=== PATIENT | female | born 1965 | race American Indian/Alaskan Native ===

== ENCOUNTER 2016-10-25 04:05 | Emergency (ER) | payer MEDICARE, OTHER ==
[2016-10-25 04:10] VITALS: BMI 34.0
--- NOTE | 2016-10-25 04:21 | ED PDOC ---
Arrival/HPI - General Chief Complaint: Alcohol Ingestion Time Seen by Provider: 10/25/16 04:09 Historian: Patient - History of Present Illness Narrative History of Present Illness (Text): 10/25/16 04:27 Paulette Abdullahi, a 51 year old female, whose past medical history includes hypertension and bronchitis, presents to the emergency department complaining of chest pain for the past two months. pt poor historian. cannot characterize her pain. Patient reports that she was drinking alcohol tonight. Patient denies any fever, shortness of breath, cough, vomiting or any other complaints at this time. after initial assessment, pt noted to be sleeping in nad. 10/25/16 05:47 Time/Duration: > month Symptom Onset: Gradual Symptom Course: Unchanged Activities at Onset: Rest Modifying Factors (Text): none Context: Home Associated Symptoms (Text): none Past Medical History - Provider Review Nursing Documentation Reviewed: Yes - Cardiac Hx Hypertension: Yes - Psychiatric Hx Substance Use: No Family/Social History - Physician Review Nursing Documentation Reviewed: Yes Family/Social History: No Known Family HX Smoking Status: Heavy Smoker > 10 Cigarettes Daily Hx Alcohol Use: Yes Hx Substance Use: No Allergies/Home Meds Allergies/Adverse Reactions: Allergies No Known Allergies Allergy (Verified 10/25/16 04:10) Home Medications: Home Meds Medication Instructions Recorded Confirmed Unobtainable 10/25/16 10/25/16 Review of Systems - Physician Review All systems were reviewed & negative as marked: Yes - Review of Systems Constitutional: absent: Fevers Respiratory: absent: SOB, Cough Cardiovascular: Chest Pain Gastrointestinal: absent: Vomiting Physical Exam Vital Signs Reviewed: Yes Vital Signs Temp Pulse Resp BP Pulse Ox 10/25/16 05:46 97.4 F L 80 19 108/62 100 10/25/16 04:20 98.5 F 76 20 103/59 L 98 Temperature: Afebrile Blood Pressure: Hypotensive Pulse: Regular Respiratory Rate: Normal Appearance: Positive for: Well-Appearing, Non-Toxic, Comfortable Pain Distress: None Mental Status: Positive for: Alert and Oriented X 3 - Systems Exam Head: Present: Atraumatic, Normocephalic Pupils: Present: PERRL Extroacular Muscles: Present: EOMI Conjunctiva: Present: Normal Mouth: Present: Moist Mucous Membranes Neck: Present: Normal Range of Motion Respiratory/Chest: Present: Clear to Auscultation, Good Air Exchange. No: Respiratory Distress, Accessory Muscle Use Cardiovascular: Present: Regular Rate and Rhythm, Normal S1, S2. No: Murmurs Abdomen: Present: Normal Bowel Sounds. No: Tenderness, Distention, Peritoneal Signs Upper Extremity: Present: Normal Inspection. No: Cyanosis, Edema Lower Extremity: Present: Normal Inspection. No: Edema Neurological: Present: GCS=15, CN II-XII Intact, Speech Normal Skin: Present: Warm, Dry, Normal Color. No: Rashes Psychiatric: Present: Alert, Oriented x 3, Normal Insight, Normal Concentration Medical Decision Making ED Course and Treatment: 10/25/16 04:33 Impression: 51 year old female with chest pain. Differential Diagnosis include but are not limited to: Plan: -- EKG -- Chest Xray -- Urinalysis -- Labs -- Reassess and disposition Prior Visits: Notes and results from previous visits were reviewed. Patient reported to emergency department on 10/06/16 for evaluation of chest pain on dry cough. Progress Notes: EKG: Ordered, reviewed, and independently interpreted the EKG. Rate : 68 BPM Rhythm : NSR Interpretation : No ST/T changes Chest X-ray: Chest Xray shows no acute disease. 10/25/16 05:33 pt sleeping in er, in nad. pt with 2 months of chest pain. stable for outpt management. 10/25/16 05:45 10/25/16 06:15 pt noted to be ambulatory in nad, with steady gait. - Lab Interpretations Lab Results: 10/25/16 04:40 10/25/16 04:40 Lab Results 10/25/16 04:40: WBC 5.1, RBC 3.80, Hgb 13.1, Hct 36.3, MCV 95.5, MCH 34.5, MCHC 36.1, RDW 12.7, Plt Count 222, MPV 9.3, Neutrophils % (Manual) Pending, Lymphocytes % (Manual) Pending, Monocytes % (Manual) Pending, PT 10.5, INR 1.00 , APTT 24.2, Sodium 143, Potassium 3.8, Chloride 107, Carbon Dioxide 26, Anion Gap 14, BUN 13, Creatinine 0.8, Est GFR ( Amer) > 60, Est GFR (Non-Af Amer) > 60, Random Glucose 80, Calcium 8.8, Magnesium 1.9, Total Bilirubin 0.5, AST 88 H, ALT 53, Alkaline Phosphatase 126, Lactate Dehydrogenase 984 H, Total Creatine Kinase 484 H, CK-MB (CK-2) 6.0 H, CK-MB (CK-2) % 1.2 L, Troponin I 0.07 , Total Protein 8.1, Albumin 4.1, Globulin 3.9, Albumin/Globulin Ratio 1.1 I have reviewed the lab results: Yes - RAD Interpretation Radiology Orders: 10/25/16 04:25 CHEST PORTABLE [RAD] Stat - EKG Interpretation Interpreted by ED Physician: Yes Type: 12 lead EKG - Scribe Statement The provider has reviewed the documentation as recorded by the Scribe Miles Chicas All medical record entries made by the Scribe were at my direction and personally dictated by me. I have reviewed the chart and agree that the record accurately reflects my personal performance of the history, physical exam, medical decision making, and the department course for this patient. I have also personally directed, reviewed, and agree with the discharge instructions and disposition. Disposition/Present on Arrival - Present on Arrival Any Indicators Present on Arrival: No History of DVT/PE: No History of Uncontrolled Diabetes: No Urinary Catheter: No History of Decub. Ulcer: No History Surgical Site Infection Following: None - Disposition Have Diagnosis and Disposition been Completed?: Yes Diagnosis: Chest pain, Alcohol abuse Disposition: HOME/ ROUTINE Disposition Time: 05:46 Patient Problems: Current Active Problems Problem Status Diagnosed Alcohol abuse Acute Chest pain Acute Condition: STABLE Discharge Instructions (ExitCare): Chest Pain (ED), Abuse of Alcohol (ED) Additional Instructions: please follow up with your doctor/clinic and specialist. return to er with worsening symptoms or concerns. Referrals: Michael Galeano [Primary Care Provider] - Follow up with primary [facility] [Outside] - Follow up with primary [facility] [Outside] - Follow up with primary [facility] [Outside] - Follow up with primary Raghu Rojas MD [Staff Provider] - Follow up with primary
[2016-10-25 05:18] LABS: HEMATOCRIT 36.3 % (36.0-48.0); MEAN CELL VOLUME 95.5 fL (80.0-105.0); MEAN CORPUSCULAR HEMOGLOBIN 34.5 pg (25.0-35.0); MEAN CORPUSCULAR HGB CONC 36.1 g/dl (31.0-37.0); MEAN PLATELET VOLUME 9.3 fl (7.0-11.0); PLATELET COUNT 222 10^3/uL (120.0-450.0); RED CELL DISTRIBUTION WIDTH 12.7 % (11.5-14.5); WHITE BLOOD COUNT 5.1 10^3/ul (4.5-11.0)
[2016-10-25 05:23] LABS: ADD MANUAL DIFF? YES
[2016-10-25 05:28] LABS: ALB/GLOB RATIO 1.1 (1.1-1.8); ALKALINE PHOSPHATASE 126 U/L (38-133); ALT/SGPT 53 U/L (7-56); AST/SGOT 88 U/L (15-39); BILIRUBIN,TOTAL 0.5 mg/dL (0.2-1.3); BLOOD UREA NITROGEN 13 mg/dL (7-21); CALCIUM 8.8 mg/dL (8.4-10.5); CARBON DIOXIDE 26 mmol/L (21-33); CHLORIDE 107 mmol/L (98-107); GFR AFRICAN-AMERICAN > 60; GLUCOSE,RANDOM 80 mg/dL (70-110); MAGNESIUM 1.9 mg/dL (1.7-2.2); POTASSIUM 3.8 mmol/L (3.6-5.0); SODIUM 143 mmol/L (132-148); TOTAL PROTEIN 8.1 g/dL (5.8-8.3)
[2016-10-25 05:39] LABS: TROPONIN I 0.07 ng/mL
[2016-10-25 05:46] LABS: PARTIAL THROMBOPLASTIN TIME 24.2 Seconds (23.7-30.8)
[2016-10-25 05:47] VITALS: BP 108/62; PULSE 80; RESP 19; TEMP 97.4; O2SAT 100
[2016-10-25 06:21] LABS: ATYPICAL LYMPHOCYTE 1 % (0.0-0.0); BAND 1 % (0-2); BASOPHIL 1 % (0.0-1.0); EOSINOPHIL 2 % (0.0-3.0); NEUTROPHIL 30 % (50.0-70.0); PLATELET ESTIMATE NORMAL (NORMAL)
--- NOTE | 2016-10-25 10:39 | RAD ---
HISTORY: cp COMPARISON: No prior. FINDINGS: LUNGS: No active pulmonary disease. PLEURA: No significant pleural effusion identified, no pneumothorax apparent. CARDIOVASCULAR: Normal. OSSEOUS STRUCTURES: No significant abnormalities. VISUALIZED UPPER ABDOMEN: Normal. OTHER FINDINGS: None. IMPRESSION: No active disease.
--- NOTE | 2016-10-26 09:29 | CARD ---
APPROVED REPORT EKG Measurement Heart [id number] <Conclusion> Normal sinus rhythm LVH by voltage Prolonged QT
== END 2016-10-25 06:18 | disposition home or self-care (01) ==
LOC: ED 04:05
DX: F10.10 Alcohol abuse, uncomplicated (principal); R07.9 Chest pain, unspecified; I10 Essential (primary) hypertension

== ENCOUNTER 2016-11-26 02:30 | Observation (INO) | payer MEDICARE, OTHER ==
[2016-11-26 04:33] LABS: ALB/GLOB RATIO 1.1 (1.1-1.8); ALKALINE PHOSPHATASE 95 U/L (38-133); ALT/SGPT 35 U/L (7-56); AST/SGOT 64 U/L (15-39); BILIRUBIN,TOTAL 0.5 mg/dL (0.2-1.3); BLOOD UREA NITROGEN 13 mg/dL (7-21); CALCIUM 8.7 mg/dL (8.4-10.5); CARBON DIOXIDE 27 mmol/L (21-33); CHLORIDE 105 mmol/L (98-107); GFR AFRICAN-AMERICAN > 60; GLUCOSE,RANDOM 82 mg/dL (70-110); POTASSIUM 3.6 mmol/L (3.6-5.0); SODIUM 142 mmol/L (132-148); TOTAL PROTEIN 7.8 g/dL (5.8-8.3)
--- NOTE | 2016-11-26 04:33 | ED PDOC ---
Arrival/HPI - General Chief Complaint: Alcohol Ingestion Time Seen by Provider: 11/26/16 02:52 Historian: Patient - History of Present Illness Narrative History of Present Illness (Text): 11/26/16 02:56 Paulette Abdullahi is a 51 year old female, whose past medical history includes hypertension, who presents to the Emergency department complaining of chest pain for the past few days. Patient states she regularly takes hypertension medication, but does not recall the name. Patient reports she had 1 glass of wine earlier tonight. Patient denies any fever, chills, shortness of breath, nausea, vomiting, diarrhea, urinary symptoms, back pain, neck pain, headache, dizziness, or any other complaints. Time/Duration: Other (few days) Symptom Onset: Gradual Symptom Course: Unchanged, Other (Constant) Activities at Onset: Rest, Light Context: Home Past Medical History - Provider Review Nursing Documentation Reviewed: Yes - Infectious Disease Hx of Infectious Diseases: None - Cardiac Hx Hypertension: Yes - Pulmonary Hx Bronchitis: Yes - Psychiatric Hx Anxiety: Yes Hx Depression: Yes Hx Substance Use: No - Anesthesia Hx Anesthesia: No Family/Social History - Physician Review Nursing Documentation Reviewed: Yes Family/Social History: No Known Family HX Smoking Status: Light Smoker < 10 Cigarettes Daily Hx Alcohol Use: Yes Frequency of alcohol use: Daily Hx Substance Use: No Allergies/Home Meds Allergies/Adverse Reactions: Allergies No Known Allergies Allergy (Verified 11/24/16 23:59) Home Medications: Home Meds Medication Instructions Recorded Confirmed Unobtainable 10/25/16 11/26/16 Review of Systems - Physician Review All systems were reviewed & negative as marked: Yes - Review of Systems Constitutional: Normal. absent: Fevers Eyes: Normal ENT: Normal Respiratory: Normal. absent: SOB, Cough Cardiovascular: Chest Pain Gastrointestinal: Normal. absent: Abdominal Pain, Diarrhea, Nausea, Vomiting Genitourinary Female: Normal. absent: Dysuria, Frequency, Hematuria, Urine Output Changes Musculoskeletal: Normal. absent: Back Pain, Neck Pain Skin: Normal. absent: Rash Neurological: Normal. absent: Headache, Dizziness Endocrine: Normal Hemo/Lymphatic: Normal Psychiatric: Normal Physical Exam Vital Signs Reviewed: Yes Vital Signs Temp Pulse Resp BP Pulse Ox 11/26/16 02:41 97.6 F 72 18 129/87 98 Temperature: Afebrile Blood Pressure: Normal Pulse: Regular Respiratory Rate: Normal Appearance: Positive for: Well-Appearing, Non-Toxic, Comfortable Pain Distress: None Mental Status: Positive for: Alert and Oriented X 3 - Systems Exam Head: Present: Atraumatic, Normocephalic Pupils: Present: PERRL Extroacular Muscles: Present: EOMI Conjunctiva: Present: Normal Mouth: Present: Moist Mucous Membranes Neck: Present: Normal Range of Motion Respiratory/Chest: Present: Clear to Auscultation, Good Air Exchange. No: Respiratory Distress, Accessory Muscle Use Cardiovascular: Present: Regular Rate and Rhythm, Normal S1, S2. No: Murmurs Abdomen: Present: Normal Bowel Sounds. No: Tenderness, Distention, Peritoneal Signs Back: Present: Normal Inspection Upper Extremity: Present: Normal Inspection. No: Cyanosis, Edema Lower Extremity: Present: Normal Inspection. No: Edema Neurological: Present: GCS=15, CN II-XII Intact, Speech Normal Skin: Present: Warm, Dry, Normal Color. No: Rashes Psychiatric: Present: Alert, Oriented x 3, Normal Insight, Normal Concentration Medical Decision Making ED Course and Treatment: 11/26/16 02:56 Impression: 51 year old female complaining of chest pain. Plan: -- EKG -- Chest X-ray -- Labs, cardiac enzymes -- Reassess and disposition Prior Visits: Notes and results from previous visits were reviewed. Progress Notes: Reviewed EKG, NSR at 72 bpm. Prolonged QT. Non-specific ST/T wave changes. 11/26/16 04:45 Case discussed with certified medical coding specialist education reporter, who is aware and agrees with plan. Case discussed with Dr. Malik, who is aware and agrees with plan. Accepts pt in to hospitalist service. Pt will go to Telemetry observation for chest pain. - Lab Interpretations Lab Results: 11/26/16 03:45 11/26/16 03:45 Lab Results 11/26/16 03:45: PT 11.1, INR 1.03, APTT 25.5 11/26/16 03:45: WBC 4.9, RBC 3.52, Hgb 12.1, Hct 35.0 L, MCV 99.4, MCH 34.4, MCHC 34.6, RDW 12.4, Plt Count 237, MPV 9.2 11/26/16 03:45: Sodium 142, Potassium 3.6, Chloride 105, Carbon Dioxide 27, Anion Gap 14, BUN 13, Creatinine 0.7, Est GFR ( Amer) > 60, Est GFR (Non- Af Amer) > 60, Random Glucose 82, Calcium 8.7, Total Bilirubin 0.5, AST 64 H, ALT 35, Alkaline Phosphatase 95, Lactate Dehydrogenase 889 H, Total Creatine Kinase 560 H, CK-MB (CK-2) 4.8 H, CK-MB (CK-2) % Cancelled, Troponin I 0.06, Total Protein 7.8, Albumin 4.0, Globulin 3.8, Albumin/Globulin Ratio 1.1 11/26/16 03:45: Alcohol, Quantitative 209 H I have reviewed the lab results: Yes - RAD Interpretation Radiology Orders: 11/26/16 02:56 CHEST PORTABLE [RAD] Stat [employer] Cutter: ED Physician - EKG Interpretation Interpreted by ED Physician: Yes Type: 12 lead EKG - Scribe Statement The provider has reviewed the documentation as recorded by the Scribe Leonor Knight All medical record entries made by the Scribe were at my direction and personally dictated by me. I have reviewed the chart and agree that the record accurately reflects my personal performance of the history, physical exam, medical decision making, and the department course for this patient. I have also personally directed, reviewed, and agree with the discharge instructions and disposition. Disposition/Present on Arrival - Present on Arrival Any Indicators Present on Arrival: No History of DVT/PE: No History of Uncontrolled Diabetes: No Urinary Catheter: No History of Decub. Ulcer: No History Surgical Site Infection Following: None - Disposition Have Diagnosis and Disposition been Completed?: Yes Diagnosis: Chest pain, Alcohol intoxication Disposition: HOSPITALIZED Disposition Time: 04:57 Patient Plan: Observation Patient Problems: Current Active Problems Problem Status Onset Alcohol intoxication Acute Chest pain Acute Condition: STABLE
[2016-11-26 04:37] VITALS: BMI 33.3
[2016-11-26 04:37] LABS: INR 1.03 (0.93-1.08); PARTIAL THROMBOPLASTIN TIME 25.5 Seconds (23.7-30.8)
[2016-11-26 04:43] LABS: MEAN CELL VOLUME 99.4 fL (80.0-105.0); MEAN CORPUSCULAR HEMOGLOBIN 34.4 pg (25.0-35.0); MEAN CORPUSCULAR HGB CONC 34.6 g/dl (31.0-37.0); WHITE BLOOD COUNT 4.9 10^3/ul (4.5-11.0)
[2016-11-26 04:44] LABS: MEAN PLATELET VOLUME 9.2 fl (7.0-11.0); RED CELL DISTRIBUTION WIDTH 12.4 % (11.5-14.5); TROPONIN I 0.06 ng/mL
--- NOTE | 2016-11-26 05:58 | CP.PCM.PN ---
Subjective - Date & Time of Evaluation Date of Evaluation: 11/26/16 Time of Evaluation: 05:49 - Subjective Subjective: This 51 year old woman was seen in the ER in bed # 1, she was sleeping, woke her up to get H & P, during questioning patient went back to several times, had to wake her up to continue my questioning, states that she came from home, had little wine yesterday, she experienced mid sternal chest pain about lunch time yesterday, no radiation of pain, pain was severe, has no chest pain now, has nausea, vomited x 2, denies sob, palpitation, has little sweating, cough, head ache, dizziness. She fell one week ago, sustained a laceration on right eyebrow.Denies any other injuries at that time.Has no LOC. Medical record was reviewed. ALLERGIES:No known drug allergies. PMH: HTN. Bronchitis. PAST SURGICAL HISTORY:Denies. FH:Denies. SOCIAL HISTORY:Smokes 3 Cig/day. ETOH-Moderate.Does not answer in detail. Drug-Denies. OB-CLERICAL ASSISTANT-NA. PMD:. Objective - Vital Signs/Intake and Output Vital Signs (last 24 hours): Temp Pulse Resp BP Pulse Ox 97.6 F 72 18 129/87 98 11/26/16 02:41 11/26/16 02:41 11/26/16 02:41 11/26/16 02:41 11/26/16 02:41 - Medications Medications: Current Medications Aspirin (Aspirin Chewable) 81 mg PO DAILY [facility] Chlordiazepoxide (Librium) 25 mg PO Q4H PRN PRN Reason: Withdrawl Folic Acid (Folic Acid) 1 mg PO DAILY [facility] Multivitamins/Vitamin C 10 ml/Thiamine HCl 100 mg/ Folic Acid 1 mg/ Sodium Chloride 1,011.2 mls @ 100 mls/hr IV .Q10H7M [facility]YANIRA Lorazepam (Ativan) 1 mg IVP Q4H PRN PRN Reason: Symptoms of alcohol withdrawl Multivitamins/Minerals (Therapeutic-M Tab) 1 tab PO DAILY [facility] Nitroglycerin (Nitrostat Sl Tab) mg SL Q5M PRN PRN Reason: chest pain Thiamine HCl (Vitamin B1 Tab) 100 mg PO DAILY [facility] - Labs Labs: PT 11.1 Seconds (9.9-11.8) 11/26/16 03:45 INR 1.03 (0.93-1.08) 11/26/16 03:45 APTT 25.5 Seconds (23.7-30.8) 11/26/16 03:45 - Constitutional Appears: No Acute Distress, Other (Falls asleep frequently during examination.) - Head Exam Additional comments: Right forehead has healing transverse wound. - Eye Exam Eye Exam: Conjunctival injection (Positive .) - ENT Exam ENT Exam: Mucous Membranes Dry - Neck Exam Neck Exam: Normal Inspection - Cardiovascular Exam Cardiovascular Exam: REGULAR RHYTHM, +S1 (Normal.), +S2 (Normal.). absent: Diastolic murmur, JVD, Murmur - GI/Abdominal Exam GI & Abdominal Exam: Soft (Yes.), Normal Bowel Sounds. absent: Distended, Firm , Guarding, Rigid, Tenderness, Hernia, Mass, Organomegaly, Pulsatile Mass, Rebound - Rectal Exam Rectal Exam: Deferred - Extremities Exam Extremities Exam: absent: Calf Tenderness, Pedal Edema, Tenderness - Back Exam Back Exam: NORMAL INSPECTION - Neurological Exam Neurological Exam: Altered Additional comments: Frequently falls asleep during examination. - Psychiatric Exam Psychiatric exam: Depressed - Skin Skin Exam: Dry, Normal Color Assessment and Plan - Assessment and Plan (Free Text) Assessment: A/P: Chest Pain.Indeterminate troponin. Serial EKG,Enzymes. ASA. Cardiology consultation. Alcohol Intoxication. Seizure precautions. Banana bag. Folic acid,MIV,Thiamine. Librium. Ativan. HTN. Low sodium diet. Monitor BP, treat prn. Elevated CK. Hydration. Elevated AST. Monitor. GI/DVT prophylaxis.
[2016-11-26 07:59] LABS: BASO # 0.03 K/mm3 (0.0-2.0); BASO % 0.8 % (0.0-3.0); EOS # 0.2 (0.0-0.7); EOS % 4.1 % (1.5-5.0); GRAN # 0.95 (1.4-6.5); GRAN % 24.1 % (50.0-68.0); LYMPH # 2.5 (1.2-3.4); LYMPH % 63.1 % (22.0-35.0); MEAN CELL VOLUME 97.4 fL (80.0-105.0); MEAN CORPUSCULAR HEMOGLOBIN 33.8 pg (25.0-35.0); MEAN CORPUSCULAR HGB CONC 34.7 g/dl (31.0-37.0); MEAN PLATELET VOLUME 8.9 fl (7.0-11.0); MONO # 0.3 (0.1-0.6); MONO % 7.9 % (1.0-6.0); PLATELET COUNT 216 10^3/uL (120.0-450.0); RED CELL DISTRIBUTION WIDTH 12.9 % (11.5-14.5); WHITE BLOOD COUNT 3.9 10^3/ul (4.5-11.0)
[2016-11-26 08:13] LABS: ALB/GLOB RATIO 0.9 (1.1-1.8); ALKALINE PHOSPHATASE 84 U/L (38-133); ALT/SGPT 39 U/L (7-56); AST/SGOT 60 U/L (15-39); BILIRUBIN,TOTAL 0.7 mg/dL (0.2-1.3); BLOOD UREA NITROGEN 13 mg/dL (7-21); CALCIUM 8.3 mg/dL (8.4-10.5); CARBON DIOXIDE 26 mmol/L (21-33); CHLORIDE 108 mmol/L (98-107); CHOLESTEROL 187 mg/dL (130-200); GFR AFRICAN-AMERICAN > 60; GLUCOSE,RANDOM 78 mg/dL (70-110); MAGNESIUM 1.9 mg/dL (1.7-2.2); PHOSPHOROUS 3.9 mg/dL (2.5-4.5); POTASSIUM 3.9 mmol/L (3.6-5.0); SODIUM 143 mmol/L (132-148); TOTAL PROTEIN 7.4 g/dL (5.8-8.3)
[2016-11-26 08:17] LABS: ADD MANUAL DIFF? NO
[2016-11-26 08:22] LABS: TROPONIN I 0.06 ng/mL
[2016-11-26] MEDS: Multivitamin (MVI) 10 ML, Thiamine 100 MG, Folic Acid 1 MG in Sodium Chloride 0.9% 1,00... IV SCH ×3 (08:35→18:41)
[2016-11-26] MEDS ORDERED: Enoxaparin 40 mg Syringe SC SCH (10:00)
[2016-11-26 11:48] VITALS: O2SAT 94
[2016-11-26] MEDS ORDERED: Pneumococcal 23-Valent Vaccine IM ONE (13:06)
--- NOTE | 2016-11-26 16:17 | CARD ---
APPROVED REPORT EKG Measurement Heart [id number] <Conclusion> Normal sinus rhythm Nonspecific T wave abnormality Prolonged QT Abnormal ECG
--- NOTE | 2016-11-26 16:24 | CARD ---
APPROVED REPORT EKG Measurement Heart [id number] <Conclusion> Normal sinus rhythm Prolonged QT Abnormal ECG
--- NOTE | 2016-11-26 16:27 | CARD ---
APPROVED REPORT EKG Measurement Heart [id number] <Conclusion> Normal sinus rhythm Prolonged QT Abnormal ECG
[2016-11-26 18:34] LABS: URINE APPEARANCE CLEAR (CLEAR); URINE BILIRUBIN NEGATIVE (NEGATIVE); URINE BLOOD NEGATIVE (NEGATIVE); URINE COLOR YELLOW (YELLOW); URINE GLUCOSE (UA) NEGATIVE (NEGATIVE); URINE KETONE NEGATIVE (NEGATIVE); URINE LEUKOCYTE ESTERASE TRACE Leu/uL (NEGATIVE); URINE PROTEIN NEGATIVE mg/dL (<30 mg/dL); URINE UROBILINOGEN 0.2 E.U./dL (<1 E.U./dL)
[2016-11-26 18:55] VITALS: BP 117/59; RESP 20; TEMP 98.8
[2016-11-26 19:43] LABS: URINE BACTERIA FEW (NEG); URINE RBC 0 - 2 /hpf (0-2)
[2016-11-26 23:57] VITALS: PULSE 73
[2016-11-27] MEDS ORDERED: Multivitamin With Minerals Tab PO SCH (10:00)
[2016-11-28 16:52] LABS: HEMATOCRIT 33.7 % (36.0-48.0); MEAN CELL VOLUME 97.4 fL (80.0-105.0); MEAN CORPUSCULAR HEMOGLOBIN 34.1 pg (25.0-35.0); MEAN PLATELET VOLUME 9.4 fl (7.0-11.0); RED CELL DISTRIBUTION WIDTH 12.4 % (11.5-14.5); WHITE BLOOD COUNT 4.1 10^3/ul (4.5-11.0)
[2016-12-01 18:51] LABS: ALB/GLOB RATIO 0.9 (1.1-1.8); ALKALINE PHOSPHATASE 78 U/L (38-133); ALT/SGPT 36 U/L (7-56); AST/SGOT 64 U/L (15-39); BILIRUBIN,TOTAL 0.9 mg/dL (0.2-1.3); BLOOD UREA NITROGEN 12 mg/dL (7-21); CALCIUM 8.4 mg/dL (8.4-10.5); CARBON DIOXIDE 28 mmol/L (21-33); CHLORIDE 105 mmol/L (98-107); GFR AFRICAN-AMERICAN > 60; GLUCOSE,RANDOM 86 mg/dL (70-110); SODIUM 139 mmol/L (132-148); TOTAL PROTEIN 6.9 g/dL (5.8-8.3)
--- NOTE | 2016-12-12 08:02 | CP.PCM.DIS ---
Provider - Provider Date of Admission: 11/26/16 04:59 Attending physician: Mary Ann Mcmullen MD Time Spent in preparation of Discharge (in minutes): 20 Hospital Course - Lab Results Lab Results: Most Recent Lab Values WBC 4.1 10^3/ul (4.5-11.0) L 11/27/16 07:00 RBC 3.46 10^6/uL (3.5-6.1) L 11/27/16 07:00 Hgb 11.8 gm/dL (12.0-16.0) L 11/27/16 07:00 Hct 33.7 % (36.0-48.0) L 11/27/16 07:00 MCV 97.4 fL (80.0-105.0) 11/27/16 07:00 MCH 34.1 pg (25.0-35.0) 11/27/16 07:00 MCHC 35.0 g/dl (31.0-37.0) 11/27/16 07:00 RDW 12.4 % (11.5-14.5) 11/27/16 07:00 Plt Count 214 10^3/uL (120.0-450.0) 11/27/16 07:00 MPV 9.4 fl (7.0-11.0) 11/27/16 07:00 Gran % 24.1 % (50.0-68.0) L 11/26/16 07:30 Lymph % (Auto) 63.1 % (22.0-35.0) H 11/26/16 07:30 [place] % (Auto) 7.9 % (1.0-6.0) H 11/26/16 07:30 Eos % (Auto) 4.1 % (1.5-5.0) 11/26/16 07:30 Baso % (Auto) 0.8 % (0.0-3.0) 11/26/16 07:30 Gran # 0.95 (1.4-6.5) L 11/26/16 07:30 Lymph # 2.5 (1.2-3.4) 11/26/16 07:30 [place] # 0.3 (0.1-0.6) 11/26/16 07:30 Eos # 0.2 (0.0-0.7) 11/26/16 07:30 Baso # 0.03 K/mm3 (0.0-2.0) 11/26/16 07:30 PT 11.1 Seconds (9.9-11.8) 11/26/16 03:45 INR 1.03 (0.93-1.08) 11/26/16 03:45 APTT 25.5 Seconds (23.7-30.8) 11/26/16 03:45 Sodium 139 mmol/L (132-148) 11/27/16 07:00 Potassium 4.0 mmol/L (3.6-5.0) 11/27/16 07:00 Chloride 105 mmol/L (98-107) 11/27/16 07:00 Carbon Dioxide 28 mmol/L (21-33) 11/27/16 07:00 Anion Gap 10 (10-20) 11/27/16 07:00 BUN 12 mg/dL (7-21) 11/27/16 07:00 Creatinine 0.7 mg/dL (0.5-1.4) 11/27/16 07:00 Est GFR ( Amer) > 60 11/27/16 07:00 Est GFR (Non-Af Amer) > 60 11/27/16 07:00 Random Glucose 86 mg/dL (70-110) 11/27/16 07:00 Calcium 8.4 mg/dL (8.4-10.5) 11/27/16 07:00 Phosphorus 3.9 mg/dL (2.5-4.5) 11/26/16 07:30 Magnesium 1.9 mg/dL (1.7-2.2) 11/26/16 07:30 Total Bilirubin 0.9 mg/dL (0.2-1.3) 11/27/16 07:00 AST 64 U/L (15-39) H 11/27/16 07:00 ALT 36 U/L (7-56) 11/27/16 07:00 Alkaline Phosphatase 78 U/L (38-133) 11/27/16 07:00 Lactate Dehydrogenase 889 U/L (333-699) H 11/26/16 03:45 Total Creatine Kinase 560 U/L (35-230) H 11/26/16 03:45 CK-MB (CK-2) 4.8 ng/mL (0.0-3.6) H 11/26/16 03:45 CK-MB (CK-2) % Cancelled 11/26/16 03:45 Troponin I 0.05 ng/mL 11/26/16 11:29 Total Protein 6.9 g/dL (5.8-8.3) 11/27/16 07:00 Albumin 3.3 g/dL (3.0-4.8) 11/27/16 07:00 Globulin 3.5 gm/dL 11/27/16 07:00 Albumin/Globulin Ratio 0.9 (1.1-1.8) L 11/27/16 07:00 Triglycerides 209 mg/dL (35-160) H 11/26/16 07:30 Cholesterol 187 mg/dL (130-200) 11/26/16 07:30 LDL Cholesterol Direct 58 mg/dL (0-129) 11/26/16 07:30 HDL Cholesterol 104 mg/dL (29-60) H 11/26/16 07:30 TSH 3rd Generation 1.41 mIU/mL (0.46-4.68) 11/26/16 07:30 Urine Color Yellow (YELLOW) 11/26/16 18:00 Urine Appearance Clear (CLEAR) 11/26/16 18:00 Urine pH 6.0 (4.7-8.0) 11/26/16 18:00 Ur Specific [place] 1.015 (1.005-1.035) 11/26/16 18:00 Urine Protein Negative mg/dL (<30 mg/dL) 11/26/16 18:00 Urine Glucose (UA) Negative mg/dL (NEGATIVE) 11/26/16 18:00 Urine Ketones Negative mg/dL (NEGATIVE) 11/26/16 18:00 Urine Blood Negative (NEGATIVE) 11/26/16 18:00 Urine Nitrate Negative (NEGATIVE) 11/26/16 18:00 Urine Bilirubin Negative (NEGATIVE) 11/26/16 18:00 Urine Urobilinogen 0.2 E.U./dL (<1 E.U./dL) 11/26/16 18:00 Ur Leukocyte Esterase Trace Swapnil/uL (NEGATIVE) H 11/26/16 18:00 Urine RBC 0 - 2 /hpf (0-2) 11/26/16 18:00 Urine WBC 2 - 5 /hpf (0-6) 11/26/16 18:00 Ur Epithelial Cells 1 - 3 /hpf (0-5) 11/26/16 18:00 Urine Bacteria Few (NEG) 11/26/16 18:00 Urine Opiates Screen Negative (NEGATIVE) 11/26/16 18:00 Urine Methadone Screen Negative (NEGATIVE) 11/26/16 18:00 Ur Barbiturates Screen Negative (NEGATIVE) 11/26/16 18:00 Ur Phencyclidine Scrn Negative (NEGATIVE) 11/26/16 18:00 Ur Amphetamines Screen Negative (NEGATIVE) 11/26/16 18:00 U Benzodiazepines Scrn Negative (NEGATIVE) 11/26/16 18:00 U Oth Cocaine Metabols Positive (NEGATIVE) H 11/26/16 18:00 U Cannabinoids Screen Negative (NEGATIVE) 11/26/16 18:00 Alcohol, Quantitative 209 mg/dL (0-10) H 11/26/16 03:45 - Hospital Course Hospital Course: 51 yrs old female was admitted in the hospital for evaluation of chest pain.EKG was negative for ischemic changes, initial cardiac enzymes were normal. Patient did not want to stay in the hospital and signed out against medicla advice.She was alert ,awake and oriented and understood the risk of leaving against medical advice. Discharge Plan - Follow Up Plan Condition: STABLE Disposition: HOME/ ROUTINE Instructions: Chest Pain (DC), Chest Pain (GEN)
== END 2016-11-27 20:52 | disposition home or self-care (01) ==
LOC: ED 02:30 → ERH 04:59 → CCU 07:14 → 2RNO 11:49
PROVIDERS: ADMIT Internal Medicine; ATTEND Internal Medicine
DX: R07.9 Chest pain, unspecified (principal); F10.129 Alcohol abuse with intoxication, unspecified; I10 Essential (primary) hypertension; S01.111D Laceration without foreign body of right eyelid and periocular area, subsequent encounter; Z91.81 History of falling; J40 Bronchitis, not specified as acute or chronic; F41.9 Anxiety disorder, unspecified; F32.89 Other specified depressive episodes; F17.210 Nicotine dependence, cigarettes, uncomplicated; R40.2412 Glasgow coma scale score 13-15, at arrival to emergency department
CPT/HCPCS: 36415; 80053; 80061; 81001; 82550; 82553; 83615; 83735; 84100; 84443; 84484; 85025; 85027; 85610; 85730; 93005; 96365; 96366; 96372; 96376; 99285; G0378; G0480; J1650; J3411; J7040

== ENCOUNTER 2016-12-06 02:42 | Observation (INO) | payer MEDICARE, OTHER ==
[2016-12-06 02:43] VITALS: BMI 33.3
--- NOTE | 2016-12-06 03:35 | ED PDOC ---
Arrival/HPI - General Chief Complaint: Weakness/Neurological Deficit Time Seen by Provider: 12/06/16 03:15 Historian: Patient - History of Present Illness Narrative History of Present Illness (Text): 12/06/16 03:37 A 51 year old female presents to the emergency department complaining of chest pain that developed earlier today. Patient reports retrosternal chest pain. Patient notes nothing makes it better or worse. Patient also reports shortness of breath when has chest pains. Patient denies any other complaints at this time. Time/Duration: Other (earlier today) Symptom Onset: Sudden Symptom Course: Unchanged Activities at Onset: Rest Modifying Factors (Text): none Context: Home Past Medical History - Provider Review Nursing Documentation Reviewed: Yes - Infectious Disease Hx of Infectious Diseases: None - Cardiac Hx Cardiac Disorders: Yes Hx Hypertension: Yes - Pulmonary Hx Respiratory Disorders: Yes Hx Bronchitis: Yes - Neurological Hx Neurological Disorder: Yes - HEENT Hx HEENT Disorder: No - Renal Hx Renal Disorder: No - Endocrine/Metabolic Hx Endocrine Disorders: No - Hematological/Oncological Hx Blood Disorders: No - Integumentary Hx Dermatological Disorder: No - Musculoskeletal/Rheumatological Hx Musculoskeletal Disorders: No Hx Falls: Yes - Gastrointestinal Hx Gastrointestinal Disorders: No - Genitourinary/Gynecological Hx Genitourinary Disorders: No - Psychiatric Hx Psychophysiologic Disorder: Yes Hx Anxiety: Yes Hx Depression: Yes Hx Substance Use: No (DENIES) Other/Comment: ETOH ABUSE - Anesthesia Hx Anesthesia: No Family/Social History - Physician Review Nursing Documentation Reviewed: Yes Family/Social History: No Known Family HX Smoking Status: Current Some Days Smoker Hx Alcohol Use: Yes (LAST DRANK WINE) Hx Substance Use: No (DENIES) Allergies/Home Meds Allergies/Adverse Reactions: Allergies No Known Allergies Allergy (Verified 11/26/16 11:26) Home Medications: Home Meds Medication Instructions Recorded Confirmed Unobtainable 10/25/16 11/26/16 Review of Systems - Physician Review All systems were reviewed & negative as marked: Yes Physical Exam - Physical Exam Narrative Physical Exam (Text): 12/06/16 03:35 - Review of Systems Constitutional: Normal. absent: Fatigue, Weight Change, Fevers Eyes: Normal ENT: Normal Respiratory: Present: shortness of breath absent: Cough, Sputum Cardiovascular: Present: retrosternal chest pain absent: Palpitations, Syncope Gastrointestinal: Normal absent: Abdominal pain, Diarrhea, Nausea, Vomiting Genitourinary: Normal. absent: Dysuria, Frequency, Hematuria Musculoskeletal: Normal. absent: Arthralgias, Back Pain, Neck Pain Skin: Normal Neurological: Normal absent: Focal Weakness Endocrine: Normal Hemo/Lymphatic: Normal Psychiatric: Normal - Physical exam Patient appears age appropriate, speaking full sentences without difficulty - Systems Exam Head: Present: Atraumatic, Normocephalic Pupils: Present: PERRL Extraocular Muscles: Present: EOMI Conjunctiva: Present: Normal Mouth: Present: Moist Mucous Membranes Neck: Present: Normal Range of Motion. No: MIDLINE TENDERNESS, Paraspinal Tenderness Respiratory/Chest: Present: Clear to Auscultation, Good Air Exchange. No: Respiratory Distress, Accessory Muscle Use, Tachypneic Cardiovascular: Present: Regular Rate and Rhythm, Normal S1, S2, Peripheral Pulses Present. No: Murmurs Abdomen: Present: Normal Bowel Sounds, No: Tenderness, Peritoneal Signs, Rebound, Guarding, Distention Back: Present: Normal Inspection. No: Midline Tenderness, Paraspinal Tenderness Upper Extremity: Present: Normal Inspection. No: Cyanosis, Edema Lower Extremity: Present: Normal Inspection. No: Edema Neurological: Present: GCS=15, Speech Normal, cranial nerves II through XII fully intact with no cerebellar abnormality, neuro-sensory fully intact. No focal neurological deficits. Skin: Present: Warm, Dry, Normal Color. No: Rashes Lymphatic: Present: OX3, NI, NC Psychiatric: Present: Alert, Oriented x 3, Normal Insight, Normal Concentration Vital Signs Temp Pulse Resp BP Pulse Ox 12/06/16 02:42 97.2 F L 67 18 149/95 H 100 Temperature: Afebrile Blood Pressure: Hypertensive Pulse: Regular Respiratory Rate: Normal Appearance: Positive for: Well-Appearing, Non-Toxic, Comfortable Pain Distress: None Mental Status: Positive for: Alert and Oriented X 3 Medical Decision Making ED Course and Treatment: 12/06/16 03:32 Impression: A 51 year old female with chest pain. On physical exam, no acute findings. Plan: -- EKG -- chest xray -- labs -- Aspirin -- Reassess and disposition Prior Visits: Notes and results from previous visits were reviewed. Patient last reported to the emergency department on 11/26/16 for evaluation of chest pain. Patient was admitted to Telemetry observation. No cardiology note in the chart seen. Progress Notes: Chest xray shows no cardiomegaly, no pneumothorax, no effusion, no infiltrates. 12/06/16 05:15 pt in no distress at this time agrees with observation in the hospital case dw Dr. Malik, accepted pt to hospitalist service - Lab Interpretations Lab Results: 12/06/16 03:58 12/06/16 03:58 Lab Results 12/06/16 03:58: Sodium 144, Potassium 4.0, Chloride 106, Carbon Dioxide 31, Anion Gap 11, BUN 13, Creatinine 0.7, Est GFR ( Amer) > 60, Est GFR (Non- Af Amer) > 60, Random Glucose 99, Calcium 9.0, Total Bilirubin 0.5, AST 66 H, ALT 43, Alkaline Phosphatase 85, Lactate Dehydrogenase 858 H, Total Creatine Kinase 252 H, CK-MB (CK-2) 3.7 H, CK-MB (CK-2) % Pending, Troponin I 0.05, Total Protein 7.5, Albumin 4.0, Globulin 3.5, Albumin/Globulin Ratio 1.1 12/06/16 03:58: PT 10.7, INR 0.99, APTT 23.4 L 12/06/16 03:58: WBC 5.3 D, RBC 3.66, Hgb 12.6, Hct 36.1, MCV 98.6, MCH 34.4, MCHC 34.9, RDW 12.2, Plt Count 229, MPV 10.0, Gran % 36.4 L, Lymph % (Auto) 52.7 H, [place] % (Auto) 6.2 H, Eos % (Auto) 4.1, Baso % (Auto) 0.6, Gran # 1.93, Lymph # 2.8, [place] # 0.3, Eos # 0.2, Baso # 0.03 I have reviewed the lab results: Yes - RAD Interpretation Radiology Orders: 12/06/16 03:28 CHEST PORTABLE [RAD] Stat - EKG Interpretation Interpreted by ED Physician: Yes Type: 12 lead EKG - Medication Orders Current Medication Orders: Discontinued Medications Aspirin (Aspirin Chewable) 324 mg PO STAT STA Stop: 12/06/16 03:28 Last Admin: 12/06/16 04:10 Dose: 324 mg Nitroglycerin (Nitrostat Sl Tab) 0.3 mg SL STAT STA Stop: 12/06/16 05:11 - Scribe Statement The provider has reviewed the documentation as recorded by the Scribe Miles Chicas All medical record entries made by the Scribe were at my direction and personally dictated by me. I have reviewed the chart and agree that the record accurately reflects my personal performance of the history, physical exam, medical decision making, and the department course for this patient. I have also personally directed, reviewed, and agree with the discharge instructions and disposition. Disposition/Present on Arrival - Present on Arrival Any Indicators Present on Arrival: No History of DVT/PE: No History of Uncontrolled Diabetes: No Urinary Catheter: No History of Decub. Ulcer: No History Surgical Site Infection Following: None - Disposition Have Diagnosis and Disposition been Completed?: Yes Diagnosis: Chest pain Disposition: HOSPITALIZED Disposition Time: 05:16 Patient Plan: Observation Condition: FAIR Discharge Instructions (ExitCare): Chest Pain (ED) Referrals: Issac Galeano MD [Primary Care Provider] - Follow up with primary
[2016-12-06 04:16] LABS: ADD MANUAL DIFF? NO
[2016-12-06 04:26] LABS: ALB/GLOB RATIO 1.1 (1.1-1.8); ALKALINE PHOSPHATASE 85 U/L (38-133); ALT/SGPT 43 U/L (7-56); AST/SGOT 66 U/L (15-39); BILIRUBIN,TOTAL 0.5 mg/dL (0.2-1.3); BLOOD UREA NITROGEN 13 mg/dL (7-21); CARBON DIOXIDE 31 mmol/L (21-33); CHLORIDE 106 mmol/L (98-107); GFR AFRICAN-AMERICAN > 60; GLUCOSE,RANDOM 99 mg/dL (70-110); SODIUM 144 mmol/L (132-148); TOTAL PROTEIN 7.5 g/dL (5.8-8.3)
[2016-12-06 04:33] LABS: INR 0.99 (0.93-1.08); PARTIAL THROMBOPLASTIN TIME 23.4 Seconds (23.7-30.8)
[2016-12-06 04:37] LABS: TROPONIN I 0.05 ng/mL
[2016-12-06 04:41] LABS: BASO % 0.6 % (0.0-3.0); EOS % 4.1 % (1.5-5.0); GRAN # 1.93 (1.4-6.5); GRAN % 36.4 % (50.0-68.0); HEMATOCRIT 36.1 % (36.0-48.0); LYMPH # 2.8 (1.2-3.4); LYMPH % 52.7 % (22.0-35.0); MEAN CELL VOLUME 98.6 fL (80.0-105.0); MEAN CORPUSCULAR HEMOGLOBIN 34.4 pg (25.0-35.0); MEAN CORPUSCULAR HGB CONC 34.9 g/dl (31.0-37.0); MONO % 6.2 % (1.0-6.0); PLATELET COUNT 229 10^3/uL (120.0-450.0); RED CELL DISTRIBUTION WIDTH 12.2 % (11.5-14.5); WHITE BLOOD COUNT 5.3 10^3/ul (4.5-11.0)
[2016-12-06 04:42] LABS: BASO # 0.03 K/mm3 (0.0-2.0); EOS # 0.2 (0.0-0.7); MONO # 0.3 (0.1-0.6)
--- NOTE | 2016-12-06 06:19 | CP.PCM.HP ---
<Daniel Mullen - Last Filed: 12/06/16 06:09> History of Present Illness - History of Present Illness History of Present Illness: 51 year old female with past medical history of hypertension and bronchitis presents to [facility] with chest pain. Patient is a poor historian, she keeps on falling asleep during history and physical. Patient reports the chest pain started 30mins before she came to the ED. The pain is located at left sternal border, sharp in quality, non radiating, stating it is "10/10" in intensity. Patient states the pain is worse whenever she moves around. She states this is the first time she is experiencing chest pain, but our record shows she was last seen at [facility] on 11/26/16 for chest pain. Unable to obtain detailed ROS due to patient keeps on falling asleep. PMD: Dr. Galeano PMHx: hypertension and bronchitis PSHx: Denies FH:Denies Allergy: NKDA Social Hx:Smokes 3 Cig/day, ETOH-Moderate, does not answer in detail. Home Meds: none Present on Admission - Present on Admission Any Indicators Present on Admission: No History of DVT/PE: No History of Uncontrolled Diabetes: No Review of Systems - Review of Systems Systems not reviewed;Unavailable: Uncooperative (keeps on falling asleep) - Constitutional Constitutional: As Per HPI - EENT Eyes: As Per HPI Ears: As Per HPI Nose/Mouth/Throat: As Per HPI - Breasts Breasts: As Per HPI - Cardiovascular Cardiovascular: As Per HPI, Chest Pain, Chest Pain with Activity. absent: Syncope - Respiratory Respiratory: As Per HPI - Gastrointestinal Gastrointestinal: As Per HPI - Genitourinary Genitourinary: As Per HPI - Reproductive: Female Reproductive:Female: As Per HPI - Musculoskeletal Musculoskeletal: As Per HPI - Integumentary Integumentary: As Per HPI - Neurological Neurological: As Per HPI - Psychiatric Psychiatric: As Per HPI - Endocrine Endocrine: As Per HPI - Hematologic/Lymphatic Hematologic: As Per HPI Past Patient History - Infectious Disease Hx of Infectious Diseases: None - Past Social History Smoking Status: Current Some Days Smoker - CARDIAC Hx Cardiac Disorders: Yes Hx Hypertension: Yes - PULMONARY Hx Respiratory Disorders: Yes Hx Bronchitis: Yes - NEUROLOGICAL Hx Neurological Disorder: Yes - HEENT Hx HEENT Problems: No - RENAL Hx Chronic Kidney Disease: No - ENDOCRINE/METABOLIC Hx Endocrine Disorders: No - HEMATOLOGICAL/ONCOLOGICAL Hx Blood Disorders: No - INTEGUMENTARY Hx Dermatological Problems: No - MUSCULOSKELETAL/RHEUMATOLOGICAL Hx Musculoskeletal Disorders: No Hx Falls: Yes - GASTROINTESTINAL Hx Gastrointestinal Disorders: No - GENITOURINARY/GYNECOLOGICAL Hx Genitourinary Disorders: No - PSYCHIATRIC Hx Psychophysiologic Disorder: Yes Hx Anxiety: Yes Hx Depression: Yes Hx Substance Use: No (DENIES) Other/Comment: ETOH ABUSE - SURGICAL HISTORY Hx Surgeries: No - ANESTHESIA Hx Anesthesia: No Meds Allergies/Adverse Reactions: Allergies Allergy/AdvReac Type Severity Reaction Status Date / Time No Known Allergies Allergy Verified 11/26/16 11:26 Physical Exam - Constitutional Appears: Non-toxic, No Acute Distress - Head Exam Head Exam: ATRAUMATIC, NORMAL INSPECTION, NORMOCEPHALIC - Eye Exam Eye Exam: Normal appearance, PERRL - ENT Exam ENT Exam: Mucous Membranes Moist - Neck Exam Neck exam: Positive for: Normal Inspection - Respiratory Exam Respiratory Exam: Clear to Auscultation Bilateral, NORMAL BREATHING PATTERN. absent: Rhonchi, Wheezes, Respiratory Distress - Cardiovascular Exam Cardiovascular Exam: REGULAR RHYTHM, RRR, +S1, +S2 Additional comments: chest pain on palpation, chest pain with upper extremity motion - GI/Abdominal Exam GI & Abdominal Exam: Normal Bowel Sounds, Soft. absent: Tenderness - Extremities Exam Extremities exam: Positive for: normal capillary refill, normal inspection, pedal pulses present - Back Exam Back exam: NORMAL INSPECTION - Neurological Exam Neurological exam: Alert, Oriented x3 - Psychiatric Exam Psychiatric exam: Normal Affect, Normal Mood - Skin Skin Exam: Dry, Intact, Normal Color, Warm Results - Vital Signs Recent Vital Signs: Last Vital Signs Temp 97.2 F L 12/06/16 02:42 Pulse 67 12/06/16 02:42 Resp 18 12/06/16 02:42 BP 149/95 H 12/06/16 02:42 Pulse Ox 100 12/06/16 02:42 - Labs Result Diagrams: 12/06/16 03:58 12/06/16 03:58 Assessment & Plan - Assessment and Plan (Free Text) Assessment: 51 year old female with past medical history of chest pain and bronchitis presents with chest pain Plan: Chest pain r/o ACS -Reproducible chest pain, likely musculoskeletal in nature -No acute findings on CXR -Troponin 0.05, repeats pending -EKG showed no acute ST changes, repeat pending -ASA po -Motrin po prn -Cardiology consult, Dr. Scales help appreciated Hypertension -No home medication reported -Hydralazine 10mg iv prn Obesity -Weight loss and lifestyle modifications suggested Prophylactic measures -Protonix -SCD <Ana Malik - Last Filed: 12/06/16 06:57> Results - Vital Signs Recent Vital Signs: Last Vital Signs Temp 97.5 F L 12/06/16 06:51 Pulse 73 12/06/16 06:51 Resp 19 12/06/16 06:51 BP 102/52 L 12/06/16 06:51 Pulse Ox 95 12/06/16 06:51 - Labs Result Diagrams: 12/06/16 03:58 12/06/16 03:58 Attending/Attestation - Attestation I have personally seen and examined this patient.: Yes I have fully participated in the care of the patient.: Yes I have reviewed all pertinent clinical information: Yes Notes (Text): 12/06/16 06:57 Patient was seen when she was in room # 9 in the ER. Agree with history , physical examination, assessment and plan.
--- NOTE | 2016-12-06 08:40 | RAD ---
HISTORY: cp COMPARISON: 10/25/2016 FINDINGS: LUNGS: No active pulmonary disease. PLEURA: No significant pleural effusion identified, no pneumothorax apparent. CARDIOVASCULAR: Normal. OSSEOUS STRUCTURES: No significant abnormalities. VISUALIZED UPPER ABDOMEN: Normal. OTHER FINDINGS: None. IMPRESSION: No active disease.
[2016-12-06 11:20] LABS: TROPONIN I 0.04 ng/mL
[2016-12-06] MEDS: Multivitamin Therapeutic Tab PO SCH (13:44)
--- NOTE | 2016-12-06 14:08 | CARD ---
APPROVED REPORT EKG Measurement Heart [id number] <Conclusion> Sinus bradycardia Otherwise normal ECG
--- NOTE | 2016-12-06 16:58 | CON ---
DATE: 12/06/2016 REASON FOR CONSULTATION: Chest pain. HISTORY OF PRESENT ILLNESS: The patient is a 51-year-old -[place] female who has history of hypertension, EtOH and cocaine abuse. She just tested positive for cocaine on most recent admission last week. The patient presents because of her substernal sharp chest pain. The patient denies any of shortness of breath. SOCIAL HISTORY: The patient is a smoker, cocaine abuser. MEDICATIONS: Hydralazine 10 mg intravenous q. 6 hours p.r.n., aspirin 81 mg once a day, folic acid 1 mg once a day, Protonix 40 mg p.o. once a day, thiamine 100 mg once a day. PHYSICAL EXAMINATION: GENERAL: The patient is a middle-aged female who does not appear to be in any distress. VITAL SIGNS: Blood pressure 102/52, heart rate 65, temperature 97.5, respirations 19. HEENT: Normocephalic. NECK: No JVD. CHEST: Clear. HEART: S1, S2 regular. EXTREMITIES: No edema. EKG revealed sinus bradycardia at a rate of 58. LABORATORY DATA: Hemoglobin and hematocrit, white count and platelet count are within normal limits. Alcohol level on admission was 144. SMA-7 on admission was within normal limits. Two sets of trop onins are in the indeterminate range. ASSESSMENT: 1. Chest pain, rule out myocardial infarction. 2. Rule out cocaine abuse. 3. Alcohol intoxication on admission. RECOMMENDATIONS: Continue hydralazine, aspirin, thiamine. Obtain an echocardiogram and urine for dr ug screen. Jerry Scales MD cc: [id number] TT: 12/06/2016 16:57:51 Confirmation # [id number] Dictation # [id number] mn
[2016-12-06 17:08] LABS: TROPONIN I 0.05 ng/mL
[2016-12-06] MEDS ORDERED: Pneumococcal 23-Valent Vaccine IM ONE (22:13)
[2016-12-07] MEDS ORDERED: Pantoprazole 40 mg EC Tab PO SCH (06:30)
[2016-12-07 06:34] VITALS: O2SAT 98
[2016-12-07 07:51] LABS: ADD MANUAL DIFF? NO
[2016-12-07 08:01] LABS: BASO # 0.02 K/mm3 (0.0-2.0); BASO % 0.4 % (0.0-3.0); EOS # 0.2 (0.0-0.7); EOS % 2.8 % (1.5-5.0); GRAN # 2.69 (1.4-6.5); GRAN % 49.4 % (50.0-68.0); HEMATOCRIT 34.5 % (36.0-48.0); LYMPH # 2.1 (1.2-3.4); LYMPH % 38.7 % (22.0-35.0); MEAN CELL VOLUME 97.2 fL (80.0-105.0); MEAN CORPUSCULAR HEMOGLOBIN 33.5 pg (25.0-35.0); MEAN CORPUSCULAR HGB CONC 34.5 g/dl (31.0-37.0); MEAN PLATELET VOLUME 9.4 fl (7.0-11.0); MONO # 0.5 (0.1-0.6); MONO % 8.7 % (1.0-6.0); PLATELET COUNT 192 10^3/uL (120.0-450.0); RED CELL DISTRIBUTION WIDTH 12.6 % (11.5-14.5); WHITE BLOOD COUNT 5.4 10^3/ul (4.5-11.0)
[2016-12-07 08:21] LABS: ALB/GLOB RATIO 1.1 (1.1-1.8); ALKALINE PHOSPHATASE 84 U/L (38-133); ALT/SGPT 36 U/L (7-56); AST/SGOT 36 U/L (15-39); BILIRUBIN,TOTAL 0.6 mg/dL (0.2-1.3); BLOOD UREA NITROGEN 12 mg/dL (7-21); CALCIUM 8.9 mg/dL (8.4-10.5); CARBON DIOXIDE 26 mmol/L (21-33); CHLORIDE 106 mmol/L (98-107); GFR AFRICAN-AMERICAN > 60; GLUCOSE,RANDOM 84 mg/dL (70-110); POTASSIUM 4.2 mmol/L (3.6-5.0); SODIUM 139 mmol/L (132-148); TOTAL PROTEIN 6.8 g/dL (5.8-8.3)
[2016-12-07] MEDS: Multivitamin Therapeutic Tab PO SCH (10:43)
--- NOTE | 2016-12-07 11:39 | CP.PCM.DIS ---
<Orin Kent - Last Filed: 12/07/16 12:04> Provider - Provider Date of Admission: 12/06/16 05:16 Attending physician: Kate Maddox MD Primary care physician: Issac Galeano MD Consults: Dr. Scales Time Spent in preparation of Discharge (in minutes): 35 Hospital Course - Lab Results Lab Results: Most Recent Lab Values WBC 5.4 10^3/ul (4.5-11.0) 12/07/16 07:30 RBC 3.55 10^6/uL (3.5-6.1) 12/07/16 07:30 Hgb 11.9 gm/dL (12.0-16.0) L 12/07/16 07:30 Hct 34.5 % (36.0-48.0) L 12/07/16 07:30 MCV 97.2 fL (80.0-105.0) 12/07/16 07:30 MCH 33.5 pg (25.0-35.0) 12/07/16 07:30 MCHC 34.5 g/dl (31.0-37.0) 12/07/16 07:30 RDW 12.6 % (11.5-14.5) 12/07/16 07:30 Plt Count 192 10^3/uL (120.0-450.0) 12/07/16 07:30 MPV 9.4 fl (7.0-11.0) 12/07/16 07:30 Gran % 49.4 % (50.0-68.0) L 12/07/16 07:30 Lymph % (Auto) 38.7 % (22.0-35.0) H 12/07/16 07:30 [place] % (Auto) 8.7 % (1.0-6.0) H 12/07/16 07:30 Eos % (Auto) 2.8 % (1.5-5.0) 12/07/16 07:30 Baso % (Auto) 0.4 % (0.0-3.0) 12/07/16 07:30 Gran # 2.69 (1.4-6.5) 12/07/16 07:30 Lymph # 2.1 (1.2-3.4) 12/07/16 07:30 Fountain # 0.5 (0.1-0.6) 12/07/16 07:30 Eos # 0.2 (0.0-0.7) 12/07/16 07:30 Baso # 0.02 K/mm3 (0.0-2.0) 12/07/16 07:30 PT 10.7 Seconds (9.9-11.8) 12/06/16 03:58 INR 0.99 (0.93-1.08) 12/06/16 03:58 APTT 23.4 Seconds (23.7-30.8) L 12/06/16 03:58 Sodium 139 mmol/L (132-148) 12/07/16 07:30 Potassium 4.2 mmol/L (3.6-5.0) 12/07/16 07:30 Chloride 106 mmol/L (98-107) 12/07/16 07:30 Carbon Dioxide 26 mmol/L (21-33) 12/07/16 07:30 Anion Gap 11 (10-20) 12/07/16 07:30 BUN 12 mg/dL (7-21) 12/07/16 07:30 Creatinine 0.7 mg/dL (0.5-1.4) 12/07/16 07:30 Est GFR ( Amer) > 60 12/07/16 07:30 Est GFR (Non-Af Amer) > 60 12/07/16 07:30 Random Glucose 84 mg/dL (70-110) 12/07/16 07:30 Calcium 8.9 mg/dL (8.4-10.5) 12/07/16 07:30 Total Bilirubin 0.6 mg/dL (0.2-1.3) 12/07/16 07:30 AST 36 U/L (15-39) 12/07/16 07:30 ALT 36 U/L (7-56) 12/07/16 07:30 Alkaline Phosphatase 84 U/L (38-133) 12/07/16 07:30 Lactate Dehydrogenase 598 U/L (333-699) 12/06/16 16:40 Total Creatine Kinase 168 U/L (35-230) 12/06/16 16:40 CK-MB (CK-2) 3.7 ng/mL (0.0-3.6) H 12/06/16 03:58 Troponin I 0.05 ng/mL D 12/06/16 16:40 Total Protein 6.8 g/dL (5.8-8.3) 12/07/16 07:30 Albumin 3.5 g/dL (3.0-4.8) 12/07/16 07:30 Globulin 3.3 gm/dL 12/07/16 07:30 Albumin/Globulin Ratio 1.1 (1.1-1.8) 12/07/16 07:30 Urine Opiates Screen Negative (NEGATIVE) 12/06/16 18:30 Urine Methadone Screen Negative (NEGATIVE) 12/06/16 18:30 Ur Barbiturates Screen Negative (NEGATIVE) 12/06/16 18:30 Ur Phencyclidine Scrn Negative (NEGATIVE) 12/06/16 18:30 Ur Amphetamines Screen Negative (NEGATIVE) 12/06/16 18:30 U Benzodiazepines Scrn Negative (NEGATIVE) 12/06/16 18:30 U Oth Cocaine Metabols Negative (NEGATIVE) 12/06/16 18:30 U Cannabinoids Screen Negative (NEGATIVE) 12/06/16 18:30 Alcohol, Quantitative 144 mg/dL (0-10) H 12/06/16 03:58 - Hospital Course Hospital Course: 51 year old female with past medical history of hypertension and bronchitis presents to [facility] [place] [facility] with chest pain. Patient reports the chest pain started 30mins before she came to the ED. The pain is located at left sternal border, sharp in quality, non radiating, stating it is "10/10" in intensity. Patient states the pain is worse whenever she moves around. Pt last seen at [facility] [place] on 11/26/16 for chest pain. EKG showed no acute ST changes and no acute findings on CXR. Observation in telemetry for chest pain. On floor: Administered daily ASA 81, and troponins at 0.05, 0.04, 0.05, consistent with prior labs. Hydralazine 10mg iv prn used for blood pressure control. Pt was advised on weight loss and lifestyle modifications. Chest pain resolved throughout admission and Pt discharged in stable condition with the following instructions: You are discharged home. Please see your primary care physician Dr. Nakul Galeano within a week, for follow- up care. Please see Dr. Berman for outpatient stress test. Please resume your home medications of Norvasc 5 mg by mouth daily, and Budesonide/formoterol fumerate 10.2 gm HFA, and start new medication of aspirin 81 mg by mouth daily. Please return to emergency department for worsening of symptoms. . Discharge Exam - Head Exam Head Exam: ATRAUMATIC, NORMAL INSPECTION, NORMOCEPHALIC - Eye Exam Eye Exam: EOMI, Normal appearance - Respiratory Exam Respiratory Exam: NORMAL BREATHING PATTERN, UNREMARKABLE - Cardiovascular Exam Cardiovascular Exam: +S1, +S2. absent: Bradycardia - GI/Abdominal Exam GI & Abdominal Exam: Soft. absent: Tenderness - Exam External exam: absent: Ecchymosis, Erythema - Extremities Exam Extremities exam: normal capillary refill, pedal pulses present - Neurological Exam Neurological exam: Alert, Oriented x3 - Skin Skin Exam: Intact, Normal Color Discharge Plan - Discharge Medications Prescriptions: Aspirin [Aspirin Chewable] 81 mg PO DAILY #14 ctb - Follow Up Plan Condition: STABLE Disposition: HOME/ ROUTINE Instructions: Chest Pain (DC), Chest Pain (GEN) Additional Instructions: You are discharged home. Please see your primary care physician Dr. Nakul Galeano within a week, for follow- up care. Please see Dr. Berman for outpatient stress test. Please resume your home medications of Norvasc 5 mg by mouth daily, and Budesonide/formoterol fumerate 10.2 gm HFA, and start new medication of aspirin 81 mg by mouth daily. Please return to emergency department for worsening of symptoms. Referrals: Issac Galeano MD [Primary Care Provider] - Jerry Scales MD [Staff Provider] - <Kate Maddox - Last Filed: 12/07/16 12:17> Provider - Provider Date of Admission: 12/06/16 05:16 Attending physician: Kate Maddox MD Primary care physician: Issac Galeano MD Hospital Course - Lab Results Lab Results: Most Recent Lab Values WBC 5.4 10^3/ul (4.5-11.0) 12/07/16 07:30 RBC 3.55 10^6/uL (3.5-6.1) 12/07/16 07:30 Hgb 11.9 gm/dL (12.0-16.0) L 12/07/16 07:30 Hct 34.5 % (36.0-48.0) L 12/07/16 07:30 MCV 97.2 fL (80.0-105.0) 12/07/16 07:30 MCH 33.5 pg (25.0-35.0) 12/07/16 07:30 MCHC 34.5 g/dl (31.0-37.0) 12/07/16 07:30 RDW 12.6 % (11.5-14.5) 12/07/16 07:30 Plt Count 192 10^3/uL (120.0-450.0) 12/07/16 07:30 MPV 9.4 fl (7.0-11.0) 12/07/16 07:30 Gran % 49.4 % (50.0-68.0) L 12/07/16 07:30 Lymph % (Auto) 38.7 % (22.0-35.0) H 12/07/16 07:30 Fountain % (Auto) 8.7 % (1.0-6.0) H 12/07/16 07:30 Eos % (Auto) 2.8 % (1.5-5.0) 12/07/16 07:30 Baso % (Auto) 0.4 % (0.0-3.0) 12/07/16 07:30 Gran # 2.69 (1.4-6.5) 12/07/16 07:30 Lymph # 2.1 (1.2-3.4) 12/07/16 07:30 Fountain # 0.5 (0.1-0.6) 12/07/16 07:30 Eos # 0.2 (0.0-0.7) 12/07/16 07:30 Baso # 0.02 K/mm3 (0.0-2.0) 12/07/16 07:30 PT 10.7 Seconds (9.9-11.8) 12/06/16 03:58 INR 0.99 (0.93-1.08) 12/06/16 03:58 APTT 23.4 Seconds (23.7-30.8) L 12/06/16 03:58 Sodium 139 mmol/L (132-148) 12/07/16 07:30 Potassium 4.2 mmol/L (3.6-5.0) 12/07/16 07:30 Chloride 106 mmol/L (98-107) 12/07/16 07:30 Carbon Dioxide 26 mmol/L (21-33) 12/07/16 07:30 Anion Gap 11 (10-20) 12/07/16 07:30 BUN 12 mg/dL (7-21) 12/07/16 07:30 Creatinine 0.7 mg/dL (0.5-1.4) 12/07/16 07:30 Est GFR ( Amer) > 60 12/07/16 07:30 Est GFR (Non-Af Amer) > 60 12/07/16 07:30 Random Glucose 84 mg/dL (70-110) 12/07/16 07:30 Calcium 8.9 mg/dL (8.4-10.5) 12/07/16 07:30 Total Bilirubin 0.6 mg/dL (0.2-1.3) 12/07/16 07:30 AST 36 U/L (15-39) 12/07/16 07:30 ALT 36 U/L (7-56) 12/07/16 07:30 Alkaline Phosphatase 84 U/L (38-133) 12/07/16 07:30 Lactate Dehydrogenase 598 U/L (333-699) 12/06/16 16:40 Total Creatine Kinase 168 U/L (35-230) 12/06/16 16:40 CK-MB (CK-2) 3.7 ng/mL (0.0-3.6) H 12/06/16 03:58 Troponin I 0.05 ng/mL D 12/06/16 16:40 Total Protein 6.8 g/dL (5.8-8.3) 12/07/16 07:30 Albumin 3.5 g/dL (3.0-4.8) 12/07/16 07:30 Globulin 3.3 gm/dL 12/07/16 07:30 Albumin/Globulin Ratio 1.1 (1.1-1.8) 12/07/16 07:30 Urine Opiates Screen Negative (NEGATIVE) 12/06/16 18:30 Urine Methadone Screen Negative (NEGATIVE) 12/06/16 18:30 Ur Barbiturates Screen Negative (NEGATIVE) 12/06/16 18:30 Ur Phencyclidine Scrn Negative (NEGATIVE) 12/06/16 18:30 Ur Amphetamines Screen Negative (NEGATIVE) 12/06/16 18:30 U Benzodiazepines Scrn Negative (NEGATIVE) 12/06/16 18:30 U Oth Cocaine Metabols Negative (NEGATIVE) 12/06/16 18:30 U Cannabinoids Screen Negative (NEGATIVE) 12/06/16 18:30 Alcohol, Quantitative 144 mg/dL (0-10) H 12/06/16 03:58 Attending/Attestation - Attestation I have personally seen and examined this patient.: Yes I have fully participated in the care of the patient.: Yes I have reviewed all pertinent clinical information, including history, physical exam and plan: Yes Notes (Text): 12/07/16 12:14 51 year old female with past medical history of hypertension, alcohol and substance abuse who presented with complaint of reproducible chest pain. She was recently admitted and discharged with similar complaint one week prior. She was admitted to telemetry unit for observation. Serial cardiac enzymes were obtained which were stable. Her chest pain resolved. She was seen by cardiology who recommended outpatient stress test and echo. She was counselled on alcohol abstinence. She was counselled on risks of continued substance abuse. Patient is discharged home today to follow up with her pmd. Follow up with cardiology for outpatient stress test. Kate Maddox MD Hospitalist.
[2016-12-07 12:57] VITALS: BP 150/92; PULSE 87; RESP 18; TEMP 98.2
--- NOTE | 2016-12-08 07:11 | CON ---
DATE: 12/07/[address] Scales. REASON FOR CONSULTATION: Chest pain, cardiac evaluation. BRIEF CLINICAL HISTORY: A 51-year-old -[place] female with past medical history of hypertens ion, bronchitis, was admitted because of a complaint of chest pain with tenderness. The patient is a very poor historian. She has a sharp chest pain with tenderness and increases on movement and incre ases on touching. PAST MEDICAL HISTORY: Significant for hypertension, history of recent bronchitis. ALLERGIES: No known drug allergy. CURRENT MEDICATIONS: The patient at home was taking Symbicort, amlodipine and aspirin, being followe d by Dr. Gerald Adam. ALLERGIES: No known drug allergy. SOCIAL HISTORY: Smokes half a pack a day. Moderate ETOH abuse. FAMILY HISTORY: Nonsignificant. REVIEW OF SYSTEMS: 14 point review of systems as per HPI. PHYSICAL EXAMINATION: VITAL SIGNS: Temperature afebrile, heart rate ____, blood pressure 138/90. HEENT: PERRLA. Extraocular muscles intact. NECK: Supple. No carotid bruits or thyromegaly. CHEST: Clear to auscultation. HEART: S1, S2 regular. ABDOMEN: Soft. EXTREMITIES: Clubbing and cyanosis negative. BLOOD WORKUP: As follows: WBC 5.4, hemoglobin 11.9, hematocrit 34.5, platelet count 192. Chemistry shows sodium 139, potassium 4.2, chloride 106, carbon dioxide 26, anion gap of 11, BUN 12, creatinin e 0.7. Troponin 0.05, 0.04, 0.05, indeterminant range. The patient admitted before and the troponin was the same range on 11/26/2016. RECOMMENDATION: Atypical chest pain, no evidence of acute myocardial infarction, but given the multi ple risk factors, age, multiple Emergency Room visits and active tobacco abuse, suggest echo and a st ress test as outpatient. I explained to the patient that the patient needs a stress test and complia nce with the medication. Also discussed with the team, Dr. Maddox and the team taking care of the [facility] ient that will reschedule the stress in 1-2 weeks. Will transfer the care Thursday to Dr. Yordy davenport nd also ____ stress test. We will discuss with you. Thank you, Dr. Maddox, for providing the opportunity in taking care of the patient. Mary Ann Lion MD cc: [id number] TT: 12/08/2016 07:11:25 Confirmation # [id number] Dictation # [id number] mn
== END 2016-12-07 14:19 | disposition home or self-care (01) ==
LOC: ED 02:42 → ERH 05:16 → 2RNO 06:53
PROVIDERS: ADMIT Hospitalist; ATTEND Internal Medicine
DX: R07.89 Other chest pain (principal); I10 Essential (primary) hypertension; J40 Bronchitis, not specified as acute or chronic; F10.129 Alcohol abuse with intoxication, unspecified; F17.210 Nicotine dependence, cigarettes, uncomplicated; E66.9 Obesity, unspecified; F14.10 Cocaine abuse, uncomplicated; Y90.6 Blood alcohol level of 120-199 mg/100 ml; Z68.34 Body mass index [BMI] 34.0-34.9, adult
CPT/HCPCS: 36415; 71010; 80053; 82550; 82553; 83615; 84484; 85025; 85610; 85730; 93005; 99285; G0378; G0480

== ENCOUNTER 2016-12-12 03:15 | Observation (INO) | payer MEDICARE, OTHER ==
[2016-12-12 03:26] VITALS: BMI 36.0
--- NOTE | 2016-12-12 03:35 | ED PDOC ---
Arrival/HPI - General Chief Complaint: Chest Pain Time Seen by Provider: 12/12/16 03:16 - History of Present Illness Narrative History of Present Illness (Text): 12/12/16 03:34 Patient is a 51 y/o F with HTN, tobacco and cocaine use, with multiple ED visits for chest pain, presenting with chest pain. Patient reports that she was sitting down when she had the acute onset of midsternal chest pain, described as sharp pain. No associated symptoms. No exacerbating or remitting factors. Admits to alcohol use tonight. Patient was admitted to hospital for chest pain 5 days ago and was instructed to follow-up with Dr. Jalloh for outpatient stress test. 12/12/16 05:45 Past Medical History - Infectious Disease Hx of Infectious Diseases: None - Reproductive Menopause: Yes - Cardiac Hx Cardiac Disorders: Yes Hx Hypertension: Yes - Pulmonary Hx Respiratory Disorders: Yes Hx Bronchitis: Yes - Neurological Hx Neurological Disorder: No - HEENT Hx HEENT Disorder: No - Renal Hx Renal Disorder: No - Endocrine/Metabolic Hx Endocrine Disorders: No - Hematological/Oncological Hx Blood Disorders: No - Integumentary Hx Dermatological Disorder: No - Musculoskeletal/Rheumatological Hx Falls: Yes - Gastrointestinal Hx Gastrointestinal Disorders: No - Genitourinary/Gynecological Hx Genitourinary Disorders: No - Psychiatric Hx Psychophysiologic Disorder: Yes Hx Anxiety: Yes Hx Depression: Yes Hx Substance Use: Yes (H/O COCAINE AUBE STAES CLEAN FOR 18 YRS.) Other/Comment: EtOH abuse, marijuana use, cocaine abuse - Surgical History Other/Comment: Tubal ligation - Anesthesia Hx Anesthesia: No Family/Social History Family/Social History: No Known Family HX Smoking Status: Current Some Days Smoker Hx Alcohol Use: Yes (.) Frequency of alcohol use: Socially Hx Substance Use: Yes (H/O COCAINE AUBE STAES CLEAN FOR 18 YRS.) Allergies/Home Meds Allergies/Adverse Reactions: Allergies No Known Allergies Allergy (Verified 12/12/16 03:28) Home Medications: Home Meds Medication Instructions Recorded Confirmed Unobtainable 12/12/16 12/12/16 Review of Systems - Review of Systems Constitutional: absent: Fatigue, Weight Change, Fevers Eyes: absent: Vision Changes ENT: absent: Hearing Changes Respiratory: absent: SOB, Cough, Sputum, Wheezing Cardiovascular: Chest Pain. absent: Palpitations, Edema, Calf Pain, AU, Orthopnea Gastrointestinal: absent: Abdominal Pain, Constipation, Diarrhea, Nausea, Vomiting Genitourinary Female: absent: Dysuria Musculoskeletal: absent: Arthralgias Skin: absent: Rash Neurological: absent: Headache Physical Exam Vital Signs Temp Pulse Pulse Resp BP BP Pulse Ox 12/12/16 05:29 67 19 145/83 96 12/12/16 04:00 67 145/83 12/12/16 03:25 97.5 F L 62 18 145/91 H 100 Temperature: Afebrile Blood Pressure: Normal Respiratory Rate: Normal Appearance: Positive for: Well-Appearing, Non-Toxic, Comfortable Pain Distress: None Mental Status: Positive for: Alert and Oriented X 3 - Systems Exam Head: Present: Atraumatic, Normocephalic Pupils: Present: PERRL Neck: Present: Normal Range of Motion Respiratory/Chest: Present: Clear to Auscultation, Good Air Exchange. No: Respiratory Distress Cardiovascular: Present: Regular Rate and Rhythm, Normal S1, S2. No: Murmurs Abdomen: No: Tenderness, Distention, Rebound, Guarding Upper Extremity: Present: Normal Inspection Lower Extremity: Present: Normal Inspection Neurological: Present: GCS=15, CN II-XII Intact Medical Decision Making ED Course and Treatment: 12/12/16 03:35 EKG shows NSR at 69bpm with non specific ST changes, grossly unchangd from prior 1 week ago 12/12/16 05:42 Cxray negative. Trop x 1 negative. Patient had recent admission with negative serial troponins and was supposed to schedule outpatient stress test. Will get second troponin and speak to her retail representative Dr. Jalloh about scheduling outpatient stress. 12/12/16 07:[address] Jalloh and he recommends evaluation by dermatological surgeon retail representative. Will transfer to tele observation for further eval. Spoke to Dr. Haskins who is aware - Lab Interpretations Lab Results: 12/12/16 04:00 12/12/16 04:00 Lab Results 12/12/16 04:00: Sodium 142, Potassium 3.6, Chloride 105, Carbon Dioxide 28, Anion Gap 13, BUN 14, Creatinine 0.7, Est GFR ( Amer) > 60, Est GFR (Non- Af Amer) > 60, Random Glucose 90, Calcium 9.1, Total Bilirubin 0.5, AST 57 H, ALT 39, Alkaline Phosphatase 87, Lactate Dehydrogenase 800 H, Total Creatine Kinase 744 H, CK-MB (CK-2) Pending, CK-MB (CK-2) % Pending, Troponin I 0.05, Total Protein 7.7, Albumin 4.1, Globulin 3.6, Albumin/Globulin Ratio 1.1 12/12/16 04:00: WBC 5.2, RBC 3.77, Hgb 12.9, Hct 36.7, MCV 97.3, MCH 34.2, MCHC 35.1, RDW 12.1, Plt Count 238, MPV 9.6, Gran % 46.4 L, Lymph % (Auto) 43.1 H, [place] % (Auto) 7.0 H, Eos % (Auto) 2.9, Baso % (Auto) 0.6, Gran # 2.39, Lymph # 2.2, [place] # 0.4, Eos # 0.2, Baso # 0.03 - RAD Interpretation Radiology Orders: 12/12/16 03:32 CHEST PORTABLE [RAD] Stat - Medication Orders Current Medication Orders: Discontinued Medications Aspirin (Aspirin Chewable) 324 mg PO STAT STA Stop: 12/12/16 03:48 Last Admin: 12/12/16 04:10 Dose: 324 mg ED OBSERVATION Date of observation admission: 12/12/16 Time of observation admission: 05:43 - Observation admission statement Patient is being placed in observation because:: chest pain with multiple risk factors - Goals of Observation Goals of observation are:: cardiac monitoring, serial troponins Disposition/Present on Arrival - Present on Arrival Any Indicators Present on Arrival: No History of DVT/PE: No History of Uncontrolled Diabetes: No Urinary Catheter: No History of Decub. Ulcer: No History Surgical Site Infection Following: None - Disposition Have Diagnosis and Disposition been Completed?: Yes Diagnosis: Chest pain Disposition Time: 05:43 Patient Problems: Current Active Problems Problem Status Onset Chest pain Acute Condition: FAIR
[2016-12-12 04:02] LABS: ADD MANUAL DIFF? NO
[2016-12-12 04:45] LABS: ALB/GLOB RATIO 1.1 (1.1-1.8); ALKALINE PHOSPHATASE 87 U/L (38-133); ALT/SGPT 39 U/L (7-56); AST/SGOT 57 U/L (15-39); BILIRUBIN,TOTAL 0.5 mg/dL (0.2-1.3); BLOOD UREA NITROGEN 14 mg/dL (7-21); CALCIUM 9.1 mg/dL (8.4-10.5); CARBON DIOXIDE 28 mmol/L (21-33); CHLORIDE 105 mmol/L (98-107); GFR AFRICAN-AMERICAN > 60; GLUCOSE,RANDOM 90 mg/dL (70-110); POTASSIUM 3.6 mmol/L (3.6-5.0); SODIUM 142 mmol/L (132-148); TOTAL PROTEIN 7.7 g/dL (5.8-8.3)
[2016-12-12 04:56] LABS: TROPONIN I 0.05 ng/mL
[2016-12-12 05:05] LABS: HEMATOCRIT 36.7 % (36.0-48.0); MEAN CELL VOLUME 97.3 fL (80.0-105.0); MEAN CORPUSCULAR HEMOGLOBIN 34.2 pg (25.0-35.0); MEAN CORPUSCULAR HGB CONC 35.1 g/dl (31.0-37.0); MEAN PLATELET VOLUME 9.6 fl (7.0-11.0); PLATELET COUNT 238 10^3/uL (120.0-450.0); RED CELL DISTRIBUTION WIDTH 12.1 % (11.5-14.5); WHITE BLOOD COUNT 5.2 10^3/ul (4.5-11.0)
[2016-12-12 05:06] LABS: BASO # 0.03 K/mm3 (0.0-2.0); BASO % 0.6 % (0.0-3.0); EOS # 0.2 (0.0-0.7); EOS % 2.9 % (1.5-5.0); GRAN # 2.39 (1.4-6.5); GRAN % 46.4 % (50.0-68.0); LYMPH # 2.2 (1.2-3.4); LYMPH % 43.1 % (22.0-35.0); MONO # 0.4 (0.1-0.6)
--- NOTE | 2016-12-12 07:42 | CP.PCM.HP ---
<Erica Buckner - Last Filed: 12/12/16 11:47> History of Present Illness - History of Present Illness History of Present Illness: CC: chest pain 51 year old female with past medical history of HTN, ETOH abuse, cocaine abuse, tobacco abuse presented to hospital for chest pain. Pain began at 2 am while she was at her sister's house sitting on couch. Pain is located in center of chest/epigastric area. Pain feels like a sharp sensation and does not radiate anywhere else. She denies having any other symptoms with the chest pain. Pain was constant and began all of a sudden. Pain is reproducible with palpation. Patient states that she drank 1 beer earlier that night. Although on previous hospital visit patient had positive UDS for cocaine, she states that she has not used cocaine in over 13 years. Patient presented to hospital about 5 days ago for a similar chest pain. At that time, she was told to follow up outpatient with community marketing coordinator, Dr. Scales for stress test which she did not do. At this time, patient denies having any SOB, abd pain, N/V/D/C, fevers, chills. She states she still has slight CP in center of chest. PMHx: stated above Sx:denies Meds: Patient does not know name of medications. On previous records it is noted that she asked to take the following medications: Norvasc 5 mg po qd, symbicort and aspirin. Patient's pharmacy is [facility] in [place] Social: 5 cigs/day x 35 yrs, drinks ETOH occasionally, cocaine abuse. PMD: Dr. Galeano Present on Admission - Present on Admission Any Indicators Present on Admission: No Past Patient History - Infectious Disease Hx of Infectious Diseases: None - Past Social History Smoking Status: Current Some Days Smoker Chewing Tobacco Use: No Cigar Use: No Alcohol: Occasional Drugs: Cocaine - CARDIAC Hx Cardiac Disorders: Yes Hx Hypertension: Yes - PULMONARY Hx Respiratory Disorders: Yes Hx Bronchitis: Yes - NEUROLOGICAL Hx Neurological Disorder: No - HEENT Hx HEENT Problems: No - RENAL Hx Chronic Kidney Disease: No - ENDOCRINE/METABOLIC Hx Endocrine Disorders: No - HEMATOLOGICAL/ONCOLOGICAL Hx Blood Disorders: No - INTEGUMENTARY Hx Dermatological Problems: No - MUSCULOSKELETAL/RHEUMATOLOGICAL Hx Falls: Yes - GASTROINTESTINAL Hx Gastrointestinal Disorders: No - GENITOURINARY/GYNECOLOGICAL Hx Genitourinary Disorders: No - PSYCHIATRIC Hx Psychophysiologic Disorder: Yes Hx Anxiety: Yes Hx Depression: Yes Hx Substance Use: Yes (H/O COCAINE AUBE STAES CLEAN FOR 18 YRS.) Other/Comment: EtOH abuse, marijuana use, cocaine abuse - SURGICAL HISTORY Other/Comment: Tubal ligation - ANESTHESIA Hx Anesthesia: No Meds Allergies/Adverse Reactions: Allergies Allergy/AdvReac Type Severity Reaction Status Date / Time No Known Allergies Allergy Verified 12/12/16 03:28 Physical Exam - Constitutional Appears: Non-toxic, No Acute Distress - Head Exam Head Exam: ATRAUMATIC - Eye Exam Eye Exam: EOMI - ENT Exam ENT Exam: Mucous Membranes Moist - Respiratory Exam Respiratory Exam: Clear to Auscultation Bilateral, NORMAL BREATHING PATTERN. absent: Rales, Rhonchi, Wheezes - Cardiovascular Exam Cardiovascular Exam: REGULAR RHYTHM, +S1, +S2. absent: Diastolic murmur, Gallop , Rubs, Systolic Murmur - GI/Abdominal Exam GI & Abdominal Exam: Normal Bowel Sounds, Soft. absent: Distended, Firm, Guarding, Rigid, Tenderness - Extremities Exam Extremities exam: Negative for: pedal edema, tenderness - Neurological Exam Neurological exam: Alert, Oriented x3 - Psychiatric Exam Psychiatric exam: Normal Affect, Normal Mood - Skin Skin Exam: Dry, Intact, Normal Color, Warm Results - Vital Signs Recent Vital Signs: Last Vital Signs Temp 97.5 F L 12/12/16 03:25 Pulse 67 12/12/16 05:29 Resp 19 12/12/16 05:29 BP 145/83 12/12/16 05:29 Pulse Ox 96 12/12/16 05:29 - Labs Result Diagrams: 12/12/16 04:00 12/12/16 04:00 Assessment & Plan - Assessment and Plan (Free Text) Assessment: 51 year old female with past medical history of HTN, polysubstance abuse is admitted for CP r/o ACS. Initial troponin is .05 which is unchanged from previous admission. EKG shows NSR and unchanged form previous admission. CXR is negative. 1. CP r/o ACS - Cardiology, Dr. Tan is consulted - Aspirin 81 mg po qd - Will check serial trops and ekg - Lipid panel check 1 week ago which showed elevated TG 209 - TSH normal on last admission 2. HTN - Will continue home medications: Norvasc 3. ETOH - CIWA protocol - fall precaution 4. Polysubstance abuse - Will get UDS - Previous UDS is positive for cocaine, but patient denied using drugs Prophylaxis - protonix - lovenox, SCDs Case discussed with attending, Dr. Haskins - Date & Time Date: 12/12/16 Time: 07:44 <Esther Haskins - Last Filed: 12/12/16 17:59> Results - Vital Signs Recent Vital Signs: Last Vital Signs Temp 97.7 F 12/12/16 12:54 Pulse 95 H 12/12/16 14:00 Resp 20 12/12/16 12:54 BP 133/66 12/12/16 13:03 Pulse Ox 95 12/12/16 10:05 - Labs Result Diagrams: 12/12/16 04:00 12/12/16 04:00 Labs: Laboratory Results - last 24 hr 12/12/16 12/12/16 12/12/16 08:00 08:20 08:20 PT 10.9 INR 1.01 APTT 25.7 Troponin I Urine Opiates Screen Negative Urine Methadone Screen Negative Ur Barbiturates Screen Negative Ur Phencyclidine Scrn Negative Ur Amphetamines Screen Negative U Benzodiazepines Scrn Negative U Oth Cocaine Metabols Positive H U Cannabinoids Screen Negative Alcohol, Quantitative 145 H 12/12/16 12/12/16 14:19 16:35 PT INR APTT Troponin I 0.04 0.04 Urine Opiates Screen Urine Methadone Screen Ur Barbiturates Screen Ur Phencyclidine Scrn Ur Amphetamines Screen U Benzodiazepines Scrn U Oth Cocaine Metabols U Cannabinoids Screen Alcohol, Quantitative Attending/Attestation - Attestation I have personally seen and examined this patient.: Yes I have fully participated in the care of the patient.: Yes I have reviewed all pertinent clinical information: Yes Notes (Text): 12/12/16 17:57 attending note; Patient is a 51-year-old female with a history alcohol abuse, cocaine abuse, smoking is admitted with atypical chest pain. Cardiac enzymes 3 ordered. Patient was recently discharged from the hospital for the same complaints. The patient does not follow up with PMD regulary. cardiology evaluation requested. Advised to stop smoking. Alcohol cessation/drug abuse cessation is strongly recommended. Upon discharge the patient will follow-up with PMD Dr. Orantes.
[2016-12-12] MEDS ORDERED: Sodium Chloride 0.9% 1,000 ML IV SCH (08:00)
--- NOTE | 2016-12-12 08:27 | RAD ---
HISTORY: Chest pain COMPARISON: 12/06/2016 FINDINGS: LUNGS: The lungs are clear. PLEURA: No significant pleural effusion identified, no pneumothorax apparent. CARDIOVASCULAR: Normal. OSSEOUS STRUCTURES: No significant abnormalities. VISUALIZED UPPER ABDOMEN: Normal. OTHER FINDINGS: None. IMPRESSION: No active pulmonary disease.
[2016-12-12 08:34] VITALS: TEMP 97.7
[2016-12-12 09:00] LABS: INR 1.01 (0.93-1.08); PARTIAL THROMBOPLASTIN TIME 25.7 Seconds (23.7-30.8)
[2016-12-12] MEDS ORDERED: Pantoprazole 40 mg EC Tab PO SCH (10:00)
[2016-12-12 10:05] VITALS: BP 133/66; RESP 20; O2SAT 95
[2016-12-12] MEDS: Enoxaparin 40 mg Syringe SC SCH ×2 (10:29→13:04)
[2016-12-12] MEDS: Multivitamin With Minerals Tab PO SCH ×2 (10:30→13:03)
--- NOTE | 2016-12-12 11:28 | CON ---
DATE: 12/12/2016 HISTORY OF PRESENT ILLNESS: The patient is a 51-year-old woman with multiple admissions for focal ch est discomfort. The patient signed out multiple times. She has threatened to sign out again. PAST MEDICAL HISTORY: Includes smoking, cocaine abuse, alcoholism although she denies all three. She does admit to smoking. Her focal chest pain is persistent and unchanged. The rest of her history is unreliable. The patient is not interested in giving a history. PHYSICAL EXAMINATION: VITAL SIGNS: Blood pressure 133/66, the heart rate is in the 70s. NECK: Negative JVD. LUNGS: Without rales. HEART: With S1, S2. EXTREMITIES: Without edema. LABORATORIES: Troponin 0.04 and 0.05, which is unchanged from all her previous admissions. The creatinine is , which is persistently elevated. The hemoglobin is 12.9. IMPRESSION: 1. Atypical chest pain. 2. No evidence for acute coronary syndrome. 3. Alcohol abuse. 4. Drug abuse. 5. Chronic obstructive pulmonary disease. 6. Active smoker. Given these findings, we will put the patient on medical therapy as you have which included aspirin, nicotine patch and Norvasc for blood pressure. We will not order cardiac testing unless the patient is willing to receive medical care. I have disc ussed with the patient about the need to stop her drug abuse and alcoholism, but she denies ever usin g it despite her positive toxicology. Zachery Tan MD cc: [phone] TT: 12/12/2016 11:27:50 Confirmation # [id number] Dictation # [id number]
[2016-12-12] MEDS: Alum-Mag Hydrox-Simethicone Susp (30 mL) PO SCH ×2 (12:07→13:04)
[2016-12-12] MEDS ORDERED: Pneumococcal 23-Valent Vaccine IM ONE (13:12)
[2016-12-12 15:26] VITALS: PULSE 95
--- NOTE | 2016-12-12 18:50 | CARD ---
APPROVED REPORT EKG Measurement Heart [id number] [place] 160P47 [id number] <Conclusion> Normal sinus rhythm Nonspecific T wave abnormality Prolonged QT Abnormal ECG
--- NOTE | 2016-12-12 19:04 | CARD ---
APPROVED REPORT EKG Measurement Heart [id number] [place] 164P50 [id number] <Conclusion> Normal sinus rhythm Nonspecific T wave abnormality Prolonged QT Abnormal ECG
--- NOTE | 2016-12-13 14:39 | CP.PCM.DIS ---
Provider - Provider Date of Admission: 12/12/16 07:02 Attending physician: Esther Haskins MD Primary care physician: Issac Galeano MD Time Spent in preparation of Discharge (in minutes): 35 Hospital Course - Lab Results Lab Results: Most Recent Lab Values WBC 5.2 10^3/ul (4.5-11.0) 12/12/16 04:00 RBC 3.77 10^6/uL (3.5-6.1) 12/12/16 04:00 Hgb 12.9 gm/dL (12.0-16.0) 12/12/16 04:00 Hct 36.7 % (36.0-48.0) 12/12/16 04:00 MCV 97.3 fL (80.0-105.0) 12/12/16 04:00 MCH 34.2 pg (25.0-35.0) 12/12/16 04:00 MCHC 35.1 g/dl (31.0-37.0) 12/12/16 04:00 RDW 12.1 % (11.5-14.5) 12/12/16 04:00 Plt Count 238 10^3/uL (120.0-450.0) 12/12/16 04:00 MPV 9.6 fl (7.0-11.0) 12/12/16 04:00 Gran % 46.4 % (50.0-68.0) L 12/12/16 04:00 Lymph % (Auto) 43.1 % (22.0-35.0) H 12/12/16 04:00 [place] % (Auto) 7.0 % (1.0-6.0) H 12/12/16 04:00 Eos % (Auto) 2.9 % (1.5-5.0) 12/12/16 04:00 Baso % (Auto) 0.6 % (0.0-3.0) 12/12/16 04:00 Gran # 2.39 (1.4-6.5) 12/12/16 04:00 Lymph # 2.2 (1.2-3.4) 12/12/16 04:00 [place] # 0.4 (0.1-0.6) 12/12/16 04:00 Eos # 0.2 (0.0-0.7) 12/12/16 04:00 Baso # 0.03 K/mm3 (0.0-2.0) 12/12/16 04:00 PT 10.9 Seconds (9.9-11.8) 12/12/16 08:20 INR 1.01 (0.93-1.08) 12/12/16 08:20 APTT 25.7 Seconds (23.7-30.8) 12/12/16 08:20 Sodium 142 mmol/L (132-148) 12/12/16 04:00 Potassium 3.6 mmol/L (3.6-5.0) 12/12/16 04:00 Chloride 105 mmol/L (98-107) 12/12/16 04:00 Carbon Dioxide 28 mmol/L (21-33) 12/12/16 04:00 Anion Gap 13 (10-20) 12/12/16 04:00 BUN 14 mg/dL (7-21) 12/12/16 04:00 Creatinine 0.7 mg/dL (0.5-1.4) 12/12/16 04:00 Est GFR ( Amer) > 60 12/12/16 04:00 Est GFR (Non-Af Amer) > 60 12/12/16 04:00 Random Glucose 90 mg/dL (70-110) 12/12/16 04:00 Calcium 9.1 mg/dL (8.4-10.5) 12/12/16 04:00 Total Bilirubin 0.5 mg/dL (0.2-1.3) 12/12/16 04:00 AST 57 U/L (15-39) H 12/12/16 04:00 ALT 39 U/L (7-56) 12/12/16 04:00 Alkaline Phosphatase 87 U/L (38-133) 12/12/16 04:00 Lactate Dehydrogenase 800 U/L (333-699) H 12/12/16 04:00 Total Creatine Kinase 744 U/L (35-230) H 12/12/16 04:00 CK-MB (CK-2) 6.0 ng/mL (0.0-3.6) H 12/12/16 04:00 CK-MB (CK-2) % 0.8 % (2.5-3.0) L 12/12/16 04:00 Troponin I 0.04 ng/mL 12/12/16 16:35 Total Protein 7.7 g/dL (5.8-8.3) 12/12/16 04:00 Albumin 4.1 g/dL (3.0-4.8) 12/12/16 04:00 Globulin 3.6 gm/dL 12/12/16 04:00 Albumin/Globulin Ratio 1.1 (1.1-1.8) 12/12/16 04:00 Urine Opiates Screen Negative (NEGATIVE) 12/12/16 08:00 Urine Methadone Screen Negative (NEGATIVE) 12/12/16 08:00 Ur Barbiturates Screen Negative (NEGATIVE) 12/12/16 08:00 Ur Phencyclidine Scrn Negative (NEGATIVE) 12/12/16 08:00 Ur Amphetamines Screen Negative (NEGATIVE) 12/12/16 08:00 U Benzodiazepines Scrn Negative (NEGATIVE) 12/12/16 08:00 U Oth Cocaine Metabols Positive (NEGATIVE) H 12/12/16 08:00 U Cannabinoids Screen Negative (NEGATIVE) 12/12/16 08:00 Alcohol, Quantitative 145 mg/dL (0-10) H 12/12/16 08:20 - Hospital Course Hospital Course: discharge summary for 12/12/16. attending note; Patient was admitted to telemetry floor for atypical chest pain. Cardiac enzymes 3 negative. Cardiology evaluation with Dr. Tan appreciated. Chronic smoking; smoking cessation is strongly advised. Alcohol abuse; alcohol cessation is strongly advised. Active cocaine use; drug abuse cessation is strongly advised. Patient denied any chest pain. Tolerating diet well. Ambulating fine. Will be discharged home today. Follow-up with PMD Dr. Fregoso. Diagnosis; Atypical chest pain Active smoking Alcohol abuse Cocaine abuse Discharge Exam - Head Exam Head Exam: ATRAUMATIC - Eye Exam Eye Exam: Normal appearance - ENT Exam ENT Exam: Mucous Membranes Moist - Respiratory Exam Respiratory Exam: NORMAL BREATHING PATTERN - Cardiovascular Exam Cardiovascular Exam: REGULAR RHYTHM - GI/Abdominal Exam GI & Abdominal Exam: Normal Bowel Sounds, Soft. absent: Rebound, Rigid, Tenderness - Back Exam Back exam: absent: CVA tenderness (L), CVA tenderness (R) - Neurological Exam Neurological exam: Alert - Psychiatric Exam Psychiatric exam: Normal Affect - Skin Skin Exam: Normal Color Discharge Plan - Discharge Medications Prescriptions: Aspirin [Ecotrin] 81 mg PO DAILY #30 amLODIPine [Norvasc] 5 mg PO DAILY #30 tab Pantoprazole [Protonix EC Tab] 40 mg PO DAILY #30 ect Multimineral/Multivitamin [Therapeutic-M Tab] 1 tab PO DAILY #30 tab - Follow Up Plan Condition: FAIR Disposition: HOME/ ROUTINE Instructions: Angina (DC), Chest Pain (DC) Additional Instructions: 1. Follow up with PMD . 2. Stop smoking. 3. Stop alcohol abuse. 4. stop cocaine abuse. 5. Follow up with cardiology as per PMD. Referrals: Issac Galeano MD [Primary Care Provider] -
== END 2016-12-12 17:32 | disposition home or self-care (01) ==
LOC: ED 03:15 → EROBSV 05:43 → INTOOBSV 05:43 → UNDOADMOB 05:43 → OBSVTOIN 05:43 → 2RNO 07:02 → EROBSV 07:23 → ERH 07:23 → 2RNO 09:02
PROVIDERS: ADMIT Internal Medicine; ATTEND Internal Medicine
DX: R07.9 Chest pain, unspecified (principal); I10 Essential (primary) hypertension; F17.200 Nicotine dependence, unspecified, uncomplicated; F14.10 Cocaine abuse, uncomplicated; J44.9 Chronic obstructive pulmonary disease, unspecified
CPT/HCPCS: 71010; 80053; 82550; 82553; 83615; 84484; 85025; 85610; 85730; 93005; 99283; G0378; G0480; J7040

== ENCOUNTER 2016-12-19 03:52 | Emergency (ER) | payer MEDICARE, OTHER ==
[2016-12-19 03:53] VITALS: BMI 36.0
--- NOTE | 2016-12-19 04:19 | ED PDOC ---
Arrival/HPI - General Chief Complaint: Chest Pain Time Seen by Provider: 12/19/16 03:54 - History of Present Illness Narrative History of Present Illness (Text): 51F c/o non-exertional non-radiating anterior chest pain constant for the past week. no exac or reliev fx. no assoc sob, nausea, or diaphoresis. chronic cough. pt admits to etoh use, last use this evening. she denies any illicit drug use. Past Medical History - Infectious Disease Hx of Infectious Diseases: None - Cardiac Hx Cardiac Disorders: Yes Hx Hypertension: Yes Hx Peripheral Edema: Yes (ble +1 pitting) Other/Comment: hypotension - Pulmonary Hx Respiratory Disorders: Yes Hx Bronchitis: Yes - Neurological Hx Neurological Disorder: No - HEENT Hx HEENT Disorder: No - Renal Hx Renal Disorder: No - Endocrine/Metabolic Hx Endocrine Disorders: No - Hematological/Oncological Hx Blood Disorders: No - Integumentary Hx Dermatological Disorder: No Other/Comment: scar from scrape to r shoulder from fall last month, pt bruised r eye but it has healed - Musculoskeletal/Rheumatological Hx Falls: Yes (last month) Hx Unsteady Gait: Yes - Gastrointestinal Hx Gastrointestinal Disorders: No - Genitourinary/Gynecological Hx Genitourinary Disorders: No - Psychiatric Hx Psychophysiologic Disorder: Yes Hx Anxiety: Yes Hx Depression: Yes Hx Substance Use: Yes (clean 18 yrs as per pt cocaine) Other/Comment: EtOH abuse, marijuana use, cocaine abuse - Surgical History Other/Comment: Tubal ligation - Anesthesia Hx Anesthesia: No Family/Social History Family/Social History: Other (nc) Smoking Status: Light Smoker < 10 Cigarettes Daily Hx Alcohol Use: Yes (beer last night) Hx Substance Use: Yes (clean 18 yrs as per pt cocaine) Allergies/Home Meds Allergies/Adverse Reactions: Allergies No Known Allergies Allergy (Verified 12/12/16 03:28) Home Medications: Home Meds Medication Instructions Recorded Confirmed Budesonide/Formoterol Fumarate 2 puff IH DAILY 12/12/16 12/12/16 [Symbicort] amLODIPine [Norvasc] 5 mg PO DAILY 12/12/16 12/12/16 Review of Systems - Review of Systems Constitutional: absent: Fatigue, Fevers Respiratory: Cough. absent: SOB Cardiovascular: Chest Pain. absent: Syncope Gastrointestinal: absent: Abdominal Pain, Nausea, Vomiting Neurological: absent: Headache, Focal Weakness, Speech Changes Physical Exam Vital Signs Temp Pulse Resp BP Pulse Ox 12/19/16 06:00 98.7 F 63 16 123/81 100 12/19/16 04:40 98.7 F 96 H 16 128/78 98 Temperature: Afebrile Blood Pressure: Normal Pulse: Regular Respiratory Rate: Normal Appearance: Positive for: Well-Appearing, Non-Toxic, Comfortable Mental Status: Positive for: Alert and Oriented X 3 - Systems Exam Head: Present: Atraumatic Pupils: Present: PERRL Mouth: Present: Moist Mucous Membranes Respiratory/Chest: Present: Clear to Auscultation. No: Respiratory Distress, Accessory Muscle Use Cardiovascular: Present: Regular Rate and Rhythm Abdomen: No: Tenderness, Distention Upper Extremity: Present: NORMAL PULSES. No: Edema Neurological: Present: GCS=15, Motor Func Grossly Intact, Normal Sensory Function, Gait Normal, Other (no focal deficits) Skin: Present: Warm, Dry Psychiatric: Present: Alert, Oriented x 3 Medical Decision Making ED Course and Treatment: 12/19/16 04:18 EKG interpreted by me: NSR @ 67 bpm. Normal axis. No STEMI. No change from previous. cxr- nad pt w multiple recent admissions for same complaint ecg without sig change and trop neg after week of constant pain pt to f/u w her pcp on thursday return if worse - Lab Interpretations Lab Results: 12/19/16 05:20 12/19/16 05:20 Lab Results 12/19/16 05:20: WBC 4.5, RBC 3.71, Hgb 12.8, Hct 36.4, MCV 98.1, MCH 34.5, MCHC 35.2, RDW 12.6, Plt Count 236, MPV 9.3, Neutrophils % (Manual) 39 L, Band Neutrophils % 1, Lymphocytes % (Manual) 50 H, Monocytes % (Manual) 6, Eosinophils % (Manual) 2, Basophils % (Manual) 2 H, Platelet Evaluation Normal 12/19/16 05:20: Sodium 143, Potassium 3.7, Chloride 106, Carbon Dioxide 29, Anion Gap 12, BUN 13, Creatinine 0.6, Est GFR ( Amer) > 60, Est GFR (Non- Af Amer) > 60, Random Glucose 81, Calcium 8.8, Total Bilirubin 0.3, AST 45 H, ALT 35, Alkaline Phosphatase 88, Troponin I 0.06 D, Total Protein 7.5, Albumin 4.0, Globulin 3.5, Albumin/Globulin Ratio 1.1 - RAD Interpretation Radiology Orders: 12/19/16 03:59 CHEST PORTABLE [RAD] Stat Disposition/Present on Arrival - Present on Arrival Any Indicators Present on Arrival: No History of DVT/PE: No History of Uncontrolled Diabetes: No Urinary Catheter: No History of Decub. Ulcer: No History Surgical Site Infection Following: None - Disposition Have Diagnosis and Disposition been Completed?: Yes Diagnosis: Chest pain Disposition: HOME/ ROUTINE Disposition Time: 06:30 Patient Problems: Current Active Problems Problem Status Onset Chest pain Acute Condition: STABLE Discharge Instructions (ExitCare): Chest Pain (ED) Referrals: Issac Galeano MD [Primary Care Provider] - Follow up with primary Jerry Scales MD [Staff Provider] - Follow up with primary
[2016-12-19 04:43] VITALS: RESP 16; TEMP 98.7
[2016-12-19 05:34] LABS: HEMATOCRIT 36.4 % (36.0-48.0); MEAN CELL VOLUME 98.1 fL (80.0-105.0); MEAN CORPUSCULAR HEMOGLOBIN 34.5 pg (25.0-35.0); MEAN CORPUSCULAR HGB CONC 35.2 g/dl (31.0-37.0); MEAN PLATELET VOLUME 9.3 fl (7.0-11.0); PLATELET COUNT 236 10^3/uL (120.0-450.0); RED CELL DISTRIBUTION WIDTH 12.6 % (11.5-14.5); WHITE BLOOD COUNT 4.5 10^3/ul (4.5-11.0)
[2016-12-19 05:35] LABS: ADD MANUAL DIFF? YES
[2016-12-19 05:55] LABS: ALB/GLOB RATIO 1.1 (1.1-1.8); ALKALINE PHOSPHATASE 88 U/L (38-133); ALT/SGPT 35 U/L (7-56); AST/SGOT 45 U/L (15-39); BILIRUBIN,TOTAL 0.3 mg/dL (0.2-1.3); BLOOD UREA NITROGEN 13 mg/dL (7-21); CALCIUM 8.8 mg/dL (8.4-10.5); CARBON DIOXIDE 29 mmol/L (21-33); CHLORIDE 106 mmol/L (98-107); GFR AFRICAN-AMERICAN > 60; GLUCOSE,RANDOM 81 mg/dL (70-110); POTASSIUM 3.7 mmol/L (3.6-5.0); SODIUM 143 mmol/L (132-148); TOTAL PROTEIN 7.5 g/dL (5.8-8.3)
[2016-12-19 06:05] LABS: TROPONIN I 0.06 ng/mL
[2016-12-19 06:09] LABS: BAND 1 % (0-2); BASOPHIL 2 % (0.0-1.0); EOSINOPHIL 2 % (0.0-3.0); NEUTROPHIL 39 % (50.0-70.0); PLATELET ESTIMATE NORMAL (NORMAL)
[2016-12-19 06:12] VITALS: BP 123/81; PULSE 63; O2SAT 100
--- NOTE | 2016-12-19 09:07 | RAD ---
HISTORY: cp COMPARISON: 12/12/2016 FINDINGS: LUNGS: No active pulmonary disease. PLEURA: No significant pleural effusion identified, no pneumothorax apparent. CARDIOVASCULAR: Normal. OSSEOUS STRUCTURES: No significant abnormalities. VISUALIZED UPPER ABDOMEN: Normal. OTHER FINDINGS: None. IMPRESSION: No active disease.
--- NOTE | 2016-12-19 13:51 | CARD ---
APPROVED REPORT EKG Measurement Heart [id number] [place] 160P54 [id number] <Conclusion> Normal sinus rhythm Nonspecific T wave abnormality Prolonged QT
== END 2016-12-19 07:04 | disposition home or self-care (01) ==
LOC: ED 03:52
DX: R07.9 Chest pain, unspecified (principal)

== ENCOUNTER 2017-01-06 01:48 | Emergency (ER) | payer MEDICARE, OTHER ==
[2017-01-06 01:48] VITALS: BMI 36.0
--- NOTE | 2017-01-06 02:03 | ED PDOC ---
Arrival/HPI - General Time Seen by Provider: 01/06/17 01:53 Historian: Patient - History of Present Illness Narrative History of Present Illness (Text): 01/06/17 02:00 Paulette Abdullahi is a 51 year old female, whose past medical history includes Bronchitis, who presents to the emergency department complaining of chest pain and shortness of breath for a few hours. Patient states that she was lying down and sleeping when symptoms began. Patient endorses that she drank wine earlier but has not done any drugs. Patient denies any fever, chills, nausea, vomiting, diarrhea, urinary symptoms, back pain, neck pain, headache, dizziness, or any other complaints. PMD: Dr. Marcano Time/Duration: 1-3 hours Symptom Onset: Gradual Symptom Course: Unchanged Severity Level: Mild Activities at Onset: Rest Context: Home Past Medical History - Provider Review Nursing Documentation Reviewed: Yes - Infectious Disease Hx of Infectious Diseases: None - Cardiac Hx Cardiac Disorders: Yes Hx Hypertension: Yes Hx Peripheral Edema: Yes (ble +1 pitting) Other/Comment: hypotension - Pulmonary Hx Respiratory Disorders: Yes Hx Bronchitis: Yes - Neurological Hx Neurological Disorder: No - HEENT Hx HEENT Disorder: No - Renal Hx Renal Disorder: No - Endocrine/Metabolic Hx Endocrine Disorders: No - Hematological/Oncological Hx Blood Disorders: No - Integumentary Hx Dermatological Disorder: No Other/Comment: scar from scrape to r shoulder from fall last month, pt bruised r eye but it has healed - Musculoskeletal/Rheumatological Hx Falls: Yes (last month) Hx Unsteady Gait: Yes - Gastrointestinal Hx Gastrointestinal Disorders: No - Genitourinary/Gynecological Hx Genitourinary Disorders: No - Psychiatric Hx Psychophysiologic Disorder: Yes Hx Anxiety: Yes Hx Depression: Yes Hx Substance Use: Yes (clean 18 yrs as per pt cocaine) Other/Comment: EtOH abuse, marijuana use, cocaine abuse - Surgical History Other/Comment: Tubal ligation - Anesthesia Hx Anesthesia: No Family/Social History - Physician Review Nursing Documentation Reviewed: Yes Family/Social History: No Known Family HX Smoking Status: Light Smoker < 10 Cigarettes Daily Hx Alcohol Use: Yes (beer last night) Hx Substance Use: Yes (clean 18 yrs as per pt cocaine) Allergies/Home Meds Allergies/Adverse Reactions: Allergies No Known Allergies Allergy (Verified 12/12/16 03:28) Home Medications: Home Meds Medication Instructions Recorded Confirmed Budesonide/Formoterol Fumarate 2 puff IH DAILY 12/12/16 12/12/16 [Symbicort] amLODIPine [Norvasc] 5 mg PO DAILY 12/12/16 12/12/16 Review of Systems - Physician Review All systems were reviewed & negative as marked: Yes - Review of Systems Constitutional: absent: Fevers, Night Sweats Eyes: absent: Vision Changes ENT: absent: Hearing Changes Respiratory: SOB Cardiovascular: Chest Pain Gastrointestinal: absent: Abdominal Pain, Nausea, Vomiting Genitourinary Female: absent: Dysuria, Urine Output Changes Musculoskeletal: absent: Arthralgias Skin: absent: Rash Neurological: absent: Headache Endocrine: absent: Diaphoresis Hemo/Lymphatic: absent: Adenopathy Psychiatric: absent: Anxiety Physical Exam Vital Signs Temp Pulse Resp BP Pulse Ox 01/06/17 06:59 73 19 132/73 98 01/06/17 06:12 83 18 130/75 97 01/06/17 04:28 87 18 126/71 96 01/06/17 01:48 98.1 F 94 H 16 137/72 97 - Systems Exam Head: Present: Atraumatic, Normocephalic Pupils: Present: PERRL Extroacular Muscles: Present: EOMI Conjunctiva: Present: Normal Mouth: Present: Moist Mucous Membranes Neck: Present: Normal Range of Motion Respiratory/Chest: Present: Other (Poor air entry bilaterally) Cardiovascular: Present: Regular Rate and Rhythm, Normal S1, S2. No: Murmurs Abdomen: Present: Normal Bowel Sounds. No: Tenderness, Distention, Peritoneal Signs Back: Present: Normal Inspection Upper Extremity: Present: Normal Inspection. No: Cyanosis, Edema Lower Extremity: Present: Normal Inspection. No: Edema Neurological: Present: GCS=15, CN II-XII Intact, Speech Normal Skin: Present: Warm, Dry, Normal Color. No: Rashes Psychiatric: Present: Alert, Oriented x 3, Normal Insight, Normal Concentration Medical Decision Making ED Course and Treatment: 01/06/17 02:00 Impression: 51 year old female complaining of chest pain and shortness of breath for a few hours. Plan: -- EKG -- Chest X-ray -- VBG -- Urinalysis -- Labs -- Duoneb -- Reassess and disposition Prior Visits: Notes and results from previous visits were reviewed. Patient last seen in the ED on 12/19/16 for constant non-exertional non-radiating anterior chest pain for one week. Patient was discharged home. Progress Notes: Re-evaluation Time: 07:00 Reassessment Condition: Re-examined, Improved - Lab Interpretations Lab Results: 01/06/17 02:50 01/06/17 02:50 Lab Results 01/06/17 02:50: Sodium 144, Chloride 111 H, Potassium 3.6, Carbon Dioxide 24, Anion Gap 13, BUN 15, Creatinine 0.9, Est GFR ( Amer) > 60, Est GFR (Non- Af Amer) > 60, Random Glucose 109, Calcium 8.7, Total Bilirubin 0.4, AST 45 H, ALT 31, Alkaline Phosphatase 95, Lactate Dehydrogenase 783 H, Total Creatine Kinase 400 H, CK-MB (CK-2) 4.9 H, CK-MB (CK-2) % Cancelled, Troponin I 0.05, NT- Pro-B Natriuret Pep 70.5, Total Protein 7.1, Albumin 3.7, Globulin 3.4, Albumin/ Globulin Ratio 1.1 01/06/17 02:50: pO2 74 H, VBG pH 7.31 L, VBG pCO2 50.0, VBG HCO3 25.2, VBG Total CO2 26.7, VBG O2 Sat (Calc) 95.8 H, VBG Base Excess -1.5 L, VBG Potassium 3.6, Sodium 146.0, Chloride 115.0 H, Glucose 113 H, Lactate 1.4, FiO2 21.0, Venous Blood Potassium 3.6 01/06/17 02:50: WBC 3.6 L, RBC 3.37 L, Hgb 11.6 L, Hct 32.9 L, MCV 97.6, MCH 34.4, MCHC 35.3, RDW 12.7, Plt Count 208, MPV 9.4, Gran % 31.4 L, Lymph % (Auto ) 55.9 H, [place] % (Auto) 7.6 H, Eos % (Auto) 4.5, Baso % (Auto) 0.6, Gran # 1.12 L, Lymph # 2.0, [place] # 0.3, Eos # 0.2, Baso # 0.02 01/06/17 02:30: Urine Opiates Screen Negative, Urine Methadone Screen Negative, Ur Barbiturates Screen Negative, Ur Phencyclidine Scrn Negative, Ur Amphetamines Screen Negative, U Benzodiazepines Scrn Negative, U Oth Cocaine Metabols Negative, U Cannabinoids Screen Negative 01/06/17 02:30: Urine Color Yellow, Urine Appearance Clear, Urine pH 6.0, Ur Specific [place] 1.025, Urine Protein Trace H, Urine Glucose (UA) Negative, Urine Ketones Trace H, Urine Blood Large H, Urine Nitrate Negative, Urine Bilirubin Negative, Urine Urobilinogen 1.0 H, Ur Leukocyte Esterase Trace H, Urine RBC 15 - 20, Urine WBC 2 - 5, Ur Epithelial Cells 1 - 3, Urine Bacteria Trace - RAD Interpretation Radiology Orders: 01/06/17 02:06 CHEST PORTABLE [RAD] Stat - Medication Orders Current Medication Orders: Discontinued Medications Albuterol/Ipratropium (Duoneb 3 Mg/0.5 Mg (3 Ml) Ud) 3 ml IH Q15M DEYANIRA Stop: 01/06/17 02:46 Last Admin: 01/06/17 03:10 Dose: 3 ml Ketorolac Tromethamine (Toradol) 30 mg IVP ONCE ONE Stop: 01/06/17 06:13 Last Admin: 01/06/17 06:22 Dose: 30 mg Nitroglycerin (Nitro-Bid 2% Oint) 1 ea TOP ONCE STA Stop: 01/06/17 05:56 Last Admin: 01/06/17 06:22 Dose: 1 ea - Scribe Statement The provider has reviewed the documentation as recorded by the Candy Tovar Provider Scribe Attestation: All medical record entries made by the Liliyaibamanda were at my direction and personally dictated by me. I have reviewed the chart and agree that the record accurately reflects my personal performance of the history, physical exam, medical decision making, and the department course for this patient. I have also personally directed, reviewed, and agree with the discharge instructions and disposition. Disposition/Present on Arrival - Present on Arrival Any Indicators Present on Arrival: No History of DVT/PE: No History of Uncontrolled Diabetes: No Urinary Catheter: No History Surgical Site Infection Following: None - Disposition Have Diagnosis and Disposition been Completed?: Yes Diagnosis: Chest wall pain Disposition: HOME/ ROUTINE Disposition Time: 07:00 Condition: GOOD Discharge Instructions (ExitCare): Chest Pain (ED) Referrals: Willi Marcano [Primary Care Provider] - Follow up with primary
[2017-01-06 02:35] VITALS: TEMP 98.1
[2017-01-06] MEDS: Albuterol-Ipratrop 3 mg / 0.5 (3 ml) UD IH SCH ×3 (02:45→03:10)
[2017-01-06 02:59] LABS: ADD MANUAL DIFF? NO
[2017-01-06 03:04] LABS: VENOUS BLOOD GAS BASE EXCESS -1.5 mmol/L (0.0-2.0); VENOUS BLOOD PH 7.31 (7.32-7.43)
[2017-01-06 03:12] LABS: URINE BILIRUBIN NEGATIVE (NEGATIVE); URINE BLOOD LARGE (NEGATIVE); URINE GLUCOSE (UA) NEGATIVE (NEGATIVE); URINE KETONE TRACE mg/dL (NEGATIVE); URINE LEUKOCYTE ESTERASE TRACE Leu/uL (NEGATIVE); URINE PROTEIN TRACE mg/dL (<30 mg/dL)
[2017-01-06 03:13] LABS: ALB/GLOB RATIO 1.1 (1.1-1.8); ALKALINE PHOSPHATASE 95 U/L (38-133); ALT/SGPT 31 U/L (7-56); AST/SGOT 45 U/L (15-39); BILIRUBIN,TOTAL 0.4 mg/dL (0.2-1.3); BLOOD UREA NITROGEN 15 mg/dL (7-21); CALCIUM 8.7 mg/dL (8.4-10.5); CARBON DIOXIDE 24 mmol/L (21-33); CHLORIDE 111 mmol/L (98-107); GFR AFRICAN-AMERICAN > 60; GLUCOSE,RANDOM 109 mg/dL (70-110); POTASSIUM 3.6 mmol/L (3.6-5.0); SODIUM 144 mmol/L (132-148); TOTAL PROTEIN 7.1 g/dL (5.8-8.3)
[2017-01-06 03:18] LABS: BASO # 0.02 K/mm3 (0.0-2.0); BASO % 0.6 % (0.0-3.0); EOS # 0.2 (0.0-0.7); EOS % 4.5 % (1.5-5.0); GRAN # 1.12 (1.4-6.5); GRAN % 31.4 % (50.0-68.0); HEMATOCRIT 32.9 % (36.0-48.0); LYMPH % 55.9 % (22.0-35.0); MEAN CELL VOLUME 97.6 fL (80.0-105.0); MEAN CORPUSCULAR HEMOGLOBIN 34.4 pg (25.0-35.0); MEAN CORPUSCULAR HGB CONC 35.3 g/dl (31.0-37.0); MEAN PLATELET VOLUME 9.4 fl (7.0-11.0); MONO # 0.3 (0.1-0.6); MONO % 7.6 % (1.0-6.0); PLATELET COUNT 208 10^3/uL (120.0-450.0); RED CELL DISTRIBUTION WIDTH 12.7 % (11.5-14.5); WHITE BLOOD COUNT 3.6 10^3/ul (4.5-11.0)
[2017-01-06 03:23] LABS: URINE APPEARANCE CLEAR (CLEAR); URINE COLOR YELLOW (YELLOW); URINE RBC 15 - 20 /hpf (0-2)
[2017-01-06 03:24] LABS: URINE BACTERIA TRACE (NEG)
[2017-01-06 03:25] LABS: TROPONIN I 0.05 ng/mL
[2017-01-06] MEDS ORDERED: Nitroglycerin 2% Ointment Foilpak UD TOP STA (05:55)
[2017-01-06 07:00] VITALS: BP 132/73; PULSE 73; RESP 19; O2SAT 98
--- NOTE | 2017-01-06 07:32 | RAD ---
HISTORY: cp COMPARISON: 12/19/2016 FINDINGS: LUNGS: No active pulmonary disease. PLEURA: No significant pleural effusion identified, no pneumothorax apparent. CARDIOVASCULAR: Mild cardiomegaly OSSEOUS STRUCTURES: No significant abnormalities. VISUALIZED UPPER ABDOMEN: Normal. OTHER FINDINGS: None. IMPRESSION: No active disease.
--- NOTE | 2017-01-06 09:51 | CARD ---
APPROVED REPORT EKG Measurement Heart [id number] <Conclusion> Normal sinus rhythm Nonspecific T wave abnormality Prolonged QT Abnormal ECG
== END 2017-01-06 07:08 | disposition home or self-care (01) ==
LOC: ED 01:48
DX: R07.89 Other chest pain (principal)
CPT/HCPCS: 71010; 80053; 81001; 82550; 82553; 82803; 83615; 83880; 84484; 85025; 87086; 93005; 96374; 99284; G0480; J1885

== ENCOUNTER 2017-01-20 02:44 | Emergency (ER) | payer MEDICARE, OTHER ==
[2017-01-20 02:49] VITALS: BMI 36.5
--- NOTE | 2017-01-20 02:53 | ED PDOC ---
Arrival/HPI - General Time Seen by Provider: 01/20/17 02:47 Historian: Patient - History of Present Illness Narrative History of Present Illness (Text): 01/20/17 02:50 Paulette Abdullahi is a 51 year old female who presents to the emergency department via ambulance for alcohol intoxication. Patient admits to drinking alcohol. Denies any psychological or somatic complaints. Symptom Onset: Gradual Symptom Course: Unchanged Severity Level: Mild Activities at Onset: Light Past Medical History - Provider Review Nursing Documentation Reviewed: Yes - Infectious Disease Hx of Infectious Diseases: None - Cardiac Hx Cardiac Disorders: Yes Hx Hypertension: Yes Hx Peripheral Edema: Yes (ble +1 pitting) Other/Comment: hypotension - Pulmonary Hx Respiratory Disorders: Yes Hx Bronchitis: Yes - Neurological Hx Neurological Disorder: No - HEENT Hx HEENT Disorder: No - Renal Hx Renal Disorder: No - Endocrine/Metabolic Hx Endocrine Disorders: No - Hematological/Oncological Hx Blood Disorders: No - Integumentary Hx Dermatological Disorder: No Other/Comment: scar from scrape to r shoulder from fall last month, pt bruised r eye but it has healed - Musculoskeletal/Rheumatological Hx Falls: Yes (last month) Hx Unsteady Gait: Yes - Gastrointestinal Hx Gastrointestinal Disorders: No - Genitourinary/Gynecological Hx Genitourinary Disorders: No - Psychiatric Hx Psychophysiologic Disorder: Yes Hx Anxiety: Yes Hx Depression: Yes Hx Substance Use: Yes (clean 18 yrs as per pt cocaine) Other/Comment: EtOH abuse, marijuana use, cocaine abuse - Surgical History Other/Comment: Tubal ligation - Anesthesia Hx Anesthesia: No Family/Social History - Physician Review Nursing Documentation Reviewed: Yes Family/Social History: No Known Family HX Smoking Status: Light Smoker < 10 Cigarettes Daily Hx Alcohol Use: Yes (beer last night) Hx Substance Use: Yes (clean 18 yrs as per pt cocaine) Allergies/Home Meds Allergies/Adverse Reactions: Allergies No Known Allergies Allergy (Verified 01/20/17 02:47) Home Medications: Home Meds Medication Instructions Recorded Confirmed Budesonide/Formoterol Fumarate 2 puff IH DAILY 12/12/16 01/20/17 [Symbicort] amLODIPine [Norvasc] 5 mg PO DAILY 12/12/16 01/20/17 Review of Systems - Review of Systems Systems not reviewed;Unavailable: Intoxicated Respiratory: absent: SOB, Cough, Sputum Cardiovascular: absent: Chest Pain, Palpitations Gastrointestinal: absent: Abdominal Pain, Diarrhea, Nausea, Vomiting Psychiatric: absent: Suicidal Ideation Physical Exam Vital Signs Reviewed: Yes Vital Signs Temp Pulse Resp BP Pulse Ox 01/20/17 06:11 122/56 L 01/20/17 03:01 97.7 F 88 17 116/55 L 96 Temperature: Afebrile Blood Pressure: Normal Pulse: Regular Respiratory Rate: Normal Appearance: Positive for: Well-Appearing, Comfortable Pain Distress: None Mental Status: Positive for: Alert and Oriented X 3 - Systems Exam Head: Present: Atraumatic, Normocephalic Pupils: Present: PERRL Conjunctiva: Present: Normal Mouth: Present: Moist Mucous Membranes Respiratory/Chest: Present: Clear to Auscultation, Good Air Exchange. No: Respiratory Distress, Accessory Muscle Use Cardiovascular: Present: Regular Rate and Rhythm, Normal S1, S2. No: Murmurs Abdomen: Present: Normal Bowel Sounds. No: Tenderness, Distention, Peritoneal Signs, Rebound, Guarding Upper Extremity: Present: Normal Inspection. No: Cyanosis, Edema Lower Extremity: Present: Normal Inspection. No: Edema Neurological: Present: GCS=15, CN II-XII Intact, Speech Normal Skin: Present: Warm, Dry, Normal Color. No: Rashes Psychiatric: Present: Alert, Oriented x 3, Intoxicated. No: Suicidal Ideation, Homicidal Ideation Medical Decision Making ED Course and Treatment: 01/20/17 02:53 Impression: A 51 year old female who presents to the emergency department via ambulance for alcohol intoxication. Plan: -- Reassess and disposition Progress Notes: Re-evaluation Time: 06:19 Reassessment Condition: Re-examined, Improved - Scribe Statement The provider has reviewed the documentation as recorded by the Anjalie Diana Mcelroy Provider Attestation: Provider Scribe Attestation: All medical record entries made by the Liliyaibamanda were at my direction and personally dictated by me. I have reviewed the chart and agree that the record accurately reflects my personal performance of the history, physical exam, medical decision making, and the department course for this patient. I have also personally directed, reviewed, and agree with the discharge instructions and disposition. Disposition/Present on Arrival - Present on Arrival Any Indicators Present on Arrival: No History of DVT/PE: No History of Uncontrolled Diabetes: No Urinary Catheter: No History Surgical Site Infection Following: None - Disposition Have Diagnosis and Disposition been Completed?: Yes Diagnosis: Alcohol intoxication Disposition: HOME/ ROUTINE Disposition Time: 06:19 Condition: GOOD Discharge Instructions (ExitCare): Abuse of Alcohol (ED)
[2017-01-20 06:12] VITALS: BP 122/56
[2017-01-20 06:55] VITALS: PULSE 84; RESP 18; TEMP 97.6
[2017-01-20 06:56] VITALS: O2SAT 97
== END 2017-01-20 06:20 | disposition home or self-care (01) ==
LOC: ED 02:44
DX: F10.129 Alcohol abuse with intoxication, unspecified (principal)

== ENCOUNTER 2017-02-15 03:47 | Emergency (ER) | payer MEDICARE, OTHER ==
[2017-02-15 03:57] VITALS: BMI 33.6
[2017-02-15 04:03] VITALS: RESP 18; TEMP 98.3
[2017-02-15] MEDS ORDERED: Albuterol-Ipratrop 3 mg / 0.5 (3 ml) UD IH STA (04:03)
--- NOTE | 2017-02-15 04:03 | ED PDOC ---
Arrival/HPI - General Time Seen by Provider: 02/15/17 03:49 Historian: Patient - History of Present Illness Narrative History of Present Illness (Text): 02/15/17 04:02 Paulette Abdullahi is a 51 year old female, whose past medical history includes hypertension, alcohol abuse, cocaine abuse, and tobacco abuse, who presents to the Emergency department complaining of mid-sternal chest pain since yesterday morning. Patient states pain is worse with deep inspiration. Patient denies any fever, chills, nausea, vomiting, diarrhea, urinary symptoms, back pain, neck pain, headache, dizziness, or any other complaints. Time/Duration: Other (yesterday morning) Symptom Onset: Gradual Symptom Course: Unchanged Activities at Onset: Light Past Medical History - Provider Review Nursing Documentation Reviewed: Yes - Infectious Disease Hx of Infectious Diseases: None - Cardiac Hx Cardiac Disorders: Yes Hx Hypertension: Yes Hx Peripheral Edema: Yes (ble +1 pitting) Other/Comment: hypotension - Pulmonary Hx Respiratory Disorders: Yes Hx Bronchitis: Yes - Neurological Hx Neurological Disorder: No - HEENT Hx HEENT Disorder: No - Renal Hx Renal Disorder: No - Endocrine/Metabolic Hx Endocrine Disorders: No - Hematological/Oncological Hx Blood Disorders: No - Integumentary Hx Dermatological Disorder: No Other/Comment: scar from scrape to r shoulder from fall last month, pt bruised r eye but it has healed - Musculoskeletal/Rheumatological Hx Falls: Yes (last month) Hx Unsteady Gait: Yes - Gastrointestinal Hx Gastrointestinal Disorders: No - Genitourinary/Gynecological Hx Genitourinary Disorders: No - Psychiatric Hx Psychophysiologic Disorder: Yes Hx Anxiety: Yes Hx Depression: Yes Hx Substance Use: Yes (clean 18 yrs as per pt cocaine) Other/Comment: EtOH abuse, marijuana use, cocaine abuse - Surgical History Other/Comment: Tubal ligation - Anesthesia Hx Anesthesia: No Family/Social History - Physician Review Nursing Documentation Reviewed: Yes Family/Social History: Unknown Family HX Smoking Status: Light Smoker < 10 Cigarettes Daily Hx Alcohol Use: Yes (beer last night) Hx Substance Use: Yes (clean 18 yrs as per pt cocaine) Allergies/Home Meds Allergies/Adverse Reactions: Allergies No Known Allergies Allergy (Verified 01/20/17 02:47) Home Medications: Home Meds Medication Instructions Recorded Confirmed Budesonide/Formoterol Fumarate 2 puff IH DAILY 12/12/16 02/15/17 [Symbicort] amLODIPine [Norvasc] 5 mg PO DAILY 12/12/16 02/15/17 Review of Systems - Physician Review All systems were reviewed & negative as marked: Yes - Review of Systems Constitutional: Normal. absent: Fevers Eyes: Normal ENT: Normal Respiratory: absent: Cough Cardiovascular: Chest Pain Gastrointestinal: Normal. absent: Diarrhea, Nausea, Vomiting Genitourinary Female: Normal. absent: Dysuria, Frequency, Hematuria, Urine Output Changes Musculoskeletal: Normal. absent: Back Pain, Neck Pain Skin: Normal. absent: Rash Neurological: Normal. absent: Headache, Dizziness Endocrine: Normal Hemo/Lymphatic: Normal Psychiatric: Normal Physical Exam Vital Signs Reviewed: Yes Vital Signs Temp Pulse Resp BP Pulse Ox 02/15/17 06:56 65 18 130/85 98 02/15/17 05:47 67 18 122/71 97 02/15/17 03:47 98.3 F 68 18 145/91 H 99 Temperature: Afebrile Blood Pressure: Normal Pulse: Regular Respiratory Rate: Normal Appearance: Positive for: Well-Appearing, Non-Toxic, Comfortable Pain Distress: None Mental Status: Positive for: Alert and Oriented X 3 - Systems Exam Head: Present: Atraumatic, Normocephalic Pupils: Present: PERRL Extroacular Muscles: Present: EOMI Conjunctiva: Present: Normal Mouth: Present: Moist Mucous Membranes Neck: Present: Normal Range of Motion Respiratory/Chest: Present: Clear to Auscultation, Good Air Exchange. No: Respiratory Distress, Accessory Muscle Use Cardiovascular: Present: Regular Rate and Rhythm, Normal S1, S2. No: Murmurs Abdomen: Present: Normal Bowel Sounds. No: Tenderness, Distention, Peritoneal Signs Back: Present: Normal Inspection Upper Extremity: Present: Normal Inspection. No: Cyanosis, Edema Lower Extremity: Present: Normal Inspection. No: Edema Neurological: Present: GCS=15, CN II-XII Intact, Speech Normal Skin: Present: Warm, Dry, Normal Color. No: Rashes Psychiatric: Present: Alert, Oriented x 3, Normal Insight, Normal Concentration Medical Decision Making ED Course and Treatment: 02/15/17 04:02 Impression: 51 year old female complaining of mid-sternal chest pain, worse with Plan: -- EKG -- Chest X-ray -- Duoneb -- Reassess and disposition Prior Visits: Notes and results from previous visits were reviewed. Progress Notes: Reviewed EKG, NSR at [address] Non-specific ST/T wave changes. 02/15/17 04:31 Reviewed radiology, Chest X-ray shows no acute processes. Re-evaluation Time: 06:37 Reassessment Condition: Re-examined, Improved - RAD Interpretation Radiology Orders: 02/15/17 04:02 CHEST PORTABLE [RAD] Stat - Medication Orders Current Medication Orders: Discontinued Medications Albuterol/Ipratropium (Duoneb 3 Mg/0.5 Mg (3 Ml) Ud) 3 ml IH STAT STA Stop: 02/15/17 04:04 Last Admin: 02/15/17 04:16 Dose: 3 ml - Scribe Statement The provider has reviewed the documentation as recorded by the Candy Knight Provider Scribe Attestation: All medical record entries made by the Scribe were at my direction and personally dictated by me. I have reviewed the chart and agree that the record accurately reflects my personal performance of the history, physical exam, medical decision making, and the department course for this patient. I have also personally directed, reviewed, and agree with the discharge instructions and disposition. Disposition/Present on Arrival - Present on Arrival Any Indicators Present on Arrival: No History of DVT/PE: No History of Uncontrolled Diabetes: No Urinary Catheter: No History Surgical Site Infection Following: None - Disposition Have Diagnosis and Disposition been Completed?: Yes Diagnosis: Chronic obstructive lung disease Disposition: HOME/ ROUTINE Disposition Time: 06:38 Condition: GOOD Discharge Instructions (ExitCare): COPD (Chronic Obstructive Pulmonary Disease ) (ED) Additional Instructions: stop smoking Forms: [employer] ([place])
[2017-02-15 06:57] VITALS: BP 130/85; PULSE 65; O2SAT 98
--- NOTE | 2017-02-15 10:04 | CARD ---
APPROVED REPORT EKG Measurement Heart [id number] <Conclusion> Normal sinus rhythm Minimal voltage criteria for LVH, may be normal variant Improved repolarization c/w ECG 01/06/17 Normal ECG
--- NOTE | 2017-02-15 11:46 | RAD ---
HISTORY: cp COMPARISON: 01/06/2017 FINDINGS: LUNGS: No active pulmonary disease. PLEURA: No significant pleural effusion identified, no pneumothorax apparent. CARDIOVASCULAR: Normal. OSSEOUS STRUCTURES: No significant abnormalities. VISUALIZED UPPER ABDOMEN: Normal. OTHER FINDINGS: None. IMPRESSION: No active disease.
== END 2017-02-15 06:57 | disposition home or self-care (01) ==
LOC: ED 03:47
DX: J44.9 Chronic obstructive pulmonary disease, unspecified (principal); F17.210 Nicotine dependence, cigarettes, uncomplicated; I10 Essential (primary) hypertension

== ENCOUNTER 2017-03-10 00:19 | Emergency (ER) | payer MEDICARE, OTHER ==
[2017-03-10 00:20] VITALS: BMI 33.6
--- NOTE | 2017-03-10 01:05 | ED PDOC ---
Arrival/HPI - General Historian: Patient - History of Present Illness Time/Duration: Prior to Arrival Symptom Onset: Sudden Symptom Course: Unchanged Quality: Aching Severity Level: Mild Activities at Onset: Rest Context: Sitting <Venessa,Christopher - Last Filed: 03/10/17 02:12> <Ever Reid - Last Filed: 03/10/17 03:47> - General Chief Complaint: Chest Pain Time Seen by Provider: 03/10/17 00:23 - History of Present Illness Narrative History of Present Illness (Text): 03/10/17 01:05 52yo F with PMHx of HTN, ETOH abuse, cocaine abuse, tobacco abuse here for evaluation of chest pain. Pain is located in the center of the chest. Worse with deep inspiration. Pain is described as sharp, worse with palpation of the mid sternum. Patient states that this episode started just prior to arrival, when she was sitting down with her friend, no stress or exertion reported. Patient also c/o cough productive of green sputum and associated with some mild sob. Denies N/V/D. No Abd pain. No F/C. No dysuria. Patient states that the current symptoms are exactly the same as previous episodes she has had. PMD: Dr. Galeano PMHx: HTN PSHx: Denies Social Hx: Admits to 2 cigs/day, previous heavy (>1ppd) smoker, drinks ETOH occasionally, cocaine abuse. (Christopher Clifford) Past Medical History - Provider Review Nursing Documentation Reviewed: Yes - Infectious Disease Hx of Infectious Diseases: None - Reproductive Menopause: Yes - Cardiac Hx Cardiac Disorders: Yes Hx Hypertension: Yes Hx Peripheral Edema: Yes (ble +1 pitting) Other/Comment: hypotension - Pulmonary Hx Respiratory Disorders: Yes Hx Bronchitis: Yes - Neurological Hx Neurological Disorder: No - HEENT Hx HEENT Disorder: No - Renal Hx Renal Disorder: No - Endocrine/Metabolic Hx Endocrine Disorders: No - Hematological/Oncological Hx Blood Disorders: No - Integumentary Hx Dermatological Disorder: No Other/Comment: scar from scrape to r shoulder from fall last month, pt bruised r eye but it has healed - Musculoskeletal/Rheumatological Hx Falls: Yes (last month) Hx Unsteady Gait: Yes - Gastrointestinal Hx Gastrointestinal Disorders: No - Genitourinary/Gynecological Hx Genitourinary Disorders: No - Psychiatric Hx Psychophysiologic Disorder: Yes Hx Anxiety: Yes Hx Depression: Yes Hx Substance Use: Yes (clean 18 yrs as per pt cocaine) Other/Comment: EtOH abuse, marijuana use, cocaine abuse - Surgical History Hx Tubal Ligation: Yes Other/Comment: Tubal ligation - Anesthesia Hx Anesthesia: No <Christopher Clifford - Last Filed: 03/10/17 02:12> Family/Social History - Physician Review Nursing Documentation Reviewed: Yes Family/Social History: Unknown Family HX Smoking Status: Light Smoker < 10 Cigarettes Daily Hx Alcohol Use: Yes (beer last night) Frequency of alcohol use: Daily Hx Substance Use: Yes (clean 18 yrs as per pt cocaine) <Christopher Clifford - Last Filed: 03/10/17 02:12> Allergies/Home Meds <Christopher Clifford - Last Filed: 03/10/17 02:12> <Ever Reid - Last Filed: 03/10/17 03:47> Allergies/Adverse Reactions: Allergies No Known Allergies Allergy (Verified 03/10/17 00:24) Home Medications: Home Meds Medication Instructions Recorded Confirmed Budesonide/Formoterol Fumarate 2 puff IH DAILY 12/12/16 02/15/17 [Symbicort] amLODIPine [Norvasc] 5 mg PO DAILY 12/12/16 02/15/17 Review of Systems - Physician Review All systems were reviewed & negative as marked: Yes - Review of Systems Constitutional: Normal. absent: Fevers Eyes: Normal ENT: Normal Respiratory: SOB, Cough, Sputum Cardiovascular: Chest Pain. absent: Edema, Calf Pain, AU Gastrointestinal: absent: Abdominal Pain, Nausea, Vomiting Genitourinary Female: absent: Dysuria, Frequency Musculoskeletal: absent: Back Pain Skin: absent: Rash, Pruritis Neurological: absent: Headache, Dizziness Endocrine: absent: Diaphoresis Hemo/Lymphatic: absent: Adenopathy Psychiatric: absent: Anxiety <Christopher Clifford - Last Filed: 03/10/17 02:12> Physical Exam Vital Signs Reviewed: Yes Temperature: Afebrile Blood Pressure: Normal Pulse: Regular Respiratory Rate: Normal Appearance: Positive for: Well-Appearing Pain Distress: Mild Mental Status: Positive for: Alert and Oriented X 3 - Systems Exam Head: Present: Atraumatic, Normocephalic Pupils: Present: PERRL Extroacular Muscles: Present: EOMI Conjunctiva: Present: Injected Mouth: Present: Moist Mucous Membranes Neck: Present: Normal Range of Motion. No: JVD Respiratory/Chest: Present: Clear to Auscultation, Good Air Exchange. No: Respiratory Distress, Accessory Muscle Use, Wheezes, Rales, Rhonchi Cardiovascular: Present: Normal S1, S2. No: Murmurs Abdomen: No: Tenderness, Distention, Peritoneal Signs, Rebound, Guarding Upper Extremity: Present: Normal Inspection, Normal ROM. No: Edema Lower Extremity: Present: Normal Inspection, NORMAL PULSES. No: Edema, CALF TENDERNESS Neurological: Present: GCS=15 Skin: Present: Warm, Dry, Normal Color. No: Rashes Psychiatric: Present: Alert, Oriented x 3 <Christopher Clifford - Last Filed: 03/10/17 02:12> Medical Decision Making <Christopher Clifford - Last Filed: 03/10/17 02:12> <Ever Reid - Last Filed: 03/10/17 03:47> ED Course and Treatment: 03/10/17 01:20 52yo F with Atypical Chest Pain - CXR - CBC - CMP - Troponin - EKG 03/10/17 01:21 On Reevaluation, Patient is resting comfortably in bed. Requesting for something to eat. Patient asking me to shut the curtains and turn off the lights. 03/10/17 02:07 EKG - Normal sinus rhythm at 64. No ST changes apparent. Similar study compared to previous EKGs. 03/10/17 02:13 CXR - Rotated. Grossly normal. Troponin indeterminate, similar to all previous labs. CBC/CMP within normal limits Will prescribe course of Azithromycin. Discussed findings with patient. Patient understands and agrees with plan. She will Follow up with her PMD. All questions and concerns addressed. (Christopher Clifford) 03/10/17 02:23 Pt. seen and evaluated with medical and health services manager.Agree with HPI,treatment and plan. 03/10/17 03:42 In agreement with resident note, which includes further HPI details. Patient was seen and evaluated with resident, came up with plan and treatment together. 52 year old female, whose past medical history of hypertension, alcohol abuse, and substance abuse present complaining of chest pain. (Ever Reid) - Lab Interpretations Lab Results: 03/10/17 01:10 03/10/17 01:10 Lab Results 03/10/17 01:10: Sodium 146, Potassium 3.7, Chloride 109 H, Carbon Dioxide 26, Anion Gap 15, BUN 16, Creatinine 0.7, Est GFR ( Amer) > 60, Est GFR (Non- Af Amer) > 60, Random Glucose 77, Calcium 9.2, Total Bilirubin 0.3, AST 78 H, ALT 44, Alkaline Phosphatase 99, Lactate Dehydrogenase 931 H, Total Creatine Kinase 503 H, CK-MB (CK-2) 6.5 H, CK-MB (CK-2) % 1.3 L, Troponin I 0.05, Total Protein 7.0, Albumin 3.9, Globulin 3.2, Albumin/Globulin Ratio 1.2 03/10/17 01:10: WBC 4.6 D, RBC 3.98, Hgb 13.7, Hct 38.6, MCV 97.0, MCH 34.4, MCHC 35.5, RDW 13.0, Plt Count 191, MPV 9.4, Gran % 34.3 L, Lymph % (Auto) 56.1 H, [place] % (Auto) 6.1 H, Eos % (Auto) 3.1, Baso % (Auto) 0.4, Gran # 1.57, Lymph # 2.6, [place] # 0.3, Eos # 0.1, Baso # 0.02 - RAD Interpretation Radiology Orders: 03/10/17 01:02 CHEST PORTABLE [RAD] Stat - Medication Orders Current Medication Orders: Discontinued Medications Albuterol/Ipratropium (Duoneb 3 Mg/0.5 Mg (3 Ml) Ud) 3 ml IH STAT STA Stop: 03/10/17 01:08 Last Admin: 03/10/17 01:24 Dose: - PA / FLORAL MERCHANDISER / Resident Statement / has reviewed & agrees with the documentation as recorded. / has examined the patient and agrees with the treatment plan. <Christopher Clifford - Last Filed: 03/10/17 02:12> - Scribe Statement The provider has reviewed the documentation as recorded by the Scribe <Ever Reid - Last Filed: 03/10/17 03:47> - Scribe Statement Da Perez All medical record entries made by the Scribe were at my direction and personally dictated by me. I have reviewed the chart and agree that the record accurately reflects my personal performance of the history, physical exam, medical decision making, and the department course for this patient. I have also personally directed, reviewed, and agree with the discharge instructions and disposition. (Ever Reid) Disposition/Present on Arrival - Present on Arrival Any Indicators Present on Arrival: No History of DVT/PE: No History of Uncontrolled Diabetes: No Urinary Catheter: No History of Decub. Ulcer: No History Surgical Site Infection Following: None - Disposition Have Diagnosis and Disposition been Completed?: Yes Disposition Time: 02:16 Patient Plan: Discharge <Christopher Clifford - Last Filed: 03/10/17 02:12> <Ever Reid - Last Filed: 03/10/17 03:47> - Disposition Diagnosis: Bronchitis Disposition: HOME/ ROUTINE Patient Problems: Current Active Problems Problem Status Onset Bronchitis Acute Condition: STABLE Discharge Instructions (ExitCare): Acute Bronchitis (ED) Additional Instructions: 1. Follow up with your PMD within 3 days 2. Take antibiotics as directed to completion 3. Return to the ER with any concerning symptoms Prescriptions: Azithromycin [Z-Alfred] 250 mg PO DAILY #6 tab
[2017-03-10 01:06] VITALS: RESP 18; TEMP 97.5
[2017-03-10] MEDS ORDERED: Albuterol-Ipratrop 3 mg / 0.5 (3 ml) UD IH STA (01:07)
[2017-03-10 01:32] LABS: BASO # 0.02 K/mm3 (0.0-2.0); BASO % 0.4 % (0.0-3.0); EOS # 0.1 (0.0-0.7); EOS % 3.1 % (1.5-5.0); GRAN # 1.57 (1.4-6.5); GRAN % 34.3 % (50.0-68.0); HEMATOCRIT 38.6 % (36.0-48.0); LYMPH # 2.6 (1.2-3.4); LYMPH % 56.1 % (22.0-35.0); MEAN CORPUSCULAR HEMOGLOBIN 34.4 pg (25.0-35.0); MEAN CORPUSCULAR HGB CONC 35.5 g/dl (31.0-37.0); MEAN PLATELET VOLUME 9.4 fl (7.0-11.0); MONO # 0.3 (0.1-0.6); MONO % 6.1 % (1.0-6.0); WHITE BLOOD COUNT 4.6 10^3/ul (4.5-11.0)
[2017-03-10 01:38] LABS: ALB/GLOB RATIO 1.2 (1.1-1.8); ALKALINE PHOSPHATASE 99 U/L (38-133); ALT/SGPT 44 U/L (7-56); AST/SGOT 78 U/L (15-39); BILIRUBIN,TOTAL 0.3 mg/dL (0.2-1.3); BLOOD UREA NITROGEN 16 mg/dL (7-21); CALCIUM 9.2 mg/dL (8.4-10.5); CARBON DIOXIDE 26 mmol/L (21-33); CHLORIDE 109 mmol/L (98-107); GFR AFRICAN-AMERICAN > 60; GLUCOSE,RANDOM 77 mg/dL (70-110); POTASSIUM 3.7 mmol/L (3.6-5.0); SODIUM 146 mmol/L (132-148)
[2017-03-10 01:49] LABS: TROPONIN I 0.05 ng/mL
[2017-03-10 06:28] VITALS: BP 127/89; PULSE 79; O2SAT 99
--- NOTE | 2017-03-10 08:23 | RAD ---
HISTORY: Chest pain, cough COMPARISON: 02/15/2017. FINDINGS: LUNGS: The lungs are well inflated and clear. PLEURA: No significant pleural effusion identified, no pneumothorax apparent. CARDIOVASCULAR: Normal. OSSEOUS STRUCTURES: No significant abnormalities. VISUALIZED UPPER ABDOMEN: Normal. OTHER FINDINGS: None. IMPRESSION: No active pulmonary disease.
--- NOTE | 2017-03-10 11:35 | CARD ---
APPROVED REPORT EKG Measurement Heart [id number] <Conclusion> Normal sinus rhythm Possible Left atrial enlargement Borderline ECG
== END 2017-03-10 06:28 | disposition home or self-care (01) ==
LOC: ED 00:19
DX: J20.9 Acute bronchitis, unspecified (principal); I10 Essential (primary) hypertension; F17.210 Nicotine dependence, cigarettes, uncomplicated

== ENCOUNTER 2017-04-21 23:45 | Emergency (ER) | payer MEDICARE, OTHER ==
[2017-04-21 23:46] VITALS: BMI 33.6
[2017-04-21 23:55] VITALS: RESP 16; TEMP 98.4; O2SAT 97
--- NOTE | 2017-04-22 00:43 | ED PDOC ---
Arrival/HPI - General Chief Complaint: Trauma Time Seen by Provider: 04/22/17 00:08 Historian: Patient - History of Present Illness Narrative History of Present Illness (Text): 04/22/17 00:34 A 52 year old female, whose past medical history includes EtOH abuse, cocaine abuse, tobacco abuse, and hypertension, presents to the emergency department complaining of fall. Patient reports she fell while taking a shower and injured her left knee and right 5th digit finger. Patient denies of any loss of consciousness, head trauma, headache, dizziness, or any other complaints. PMD: Dr. Fields Time/Duration: Prior to Arrival Symptom Onset: Sudden Symptom Course: Unchanged Past Medical History - Provider Review Nursing Documentation Reviewed: Yes - Infectious Disease Hx of Infectious Diseases: None - Cardiac Hx Cardiac Disorders: Yes Hx Hypertension: Yes Hx Peripheral Edema: Yes (ble +1 pitting) Other/Comment: hypotension - Pulmonary Hx Respiratory Disorders: Yes Hx Bronchitis: Yes - Neurological Hx Neurological Disorder: No - HEENT Hx HEENT Disorder: No - Renal Hx Renal Disorder: No - Endocrine/Metabolic Hx Endocrine Disorders: No - Hematological/Oncological Hx Blood Disorders: No - Integumentary Hx Dermatological Disorder: No Other/Comment: scar from scrape to r shoulder from fall last month, pt bruised r eye but it has healed - Musculoskeletal/Rheumatological Hx Falls: Yes (last month) Hx Unsteady Gait: Yes - Gastrointestinal Hx Gastrointestinal Disorders: No - Genitourinary/Gynecological Hx Genitourinary Disorders: No - Psychiatric Hx Psychophysiologic Disorder: Yes Hx Anxiety: Yes Hx Depression: Yes Hx Substance Use: Yes (clean 18 yrs as per pt cocaine) Other/Comment: EtOH abuse, marijuana use, cocaine abuse - Surgical History Hx Tubal Ligation: Yes Other/Comment: Tubal ligation - Anesthesia Hx Anesthesia: No Family/Social History - Physician Review Nursing Documentation Reviewed: Yes Family/Social History: No Known Family HX Smoking Status: Light Smoker < 10 Cigarettes Daily Hx Alcohol Use: Yes (beer last night) Hx Substance Use: Yes (clean 18 yrs as per pt cocaine) Allergies/Home Meds Allergies/Adverse Reactions: Allergies No Known Allergies Allergy (Verified 03/10/17 00:24) Home Medications: Home Meds Medication Instructions Recorded Confirmed Budesonide/Formoterol Fumarate 2 puff IH DAILY 06/02/17 10/11/17 [Symbicort] amLODIPine [Norvasc] 5 mg PO DAILY 12/12/16 04/22/17 Review of Systems - Physician Review All systems were reviewed & negative as marked: Yes - Review of Systems Constitutional: absent: Other (no head trauma) Musculoskeletal: Other (injury to left knee and right 5th digit finger.) Neurological: absent: Headache, Dizziness, Other (no loss of consciousness) Physical Exam Vital Signs Reviewed: Yes Vital Signs Temp Pulse Resp BP Pulse Ox 04/22/17 02:51 98.4 F 70 16 151/83 H 97 04/21/17 23:54 98.4 F 87 16 161/89 H 97 Temperature: Afebrile Blood Pressure: Hypertensive Pulse: Regular Respiratory Rate: Normal Appearance: Positive for: Well-Appearing Pain Distress: None Mental Status: Positive for: Alert and Oriented X 3 - Systems Exam Head: Present: Atraumatic, Normocephalic Pupils: Present: PERRL Extroacular Muscles: Present: EOMI Conjunctiva: Present: Normal Mouth: Present: Moist Mucous Membranes Neck: Present: Normal Range of Motion Respiratory/Chest: Present: Clear to Auscultation, Good Air Exchange. No: Respiratory Distress, Accessory Muscle Use Cardiovascular: Present: Regular Rate and Rhythm, Normal S1, S2. No: Murmurs Abdomen: Present: Normal Bowel Sounds. No: Tenderness, Distention, Peritoneal Signs Back: Present: Normal Inspection Upper Extremity: Present: Normal Inspection. No: Cyanosis, Edema Lower Extremity: Present: Normal Inspection. No: Edema Neurological: Present: GCS=15, CN II-XII Intact, Speech Normal Skin: Present: Warm, Dry, Normal Color. No: Rashes Psychiatric: Present: Alert, Oriented x 3, Normal Insight, Normal Concentration Medical Decision Making ED Course and Treatment: 04/22/17 00:40 Impression: 52 year old female with injury to left knee and right 5th digit finger. Normal physical exam. Plan: -- Right Hand (5th digit) X-Ray -- Left Knee X-ray -- Reassess and disposition Prior Visits: Notes and results from previous visits were reviewed. Patient was last seen here in the emergency department on 03/10/2017 for central chest pain. Patient was discharged home. x rays neg fx Progress Notes: 04/22/17 19:23 - RAD Interpretation Radiology Orders: 04/22/17 00:21 KNEE LEFT 2 VIEWS (AP & LAT) [RAD] Stat 04/22/17 00:22 HAND RIGHT 5TH DIGIT (FINGER) [RAD] Stat - Scribe Statement The provider has reviewed the documentation as recorded by the Candy Garzon Provider Scribe Attestation: All medical record entries made by the Scribe were at my direction and personally dictated by me. I have reviewed the chart and agree that the record accurately reflects my personal performance of the history, physical exam, medical decision making, and the department course for this patient. I have also personally directed, reviewed, and agree with the discharge instructions and disposition. Disposition/Present on Arrival - Present on Arrival Any Indicators Present on Arrival: No History of DVT/PE: No History of Uncontrolled Diabetes: No Urinary Catheter: No History of Decub. Ulcer: No History Surgical Site Infection Following: None - Disposition Have Diagnosis and Disposition been Completed?: Yes Diagnosis: Contusion, knee, Finger strain Disposition: HOME/ ROUTINE Disposition Time: 03:00 Condition: GOOD Discharge Instructions (ExitCare): Knee Sprain (ED), Finger Sprain (ED) Additional Instructions: advil as needed for pain wear splint 4 to 5 days Referrals: Issac Galeano MD [Primary Care Provider] - Follow up with primary Forms: [employer] (Polish)
[2017-04-22 02:56] VITALS: BP 151/83; PULSE 70
--- NOTE | 2017-04-22 08:21 | RAD ---
PROCEDURE: Left Knee Radiographs. HISTORY: Pain. COMPARISON: None. FINDINGS: BONES: Peripatellar quadriceps and patellar tendon insertional enthesophyte. No fracture. Lateral knee joint line and tibial spine spurring JOINTS: Mild osteoarthritis. JOINT EFFUSION: Probable small present OTHER FINDINGS: Anterior subcutaneous tissue thickening -chronicity unknown IMPRESSION: No fracture or dislocation. Mild osteoarthrosis Peripatellar enthesophytes
--- NOTE | 2017-04-22 08:46 | RAD ---
PROCEDURE: Right small finger radiographs. HISTORY: fall COMPARISON: None. TECHNIQUE: AP radiograph of the right hand, as well as spot oblique and lateral images of small finger were obtained. FINDINGS: RIGHT SMALL FINGER: Normal right small finger, without fracture or focal lesion. Osteophytic spurring -1st metatarsal-phalangeal joint an osseous hypertrophic changes at the distal interphalangeal joints are noted. A well corticated ossification locally a chip fracture of a osteophyte of the 1st digit dorsal distal phalanx - interphalangeal joint level noted. This 1st digit however is not apparently patient's area of current concern. JOINTS: Osteoarthrosis- distal phalangeal joints most notable. - 1st carpal metacarpal level also affected. SOFT TISSUES: Normal. OTHER FINDINGS: None. IMPRESSION: No 5th digit fracture or dislocation. Remote from patient's current area of interest is a dorsal chip fracture fragment 1st digit distal phalanx interphalangeal joint level. Osteoarthrosis
== END 2017-04-22 03:01 | disposition home or self-care (01) ==
LOC: ED 23:45
DX: S80.02XA Contusion of left knee, initial encounter (principal); S56.417A Strain of extensor muscle, fascia and tendon of right little finger at forearm level, initial encounter; W18.2XXA Fall in (into) shower or empty bathtub, initial encounter; Y93.E1 Activity, personal bathing and showering; Y92.002 Bathroom of unspecified non-institutional (private) residence as the place of occurrence of the external cause

== ENCOUNTER 2017-04-26 02:30 | Emergency (ER) | payer MEDICARE, OTHER ==
--- NOTE | 2017-04-26 02:49 | ED PDOC ---
Arrival/HPI - General Chief Complaint: Anxiety Time Seen by Provider: 04/26/17 02:34 Historian: Patient - History of Present Illness Narrative History of Present Illness (Text): 04/26/17 02:47 Paulette Abdullahi is a 52 year old female, whose past medical history includes hypertension, alcohol abuse, cocaine abuse, and tobacco abuse, who presents to the Emergency department complaining of mid-sternal chest pain since yesterday. Patient also reports she has been feeling anxious because her aunt and nephew recently yesterday. Patient denies any fever, chills, nausea, vomiting, diarrhea, urinary symptoms, back pain, neck pain, headache, dizziness , or any other complaints. Patient appears to be malingering. Time/Duration: Other (yesterday) Symptom Onset: Gradual Symptom Course: Unchanged Activities at Onset: Light Context: Home Past Medical History - Provider Review Nursing Documentation Reviewed: Yes - Infectious Disease Hx of Infectious Diseases: None - Cardiac Hx Cardiac Disorders: Yes Hx Hypertension: Yes Hx Peripheral Edema: Yes (ble +1 pitting) - Pulmonary Hx Respiratory Disorders: Yes Hx Bronchitis: Yes - Neurological Hx Neurological Disorder: No - HEENT Hx HEENT Disorder: No - Renal Hx Renal Disorder: No - Endocrine/Metabolic Hx Endocrine Disorders: No - Hematological/Oncological Hx Blood Disorders: No - Integumentary Hx Dermatological Disorder: No Other/Comment: scar from scrape to r shoulder from fall last month, pt bruised r eye but it has healed - Musculoskeletal/Rheumatological Hx Falls: Yes (last month) Hx Unsteady Gait: Yes - Gastrointestinal Hx Gastrointestinal Disorders: No - Genitourinary/Gynecological Hx Genitourinary Disorders: No - Psychiatric Hx Psychophysiologic Disorder: Yes Hx Anxiety: Yes Hx Depression: Yes Hx Substance Use: Yes (clean 18 yrs as per pt cocaine) Other/Comment: EtOH abuse, marijuana use, cocaine abuse - Surgical History Hx Tubal Ligation: Yes Other/Comment: Tubal ligation - Anesthesia Hx Anesthesia: No Family/Social History - Physician Review Nursing Documentation Reviewed: Yes Family/Social History: Unknown Family HX Smoking Status: Light Smoker < 10 Cigarettes Daily Hx Alcohol Use: Yes (beer last night) Hx Substance Use: Yes (clean 18 yrs as per pt cocaine) Allergies/Home Meds Allergies/Adverse Reactions: Allergies No Known Allergies Allergy (Verified 04/26/17 03:27) Home Medications: Home Meds Medication Instructions Recorded Confirmed Budesonide/Formoterol Fumarate 2 puff IH DAILY 12/12/16 04/22/17 [Symbicort] amLODIPine [Norvasc] 5 mg PO DAILY 12/12/16 04/22/17 Review of Systems - Physician Review All systems were reviewed & negative as marked: Yes - Review of Systems Constitutional: Normal. absent: Fevers Eyes: Normal ENT: Normal Respiratory: Normal. absent: SOB, Cough Cardiovascular: Chest Pain Gastrointestinal: Normal. absent: Abdominal Pain, Diarrhea, Nausea, Vomiting Genitourinary Female: Normal. absent: Dysuria, Frequency, Hematuria, Urine Output Changes Musculoskeletal: Normal. absent: Back Pain, Neck Pain Skin: Normal. absent: Rash Neurological: Normal. absent: Headache, Dizziness Endocrine: Normal Hemo/Lymphatic: Normal Psychiatric: Anxiety Physical Exam Vital Signs Reviewed: Yes Vital Signs Temp Pulse Resp BP Pulse Ox 04/26/17 02:35 98.3 F 75 16 150/85 98 Temperature: Afebrile Blood Pressure: Normal Pulse: Regular Respiratory Rate: Normal Appearance: Positive for: Well-Appearing, Non-Toxic, Comfortable Pain Distress: None Mental Status: Positive for: Alert and Oriented X 3 - Systems Exam Head: Present: Atraumatic, Normocephalic Pupils: Present: PERRL Extroacular Muscles: Present: EOMI Conjunctiva: Present: Normal Mouth: Present: Moist Mucous Membranes Neck: Present: Normal Range of Motion Respiratory/Chest: Present: Clear to Auscultation, Good Air Exchange. No: Respiratory Distress, Accessory Muscle Use Cardiovascular: Present: Regular Rate and Rhythm, Normal S1, S2. No: Murmurs Abdomen: Present: Normal Bowel Sounds. No: Tenderness, Distention, Peritoneal Signs Back: Present: Normal Inspection Upper Extremity: Present: Normal Inspection. No: Cyanosis, Edema Lower Extremity: Present: Normal Inspection. No: Edema Neurological: Present: GCS=15, CN II-XII Intact, Speech Normal Skin: Present: Warm, Dry, Normal Color. No: Rashes Psychiatric: Present: Alert, Oriented x 3, Normal Insight, Normal Concentration Medical Decision Making ED Course and Treatment: 04/26/17 02:47 Impression: 52 year old female complaining of chest pain since yesterday. Plan: -- EKG -- CXR -- Labs, cardiac enzymes -- Urinalysis -- Reassess and disposition Prior Visits: Notes and results from previous visits were reviewed. On 04/22/2017, pt was seen in the Emergency department status post fall with left knee and right 5th digit finger pain. Pt was d/c home. Progress Notes: 04/26/17 03:13 Reviewed radiology, CXR shows no acute processes. 04/26/17 03:16 Reviewed EKG, NSR at [address]-segment elevations or depressions, no T-wave inversions, normal intervals. 04/26/17 06:05 On reevaluation the patient feels better and is in no acute distress. I have discussed the results and plan with the patient, who expresses understanding. Patient given the opportunity to ask question, all questions were answered and there is agreement with the plan to discharge the patient home. Patient is stable for discharge. Patient was instructed to follow up with physician/clinic in 1-2 days or return if symptoms persist/worsen or new concerning symptoms arise. - Lab Interpretations Lab Results: 04/26/17 03:10 04/26/17 03:10 Lab Results 04/26/17 03:10: Sodium 145, Potassium 4.1, Chloride 102, Carbon Dioxide 30, Anion Gap 17, BUN 14, Creatinine 0.8, Est GFR ( Amer) > 60, Est GFR (Non- Af Amer) > 60, Random Glucose 98, Calcium 9.1, Magnesium 2.0, Total Bilirubin 0.4, AST 44 H, ALT 38, Alkaline Phosphatase 99, Lactate Dehydrogenase 865 H, Total Creatine Kinase 430 H, CK-MB (CK-2) 4.6 H, CK-MB (CK-2) % Cancelled, Troponin I 0.06, Total Protein 7.2, Albumin 4.0, Globulin 3.2, Albumin/Globulin Ratio 1.3 04/26/17 03:10: WBC 5.3, RBC 3.51, Hgb 12.3, Hct 34.4 L, MCV 98.0, MCH 35.0, MCHC 35.8, RDW 13.5, Plt Count 200, MPV 9.0, Gran % 45.1 L, Lymph % (Auto) 48.4 H, [place] % (Auto) 3.8, Eos % (Auto) 2.3, Baso % (Auto) 0.4, Gran # 2.38, Lymph # 2.6, [place] # 0.2, Eos # 0.1, Baso # 0.02 I have reviewed the lab results: Yes - RAD Interpretation Radiology Orders: 04/26/17 02:52 CHEST PORTABLE [RAD] Stat Chief Compliance Officer: ED Physician - EKG Interpretation Interpreted by ED Physician: Yes Type: 12 lead EKG - Scribe Statement The provider has reviewed the documentation as recorded by the Scribe Leonor Knight All medical record entries made by the Liliyaibe were at my direction and personally dictated by me. I have reviewed the chart and agree that the record accurately reflects my personal performance of the history, physical exam, medical decision making, and the department course for this patient. I have also personally directed, reviewed, and agree with the discharge instructions and disposition. Disposition/Present on Arrival - Present on Arrival Any Indicators Present on Arrival: No History of DVT/PE: No History of Uncontrolled Diabetes: No Urinary Catheter: No History of Decub. Ulcer: No History Surgical Site Infection Following: None - Disposition Have Diagnosis and Disposition been Completed?: Yes Diagnosis: Anxiety Disposition: HOME/ ROUTINE Disposition Time: 06:05 Patient Problems: Current Active Problems Problem Status Onset Anxiety Acute Condition: GOOD Discharge Instructions (ExitCare): Anxiety (ED) Referrals: Issac Galeano MD [Primary Care Provider] - Follow up with primary Forms: [employer] (Citizen [place])
[2017-04-26 02:56] VITALS: RESP 16; TEMP 98.3
[2017-04-26 03:27] VITALS: BMI 38.0
[2017-04-26 03:29] LABS: BASO # 0.02 K/mm3 (0.0-2.0); BASO % 0.4 % (0.0-3.0); EOS # 0.1 (0.0-0.7); EOS % 2.3 % (1.5-5.0); GRAN # 2.38 (1.4-6.5); GRAN % 45.1 % (50.0-68.0); HEMATOCRIT 34.4 % (36.0-48.0); LYMPH # 2.6 (1.2-3.4); LYMPH % 48.4 % (22.0-35.0); MEAN CORPUSCULAR HGB CONC 35.8 g/dl (31.0-37.0); MONO # 0.2 (0.1-0.6); MONO % 3.8 % (1.0-6.0); RED CELL DISTRIBUTION WIDTH 13.5 % (11.5-14.5); WHITE BLOOD COUNT 5.3 10^3/ul (4.5-11.0)
[2017-04-26 03:49] LABS: ALB/GLOB RATIO 1.3 (1.1-1.8); ALKALINE PHOSPHATASE 99 U/L (38-126); ALT/SGPT 38 U/L (7-56); AST/SGOT 44 U/L (14-36); BILIRUBIN,TOTAL 0.4 mg/dL (0.2-1.3); BLOOD UREA NITROGEN 14 mg/dL (7-21); CALCIUM 9.1 mg/dL (8.4-10.5); CARBON DIOXIDE 30 mmol/L (21-33); CHLORIDE 102 mmol/L (98-107); GFR AFRICAN-AMERICAN > 60; GLUCOSE,RANDOM 98 mg/dL (70-110); SODIUM 145 mmol/L (132-148); TOTAL PROTEIN 7.2 g/dL (5.8-8.3)
[2017-04-26 04:00] LABS: TROPONIN I 0.06 ng/mL
[2017-04-26 04:05] LABS: POTASSIUM 4.1 mmol/L (3.6-5.0)
[2017-04-26 06:55] VITALS: BP 142/76; PULSE 76; O2SAT 99
--- NOTE | 2017-04-26 11:19 | RAD ---
HISTORY: cp COMPARISON: Comparison chest 03/10/2017 FINDINGS: LUNGS: Minor bibasilar atelectasis PLEURA: No significant pleural effusion identified, no pneumothorax apparent. CARDIOVASCULAR: Cardiomegaly. OSSEOUS STRUCTURES: No minor degenerative changes both acromioclavicular joints. Mild multilevel degenerative spondylosis of the thoracic spine. The the VISUALIZED UPPER ABDOMEN: Normal. OTHER FINDINGS: None. IMPRESSION: Minor bibasilar atelectasis. Cardiomegaly.
--- NOTE | 2017-04-27 12:27 | CARD ---
APPROVED REPORT EKG Measurement Heart [id number] 142P2 [id number] <Conclusion> Normal sinus rhythm Normal ECG
== END 2017-04-26 06:05 | disposition home or self-care (01) ==
LOC: ED 02:30
DX: F41.9 Anxiety disorder, unspecified (principal); I10 Essential (primary) hypertension; F17.210 Nicotine dependence, cigarettes, uncomplicated; Z98.51 Tubal ligation status

== ENCOUNTER 2017-07-03 02:17 | Observation (INO) | payer MEDICARE, OTHER ==
[2017-07-03 02:17] VITALS: BMI 38.0
--- NOTE | 2017-07-03 02:38 | ED PDOC ---
Arrival/HPI - General Chief Complaint: Chest Pain Time Seen by Provider: 07/03/17 02:22 Historian: Patient - History of Present Illness Narrative History of Present Illness (Text): 52yoF, who states hypertension, alcohol abuse, cocaine abuse, and tobacco abuse , recent [place] [facility] [place]. now here with mid-sternal chest pain, admitted alcohol use, but without nausea/vomiting/headache/dizziness/ difficulty breathing/abdomen pain/numbness/tingling/loss of limb function/pain with urination/thoughts to harm yourself or others or hallucinations. 07/03/17 02:34 07/03/17 04:14 Time/Duration: 4-6 hours Symptom Onset: Gradual Activities at Onset: Light Context: Home Past Medical History - Provider Review Nursing Documentation Reviewed: Yes - Travel History Have you recently traveled outside [place] w/in the past 3 mons?: No - Infectious Disease Hx of Infectious Diseases: None - Cardiac Hx IA: Yes Hx Hypertension: Yes Hx Peripheral Edema: Yes (ble +1 pitting) - Pulmonary Hx Bronchitis: Yes - Neurological Hx Neurological Disorder: No - HEENT Hx HEENT Disorder: No - Renal Hx Renal Disorder: No - Endocrine/Metabolic Hx Endocrine Disorders: No - Hematological/Oncological Hx Blood Disorders: No - Integumentary Hx Dermatological Disorder: No Other/Comment: scar from scrape to r shoulder from fall last month, pt bruised r eye but it has healed - Musculoskeletal/Rheumatological Hx Falls: Yes (last month) Hx Unsteady Gait: Yes - Gastrointestinal Hx Gastrointestinal Disorders: No - Genitourinary/Gynecological Hx Genitourinary Disorders: No - Psychiatric Hx Anxiety: Yes Hx Depression: Yes Hx Substance Use: Yes (clean 18 yrs as per pt cocaine) - Surgical History Hx Cardiac Catheterization: Yes (no stent) Hx Tubal Ligation: Yes Other/Comment: Tubal ligation - Anesthesia Hx Anesthesia: No Family/Social History - Physician Review Nursing Documentation Reviewed: Yes Family/Social History: No Known Family HX Smoking Status: Light Smoker < 10 Cigarettes Daily Hx Alcohol Use: Yes (beer last night) Hx Substance Use: Yes (clean 18 yrs as per pt cocaine) Allergies/Home Meds Allergies/Adverse Reactions: Allergies No Known Allergies Allergy (Verified 05/01/17 00:49) Home Medications: Home Meds Medication Instructions Recorded Confirmed Budesonide/Formoterol Fumarate 2 puff IH DAILY 12/12/16 04/22/17 [Symbicort] amLODIPine [Norvasc] 5 mg PO DAILY 12/12/16 04/22/17 Review of Systems - Physician Review All systems were reviewed & negative as marked: Yes - Review of Systems Constitutional: Normal Eyes: Normal ENT: Normal Respiratory: Normal Cardiovascular: Chest Pain Gastrointestinal: Normal Genitourinary Female: Normal Musculoskeletal: Normal Skin: Normal Neurological: Normal Endocrine: Normal Hemo/Lymphatic: Normal Psychiatric: Normal Physical Exam Vital Signs Reviewed: Yes Vital Signs Temp Pulse Resp BP Pulse Ox 07/03/17 02:43 97.8 F 84 17 135/80 97 Temperature: Afebrile Blood Pressure: Normal Pulse: Regular Respiratory Rate: Normal Appearance: Positive for: Well-Appearing, Non-Toxic, Comfortable Pain Distress: None Mental Status: Positive for: Alert and Oriented X 3 - Systems Exam Head: Present: Atraumatic, Normocephalic Pupils: Present: PERRL Extroacular Muscles: Present: EOMI Conjunctiva: Present: Normal Ears: Present: Normal Mouth: Present: Moist Mucous Membranes Pharnyx: Present: Normal Nose (External): Present: Atraumatic Nose (Internal): Present: Normal Inspection Neck: Present: Normal Range of Motion Respiratory/Chest: Present: Clear to Auscultation, Good Air Exchange Cardiovascular: Present: Regular Rate and Rhythm Abdomen: No: Tenderness, Distention, Normal Bowel Sounds, Peritoneal Signs, Rebound, Guarding, McBurney's Point Tender, Rovsing's Sign Present, Hernias, Feeding Tubes, Ostomy Tubes, Mass/Organomegaly, Scars, Other Back: Present: Normal Inspection Upper Extremity: Present: Normal Inspection Lower Extremity: Present: Normal Inspection Neurological: Present: GCS=15, CN II-XII Intact, Speech Normal, Motor Func Grossly Intact Skin: Present: Warm, Normal Color Psychiatric: Present: Alert, Oriented x 3, Normal Insight, Normal Concentration. No: Normal Affect, Normal Mood, Anxious, Agitated, Depressed Mood, Suicidal Ideation, Homicidal Ideation, Delusional, Hallucinations, Intoxicated, Lethargic, Other Medical Decision Making ED Course and Treatment: 52yoF, who states hypertension, alcohol abuse, cocaine abuse, and tobacco abuse , recent discharge [place] [facility] [place] pain. now here with mid-sternal chest pain, admitted alcohol use, but without nausea/vomiting/headache/dizziness/ difficulty breathing/abdomen pain/numbness/tingling/loss of limb function/pain with urination/thoughts to harm yourself or others or hallucinations. You were otherwise breathing easily, smiling, good strength/sensation, walking easily, clear lungs, no abdomen tenderness, no fever temp 97.8, stable heart rate 84, stable breathing rate 17, excellent oxygen level 97% room air, elevated blood pressure 135/80 which we recommend repeat in 2-3 days primary care office to determine further treatment, you have blood tests no infection count 5, stable blood level hemoglobin 13/platelets 203, heart blood test indeterminate 0.06, low risk of blood clot 203, alcohol mildly elevated 166 with observation, radiology chest xray initial no acute, ECG normal sinus rhythm, aspirin done in the ED with improvement, counselled to stop drinking. 07/03/17 02:37 07/03/17 04:17 07/03/17 04:18 07/03/17 04:19 07/03/17 04:19 07/03/17 04:20 07/03/17 05:58 d/w dr. jha and dr. licona for pt for obs. indeterminate trop 0.06, elevated ldh/ck-mb, etoh 166. - Lab Interpretations Lab Results: 07/03/17 02:35 07/03/17 02:35 Lab Results 07/03/17 02:35: Alcohol, Quantitative 166 H 07/03/17 02:35: Sodium 146, Potassium 3.5 L, Chloride 108 H, Carbon Dioxide 25, Anion Gap 16, BUN 12, Creatinine 0.8, Est GFR ( Amer) > 60, Est GFR (Non- Af Amer) > 60, Random Glucose 114 H, Calcium 9.8, Magnesium 1.8, Total Bilirubin 0.5, AST 44 H, ALT 37, Alkaline Phosphatase 79, Lactate Dehydrogenase 779 H, Total Creatine Kinase 420 H, CK-MB (CK-2) 4.8 H, CK-MB (CK-2) % Cancelled , Troponin I 0.06, NT-Pro-B Natriuret Pep 36.6, Total Protein 8.0, Albumin 4.4, Globulin 3.6, Albumin/Globulin Ratio 1.2 07/03/17 02:35: PT 11.6, INR 1.06, APTT 31.4, D-Dimer, Quantitative 203 07/03/17 02:35: WBC 5.1, RBC 3.95, Hgb 13.9, Hct 39.1, MCV 99.0, MCH 35.2 H, MCHC 35.5, RDW 12.4, Plt Count 203, MPV 9.5, Gran % 33.6 L, Lymph % (Auto) 55.2 H, [place] % (Auto) 6.5 H, Eos % (Auto) 4.3, Baso % (Auto) 0.4, Gran # 1.72, Lymph # 2.8, [place] # 0.3, Eos # 0.2, Baso # 0.02 I have reviewed the lab results: Yes - RAD Interpretation Radiology Orders: 07/03/17 03:49 CHEST TWO VIEWS (PA/LAT) [RAD] Stat - EKG Interpretation Interpreted by ED Physician: Yes (NSR, flipped t waves avr, v1, ) Type: 12 lead EKG Comparison: Similar to previous EKG (05/01/17) - Medication Orders Current Medication Orders: Discontinued Medications Aspirin (Aspirin) 325 mg PO STAT STA Stop: 07/03/17 02:33 Last Admin: 07/03/17 02:47 Dose: 325 mg Disposition/Present on Arrival - Present on Arrival Any Indicators Present on Arrival: No History of DVT/PE: No History of Uncontrolled Diabetes: No Urinary Catheter: No History of Decub. Ulcer: No History Surgical Site Infection Following: None - Disposition Have Diagnosis and Disposition been Completed?: Yes Diagnosis: Chest pain Disposition: HOSPITALIZED Disposition Time: 06:00 Patient Plan: Admission, Telemetry Patient Problems: Current Active Problems Problem Status Onset Chest pain Acute Condition: IMPROVED Discharge Instructions (ExitCare): Chest Pain (ED) Forms: [employer] ([place])
[2017-07-03 02:55] LABS: BASO # 0.02 K/mm3 (0.0-2.0); BASO % 0.4 % (0.0-3.0); EOS # 0.2 (0.0-0.7); EOS % 4.3 % (1.5-5.0); GRAN # 1.72 (1.4-6.5); GRAN % 33.6 % (50.0-68.0); HEMATOCRIT 39.1 % (36.0-48.0); LYMPH # 2.8 (1.2-3.4); LYMPH % 55.2 % (22.0-35.0); MEAN CORPUSCULAR HEMOGLOBIN 35.2 pg (25.0-35.0); MEAN CORPUSCULAR HGB CONC 35.5 g/dl (31.0-37.0); MEAN PLATELET VOLUME 9.5 fl (7.0-11.0); MONO # 0.3 (0.1-0.6); MONO % 6.5 % (1.0-6.0); RED CELL DISTRIBUTION WIDTH 12.4 % (11.5-14.5); WHITE BLOOD COUNT 5.1 10^3/ul (4.5-11.0)
[2017-07-03 03:04] LABS: ALB/GLOB RATIO 1.2 (1.1-1.8); ALKALINE PHOSPHATASE 79 U/L (38-126); ALT/SGPT 37 U/L (7-56); AST/SGOT 44 U/L (14-36); BILIRUBIN,TOTAL 0.5 mg/dL (0.2-1.3); BLOOD UREA NITROGEN 12 mg/dL (7-21); CALCIUM 9.8 mg/dL (8.4-10.5); CARBON DIOXIDE 25 mmol/L (21-33); CHLORIDE 108 mmol/L (98-107); GFR AFRICAN-AMERICAN > 60; GLUCOSE,RANDOM 114 mg/dL (70-110); MAGNESIUM 1.8 mg/dL (1.7-2.2); POTASSIUM 3.5 mmol/L (3.6-5.0); SODIUM 146 mmol/L (132-148)
[2017-07-03 03:11] LABS: TROPONIN I 0.06 ng/mL
[2017-07-03 03:14] LABS: INR 1.06 (0.93-1.08); PARTIAL THROMBOPLASTIN TIME 31.4 Seconds (25.1-36.5)
[2017-07-03] MEDS ORDERED: Potassium Chloride 40 mEq/30 ml LIQ UD PO ONE (06:01)
[2017-07-03] MEDS ORDERED: Magnesium Sulfate 2 GM in Sodium Chloride 0.9% 100 ML IVPB ONE (06:02)
[2017-07-03 06:41] LABS: URINE BILIRUBIN NEGATIVE (NEGATIVE); URINE BLOOD NEGATIVE (NEGATIVE); URINE GLUCOSE (UA) NEGATIVE (NEGATIVE); URINE KETONE NEGATIVE (NEGATIVE); URINE LEUKOCYTE ESTERASE TRACE Leu/uL (NEGATIVE); URINE PROTEIN TRACE mg/dL (<30 mg/dL); URINE UROBILINOGEN 0.2 E.U./dL (<1 E.U./dL)
[2017-07-03 06:51] LABS: URINE APPEARANCE CLEAR (CLEAR); URINE COLOR YELLOW (YELLOW)
[2017-07-03 06:56] LABS: URINE RBC 0 - 2 /hpf (0-2)
[2017-07-03 06:57] LABS: URINE BACTERIA RARE (NEG)
[2017-07-03] MEDS: Pantoprazole 40 mg EC Tab PO SCH (09:27)
[2017-07-03] MEDS: Symbicort 160-4.5 Mcg Inhaler (HOME MED) IH SCH (09:29)
--- NOTE | 2017-07-03 09:31 | RAD ---
HISTORY: chest pain COMPARISON: Chest radiograph dated 04/26/2017. TECHNIQUE: Chest PA and lateral FINDINGS: LUNGS: No active pulmonary disease. PLEURA: No significant pleural effusion identified. No pneumothorax apparent. CARDIOVASCULAR: Cardiomediastinal silhouette stably enlarged. OSSEOUS STRUCTURES: Degenerative changes. VISUALIZED UPPER ABDOMEN: Normal. OTHER FINDINGS: None. IMPRESSION: No active disease.
--- NOTE | 2017-07-03 10:29 | CARD ---
APPROVED REPORT EKG Measurement Heart [id number] [place] 150P56 [id number] <Conclusion> Normal sinus rhythm Nonspecific T wave abnormality and Prolonged QT are new
--- NOTE | 2017-07-03 12:49 | CARD ---
APPROVED REPORT EKG Measurement Heart [id number] [place] 156P56 [id number] <Conclusion> Normal sinus rhythm Nonspecific T wave abnormality Prolonged QT No change
[2017-07-03 12:54] LABS: CHOLESTEROL 196 mg/dL (130-200)
[2017-07-03] MEDS: Enoxaparin 30 mg Syringe SC SCH (13:52)
[2017-07-03] MEDS ORDERED: Multivitamin (MVI) 10 ML, Thiamine 100 MG, Folic Acid 1 MG in Sodium Chloride 0.9% 1,00... IV ONE (15:43)
--- NOTE | 2017-07-03 15:50 | CP.PCM.HP ---
<Tanvi Ervin - Last Filed: 07/03/17 15:51> History of Present Illness - History of Present Illness History of Present Illness: PGY-2 h&p for hospitalist service 52 yo female with PMH of HTN, alchol abuse, cocaine abuse and tobacco abuse presents with chest pain. Patient states that she has been having this pain intermittently for the past year. She states that pain is located at the center of her chest, describes it as sharp, not radiating to neck, arms or back. Patient was in [facility] about 3 weeks ago for similar pain. Patient states that they did a cardiac cath which was negative. She states when she was discharged she still had the pain but it was mild. Patient decided to come to ED because pain became worse, 03/22. Patient was discharged with new medication but was not able to fill the prescription. She states the pain is worse when she lays down, denies any other aggravating factors. She also reports cough with green sputum for past 1 week. Denies any fever, chills, sob, abd pain, n/v, diarrhea or constipation. PMD: [place] PMH: HTN, alchol abuse, cocaine abuse and tobacco abuse PSH: tubal ligation allergies: NKDA family history: mother heart failure, sister adn pedrito diabetes social history: smoker 2-3 cigarettes/day, occasional alcohol use, last drink last night 1 beer, denies current illicit including cocaine Present on Admission - Present on Admission Any Indicators Present on Admission: No Review of Systems - Constitutional Constitutional: absent: Chills, Fever, Headache, Lethargy, Weakness - EENT Eyes: absent: Change in Vision Nose/Mouth/Throat: absent: Nasal Congestion, Sore Throat - Cardiovascular Cardiovascular: Chest Pain. absent: Dyspnea, Pain Radiating to Arm/Neck/Jaw, Leg Edema, Palpitations - Respiratory Respiratory: Cough. absent: Dyspnea, Hemoptysis - Gastrointestinal Gastrointestinal: absent: Abdominal Pain, Constipation, Diarrhea, Nausea, Vomiting - Genitourinary Genitourinary: absent: Difficulty Urinating, Dysuria, Hematuria - Musculoskeletal Musculoskeletal: absent: Arthralgias, Back Pain, Numbness, Stiffness, Tingling - Integumentary Integumentary: absent: Pruritus, Rash, Skin Ulcer, Swelling, Wounds - Neurological Neurological: absent: Dizziness, Numbness, Focal Weakness, Headaches, Syncope, Tingling, Weakness - Hematologic/Lymphatic Hematologic: absent: Easy Bleeding, Easy Bruising Past Patient History - Infectious Disease Hx of Infectious Diseases: None - Past Social History Smoking Status: Light Smoker < 10 Cigarettes Daily - CARDIAC Hx Cardiac Disorders: Yes Hx Angina: Yes Hx Hypertension: Yes - PULMONARY Hx Respiratory Disorders: Yes Hx Bronchitis: Yes - NEUROLOGICAL Hx Neurological Disorder: No - HEENT Hx HEENT Problems: No - RENAL Hx Chronic Kidney Disease: No - ENDOCRINE/METABOLIC Hx Endocrine Disorders: No - HEMATOLOGICAL/ONCOLOGICAL Hx Blood Disorders: No - INTEGUMENTARY Hx Dermatological Problems: No - MUSCULOSKELETAL/RHEUMATOLOGICAL Hx Falls: Yes Hx Unsteady Gait: Yes - GASTROINTESTINAL Hx Gastrointestinal Disorders: No - GENITOURINARY/GYNECOLOGICAL Hx Genitourinary Disorders: No - PSYCHIATRIC Hx Anxiety: Yes Hx Depression: Yes - SURGICAL HISTORY Hx Cardiac Catheterization: Yes Other/Comment: Tubular ligation - ANESTHESIA Hx Anesthesia: No Meds Allergies/Adverse Reactions: Allergies Allergy/AdvReac Type Severity Reaction Status Date / Time No Known Allergies Allergy Verified 05/01/17 00:49 Physical Exam - Constitutional Appears: Well, No Acute Distress - Head Exam Head Exam: ATRAUMATIC, NORMAL INSPECTION, NORMOCEPHALIC - Eye Exam Eye Exam: EOMI, Normal appearance - ENT Exam ENT Exam: Mucous Membranes Moist - Respiratory Exam Respiratory Exam: Clear to Auscultation Bilateral, NORMAL BREATHING PATTERN. absent: Rhonchi, Wheezes, Respiratory Distress - Cardiovascular Exam Cardiovascular Exam: REGULAR RHYTHM. absent: Tachycardia, Diastolic murmur, Systolic Murmur - GI/Abdominal Exam GI & Abdominal Exam: Normal Bowel Sounds, Soft. absent: Distended, Firm, Guarding, Tenderness - Extremities Exam Extremities exam: Positive for: normal inspection. Negative for: pedal edema, tenderness - Back Exam Back exam: NORMAL INSPECTION - Neurological Exam Neurological exam: Alert, CN II-XII Intact, Oriented x3, Reflexes Normal - Skin Skin Exam: Dry, Intact, Normal Color, Warm Results - Vital Signs Recent Vital Signs: Last Vital Signs Temp 98.5 F 07/03/17 12:00 Pulse 78 07/03/17 14:00 Resp 18 07/03/17 12:00 BP 127/70 07/03/17 12:00 Pulse Ox 93 L 07/03/17 12:00 - Labs Result Diagrams: 07/03/17 02:35 07/03/17 02:35 Labs: Laboratory Results - last 24 hr 07/03/17 07/03/17 07/03/17 06:31 06:31 07:50 Troponin I 0.06 Triglycerides Cholesterol LDL Cholesterol Direct HDL Cholesterol Urine Color Yellow Urine Appearance Clear Urine pH 6.0 Ur Specific [place] 1.025 Urine Protein Trace H Urine Glucose (UA) Negative Urine Ketones Negative Urine Blood Negative Urine Nitrate Negative Urine Bilirubin Negative Urine Urobilinogen 0.2 Ur Leukocyte Esterase Trace H Urine RBC 0 - 2 Urine WBC 1 - 3 Ur Epithelial Cells 3 - 4 Urine Bacteria Rare Urine Opiates Screen Negative Urine Methadone Screen Negative Ur Barbiturates Screen Negative Ur Phencyclidine Scrn Negative Ur Amphetamines Screen Negative U Benzodiazepines Scrn Negative U Oth Cocaine Metabols Positive H U Cannabinoids Screen Negative 07/03/17 07/03/17 07:50 11:10 Troponin I 0.05 Triglycerides 112 Cholesterol 196 LDL Cholesterol Direct 70 HDL Cholesterol 91 H Urine Color Urine Appearance Urine pH Ur Specific [place] Urine Protein Urine Glucose (UA) Urine Ketones Urine Blood Urine Nitrate Urine Bilirubin Urine Urobilinogen Ur Leukocyte Esterase Urine RBC Urine WBC Ur Epithelial Cells Urine Bacteria Urine Opiates Screen Urine Methadone Screen Ur Barbiturates Screen Ur Phencyclidine Scrn Ur Amphetamines Screen U Benzodiazepines Scrn U Oth Cocaine Metabols U Cannabinoids Screen Assessment & Plan - Assessment and Plan (Free Text) Assessment: 52 yo female with PMH of HTN, alcohol abuse, cocaine abuse and tobacco abuse presents with chest pain rule out ACS. Plan: 1. chest pain - rule out acs - recent visit to [facility], requested records - urine drug screen positive for cocaine - troponins indeterminate - EKG reviewed unchanged from previous EKG on last admission - d-dimer within normal limits - give asa in ED will continue 81mg daily - lipid panel, will start statin therapy if needed - echo completed, pending offical read - cariology consult for chest pain with cocaine use 2. alchol withdrawl - positive for alcohol, currently not withdrawing - will start bananna bag - ativan 2mg q6 prn - CIWA protocol - will consider librium 3. hypokalemia - replaced - will continue to monitor, correct as needed 4. HTN - started on norvasc - will continue to monitor DVT ppx - SCD GI ppx- protonix Case reviewed with attending, Dr. Maddox <Kate Maddox - Last Filed: 07/03/17 16:08> Results - Vital Signs Recent Vital Signs: Last Vital Signs Temp 98.5 F 07/03/17 12:00 Pulse 78 07/03/17 14:00 Resp 18 07/03/17 12:00 BP 127/70 07/03/17 12:00 Pulse Ox 93 L 07/03/17 12:00 - Labs Result Diagrams: 07/03/17 02:35 07/03/17 02:35 Labs: Laboratory Results - last 24 hr 07/03/17 07/03/17 07/03/17 06:31 06:31 07:50 Troponin I 0.06 Triglycerides Cholesterol LDL Cholesterol Direct HDL Cholesterol Urine Color Yellow Urine Appearance Clear Urine pH 6.0 Ur Specific [place] 1.025 Urine Protein Trace H Urine Glucose (UA) Negative Urine Ketones Negative Urine Blood Negative Urine Nitrate Negative Urine Bilirubin Negative Urine Urobilinogen 0.2 Ur Leukocyte Esterase Trace H Urine RBC 0 - 2 Urine WBC 1 - 3 Ur Epithelial Cells 3 - 4 Urine Bacteria Rare Urine Opiates Screen Negative Urine Methadone Screen Negative Ur Barbiturates Screen Negative Ur Phencyclidine Scrn Negative Ur Amphetamines Screen Negative U Benzodiazepines Scrn Negative U Oth Cocaine Metabols Positive H U Cannabinoids Screen Negative 07/03/17 07/03/17 07:50 11:10 Troponin I 0.05 Triglycerides 112 Cholesterol 196 LDL Cholesterol Direct 70 HDL Cholesterol 91 H Urine Color Urine Appearance Urine pH Ur Specific [place] Urine Protein Urine Glucose (UA) Urine Ketones Urine Blood Urine Nitrate Urine Bilirubin Urine Urobilinogen Ur Leukocyte Esterase Urine RBC Urine WBC Ur Epithelial Cells Urine Bacteria Urine Opiates Screen Urine Methadone Screen Ur Barbiturates Screen Ur Phencyclidine Scrn Ur Amphetamines Screen U Benzodiazepines Scrn U Oth Cocaine Metabols U Cannabinoids Screen Attending/Attestation - Attestation I have personally seen and examined this patient.: Yes I have fully participated in the care of the patient.: Yes I have reviewed all pertinent clinical information: Yes Notes (Text): 07/03/17 16:05 52 year old female with past medical history of hypertension, alcohol abuse and substance (cocaine) abuse who presents with complaint of chest pain. Will obtain serial cardiac enzymes to rule out ACS. Cardiology evaluation is requested. Continue with aspirin. Lipid panel was ordered. Patient does report she had a recent cardiac cath which was negative. Will request for records from [facility]. UTox was positive for cocaine, although patient denies. Alcohol level was also elevated. Patient was counselled on risks of continued substance and alcohol abuse. Watch for withdrawal symptoms. Kate Maddox MD Hospitalist.
--- NOTE | 2017-07-03 23:16 | CON ---
CARDIOLOGY CONSULTATION DATE: HISTORY OF PRESENT ILLNESS: The patient is a 52-year-old female who has a history of hypertension, cocaine, and alcohol abuse and is a smoker who was recently admitted to [facility] because of chest pain. She presented because recurring chest pain following cocaine abuse. The patient appears depressed and crying. SOCIAL HISTORY: The patient is a smoker, drinker, cocaine abuser, and homeless. MEDICATIONS: Aspirin 81 mg once a day, Norvasc 5 mg once a day, and Protonix 40 mg twice a day. REVIEW OF SYSTEMS: No fever or chills. No nausea or vomiting. PHYSICAL EXAMINATION: GENERAL: The patient is a middle-aged female who does not appear to be in any distress. VITAL SIGNS: Blood pressure 127/70, heart rate 87, temperature 98.5, and respirations 18. HEENT: Normocephalic. NECK: No JVD. CHEST: Bilateral rhonchi. HEART: S1 and S2 regular. EXTREMITIES: No edema. LABORATORY DATA: Urine toxicology screen is positive for cocaine. Alcohol is 166. SMA-7 is within normal limits except for glucose of 114. Potassium 3.5 and chloride 108. Three sets of troponin were 0.06, 0.06, and 0.05. Lipid profile is within normal limits except for HDL cholesterol of 91. PT/PTT and D-dimer are within normal limits. Hemoglobin and hematocrit, white count, and platelet count are within normal limits. EKG revealed sinus rhythm, nonspecific Q-wave abnormality, and prolonged QT interval. ASSESSMENT: 1. Chest pain, status post cocaine abuse. 2. Hypertension. 3. Depression. 4. Hypokalemia. RECOMMENDATIONS: Continue aspirin 81 mg once a day and Norvasc 5 mg once a day. The patient did receive both magnesium and potassium replacement. Consider Psychiatry evaluation. Start Lovenox 30 mg subcutaneously once a day. Jerry Scales MD
[2017-07-04 07:17] LABS: ALB/GLOB RATIO 1.1 (1.1-1.8); ALKALINE PHOSPHATASE 86 U/L (38-126); ALT/SGPT 27 U/L (7-56); AST/SGOT 33 U/L (14-36); BILIRUBIN,TOTAL 0.4 mg/dL (0.2-1.3); BLOOD UREA NITROGEN 17 mg/dL (7-21); CALCIUM 8.7 mg/dL (8.4-10.5); CARBON DIOXIDE 26 mmol/L (21-33); CHLORIDE 107 mmol/L (98-107); GFR AFRICAN-AMERICAN > 60; GLUCOSE,RANDOM 88 mg/dL (70-110); POTASSIUM 3.9 mmol/L (3.6-5.0); SODIUM 140 mmol/L (132-148); TOTAL PROTEIN 6.3 g/dL (5.8-8.3)
[2017-07-04 07:27] LABS: BASO # 0.02 K/mm3 (0.0-2.0); BASO % 0.5 % (0.0-3.0); EOS # 0.1 (0.0-0.7); EOS % 3.4 % (1.5-5.0); GRAN # 1.68 (1.4-6.5); GRAN % 41.3 % (50.0-68.0); HEMATOCRIT 35.8 % (36.0-48.0); LYMPH # 1.8 (1.2-3.4); LYMPH % 44.5 % (22.0-35.0); MEAN CELL VOLUME 100.3 fl (80.0-105.0); MEAN CORPUSCULAR HEMOGLOBIN 33.9 pg (25.0-35.0); MEAN CORPUSCULAR HGB CONC 33.8 g/dl (31.0-37.0); MEAN PLATELET VOLUME 9.9 fl (7.0-11.0); MONO # 0.4 (0.1-0.6); MONO % 10.3 % (1.0-6.0); RED CELL DISTRIBUTION WIDTH 12.4 % (11.5-14.5); WHITE BLOOD COUNT 4.1 10^3/ul (4.5-11.0)
--- NOTE | 2017-07-04 08:56 | CARD ---
APPROVED REPORT EXAM: Two-dimensional and M-mode echocardiogram with Doppler and color Doppler. Other Information Quality : GoodRhythm : INDICATION Chest Pain R/O ACS 2D DIMENSIONS Left Atrium (2D)4.2 (1.6-4.0cm)IVSd1.3 (0.7-1.1cm) LVDd5.2 (3.9-5.9cm)PWd1.3 (0.7-1.1cm) LVDs3.8 (2.5-4.0cm)FS (%) 26.2 % LVEF (%)51.0 (>50%) M-Mode DIMENSIONS Aortic Root3.20 (2.2-3.7cm)Aortic Cusp Exc.1.90 (1.5-2.0cm) Aortic Valve AoV Peak Cuwdvbnr864.0cm/s Mitral Valve MV E Hbqalntj44.4cm/sMV A Roodejgm07.1cm/sE/A ratio1.2 TDI Lateral E' Peak V9.52cm/sMedial E' Peak V7.80cm/sE/Lateral E'8.9 E/Medial E'10.8 Pulmonary Valve PV Peak Doreduzh18.0cm/sPV Peak Grad.2mmHg Tricuspid Valve TR Peak [id number]/sRAP [id number] Peak Gr.29mmHg [id number] LEFT VENTRICLE The left ventricle is normal size. There is mild concentric left ventricular hypertrophy. The left ventricular function is normal. The left ventricular ejection fraction is within the normal range. There is normal LV segmental wall motion. RIGHT VENTRICLE The right ventricle is normal size. ATRIA The left atrium is mildly dilated. The right atrium size is normal. The interatrial septum is intact with no evidence for an atrial septal defect. AORTIC VALVE The aortic valve is normal in structure. MITRAL VALVE The mitral valve is normal in structure. Mitral regurgitation is trace. TRICUSPID VALVE The tricuspid valve is normal in structure. There is trace tricuspid regurgitation. GREAT VESSELS The aortic root is normal in size. PERICARDIAL EFFUSION There is no pericardial effusion. <Conclusion> The left ventricle is normal size. There is mild concentric left ventricular hypertrophy. The left ventricular function is normal.
[2017-07-04] MEDS: Enoxaparin 30 mg Syringe SC SCH (10:37)
[2017-07-04] MEDS: Pantoprazole 40 mg EC Tab PO SCH (10:37)
[2017-07-04 10:42] VITALS: BP 138/99; PULSE 64
[2017-07-04] MEDS: Symbicort 160-4.5 Mcg Inhaler (HOME MED) IH SCH (10:42)
[2017-07-04 12:32] VITALS: RESP 18; TEMP 98.1; O2SAT 100
--- NOTE | 2017-07-04 17:07 | CP.PCM.DIS ---
<Meghan Soares - Last Filed: 07/04/17 17:05> Provider - Provider Date of Admission: 07/03/17 05:54 Attending physician: Kate Maddox MD Primary care physician: Kalia Galeano Consults: cardio Yordy Time Spent in preparation of Discharge (in minutes): 35 Diagnosis - Discharge Diagnosis (1) Cocaine abuse Status: Acute (2) Alcohol intoxication Status: Acute (3) Chest pain Status: Acute Hospital Course - Lab Results Lab Results: Micro Results 07/03/17 09:30 Urine,Clean Catch Urine Culture - Final No Growth (<1,000 CFU/ML) Most Recent Lab Values WBC 4.1 10^3/ul (4.5-11.0) L 07/04/17 06:00 RBC 3.57 10^6/uL (3.5-6.1) 07/04/17 06:00 Hgb 12.1 g/dL (12.0-16.0) 07/04/17 06:00 Hct 35.8 % (36.0-48.0) L 07/04/17 06:00 MCV 100.3 fl (80.0-105.0) 07/04/17 06:00 MCH 33.9 pg (25.0-35.0) 07/04/17 06:00 MCHC 33.8 g/dl (31.0-37.0) 07/04/17 06:00 RDW 12.4 % (11.5-14.5) 07/04/17 06:00 Plt Count 165 10^3/uL (120.0-450.0) 07/04/17 06:00 MPV 9.9 fl (7.0-11.0) 07/04/17 06:00 Gran % 41.3 % (50.0-68.0) L 07/04/17 06:00 Lymph % (Auto) 44.5 % (22.0-35.0) H 07/04/17 06:00 [place] % (Auto) 10.3 % (1.0-6.0) H 07/04/17 06:00 Eos % (Auto) 3.4 % (1.5-5.0) 07/04/17 06:00 Baso % (Auto) 0.5 % (0.0-3.0) 07/04/17 06:00 Gran # 1.68 (1.4-6.5) 07/04/17 06:00 Lymph # 1.8 (1.2-3.4) 07/04/17 06:00 [place] # 0.4 (0.1-0.6) 07/04/17 06:00 Eos # 0.1 (0.0-0.7) 07/04/17 06:00 Baso # 0.02 K/mm3 (0.0-2.0) 07/04/17 06:00 PT 11.6 SECONDS (9.4-12.5) 07/03/17 02:35 INR 1.06 (0.93-1.08) 07/03/17 02:35 APTT 31.4 Seconds (25.1-36.5) 07/03/17 02:35 D-Dimer, Quantitative 203 ng/mL (0-243) 07/03/17 02:35 Sodium 140 mmol/L (132-148) 07/04/17 06:00 Potassium 3.9 mmol/L (3.6-5.0) 07/04/17 06:00 Chloride 107 mmol/L (98-107) 07/04/17 06:00 Carbon Dioxide 26 mmol/L (21-33) 07/04/17 06:00 Anion Gap 11 (10-20) 07/04/17 06:00 BUN 17 mg/dL (7-21) 07/04/17 06:00 Creatinine 0.9 mg/dl (0.7-1.2) 07/04/17 06:00 Est GFR ( Amer) > 60 07/04/17 06:00 Est GFR (Non-Af Amer) > 60 07/04/17 06:00 Random Glucose 88 mg/dL (70-110) 07/04/17 06:00 Calcium 8.7 mg/dL (8.4-10.5) 07/04/17 06:00 Magnesium 1.8 mg/dL (1.7-2.2) 07/03/17 02:35 Total Bilirubin 0.4 mg/dL (0.2-1.3) 07/04/17 06:00 AST 33 U/L (14-36) 07/04/17 06:00 ALT 27 U/L (7-56) 07/04/17 06:00 Alkaline Phosphatase 86 U/L (38-126) 07/04/17 06:00 Lactate Dehydrogenase 779 U/L (333-699) H 07/03/17 02:35 Total Creatine Kinase 420 U/L (35-230) H 07/03/17 02:35 CK-MB (CK-2) 4.8 ng/mL (0.0-3.6) H 07/03/17 02:35 CK-MB (CK-2) % Cancelled 07/03/17 02:35 Troponin I 0.05 ng/mL 07/03/17 11:10 NT-Pro-B Natriuret Pep 36.6 pg/mL (0-450) 07/03/17 02:35 Total Protein 6.3 g/dL (5.8-8.3) 07/04/17 06:00 Albumin 3.3 g/dL (3.0-4.8) 07/04/17 06:00 Globulin 2.9 gm/dL 07/04/17 06:00 Albumin/Globulin Ratio 1.1 (1.1-1.8) 07/04/17 06:00 Triglycerides 112 mg/dL (35-160) 07/03/17 07:50 Cholesterol 196 mg/dL (130-200) 07/03/17 07:50 LDL Cholesterol Direct 70 mg/dL (0-129) 07/03/17 07:50 HDL Cholesterol 91 mg/dL (29-60) H 07/03/17 07:50 Urine Color Yellow (YELLOW) 07/03/17 06:31 Urine Appearance Clear (CLEAR) 07/03/17 06:31 Urine pH 6.0 (4.7-8.0) 07/03/17 06:31 Ur Specific [place] 1.025 (1.005-1.035) 07/03/17 06:31 Urine Protein Trace mg/dL (<30 mg/dL) H 07/03/17 06:31 Urine Glucose (UA) Negative mg/dL (NEGATIVE) 07/03/17 06:31 Urine Ketones Negative mg/dL (NEGATIVE) 07/03/17 06:31 Urine Blood Negative (NEGATIVE) 07/03/17 06:31 Urine Nitrate Negative (NEGATIVE) 07/03/17 06:31 Urine Bilirubin Negative (NEGATIVE) 07/03/17 06:31 Urine Urobilinogen 0.2 E.U./dL (<1 E.U./dL) 07/03/17 06:31 Ur Leukocyte Esterase Trace Swapnil/uL (NEGATIVE) H 07/03/17 06:31 Urine RBC 0 - 2 /hpf (0-2) 07/03/17 06:31 Urine WBC 1 - 3 /hpf (0-6) 07/03/17 06:31 Ur Epithelial Cells 3 - 4 /hpf (0-5) 07/03/17 06:31 Urine Bacteria Rare (NEG) 07/03/17 06:31 Urine Opiates Screen Negative (NEGATIVE) 07/03/17 06:31 Urine Methadone Screen Negative (NEGATIVE) 07/03/17 06:31 Ur Barbiturates Screen Negative (NEGATIVE) 07/03/17 06:31 Ur Phencyclidine Scrn Negative (NEGATIVE) 07/03/17 06:31 Ur Amphetamines Screen Negative (NEGATIVE) 07/03/17 06:31 U Benzodiazepines Scrn Negative (NEGATIVE) 07/03/17 06:31 U Oth Cocaine Metabols Positive (NEGATIVE) H 07/03/17 06:31 U Cannabinoids Screen Negative (NEGATIVE) 07/03/17 06:31 Alcohol, Quantitative 166 mg/dL (0-10) H 07/03/17 02:35 - Hospital Course Hospital Course: 52 yo female with PMH of HTN, alchol abuse, cocaine abuse and tobacco abuse presents with chest pain. Patient states that she has been having this pain intermittently for the past year. She states that pain is located at the center of her chest, describes it as sharp, not radiating to neck, arms or back. Patient was in [facility] about 3 weeks ago for similar pain. Patient states that they did a cardiac cath which was negative. She states when she was discharged she still had the pain but it was mild. Patient decided to come to ED because pain became worse, 03/22. Denies any fever, chills, sob, abd pain, n/v, diarrhea or constipation. CXR showed mild cardiomegaly, troponins were indeterminate ( 0.05->0.06->0.06). Urine drug screen was positive for cocaine. Cardiology (Dr Scales) was consulted and recommended daily baby ASA and Norvasc. Echocardiogram showed normal EF and mild LVH. Patient did not require any Ativan for alcohol withdrawal during the hospital stay. Since patient had recent cardiac cath, no other intervention were recommended by Cardiology. Patient advised to stop using drugs and alcohol. Patient agreed to the above. Patient discharged on Norvasc 5 mg PO daily (as she ran out of her medication at home). Discharge Exam - Head Exam Head Exam: ATRAUMATIC, NORMAL INSPECTION, NORMOCEPHALIC - Additional Findings Additional findings: - Constitutional Appears: Well, No Acute Distress - Head Exam Head Exam: ATRAUMATIC, NORMAL INSPECTION, NORMOCEPHALIC - Eye Exam Eye Exam: EOMI, Normal appearance - ENT Exam ENT Exam: Mucous Membranes Moist - Respiratory Exam Respiratory Exam: Clear to Auscultation Bilateral, NORMAL BREATHING PATTERN. absent: Rhonchi, Wheezes, Respiratory Distress - Cardiovascular Exam Cardiovascular Exam: REGULAR RHYTHM. absent: Tachycardia, Diastolic murmur, Systolic Murmur - GI/Abdominal Exam GI & Abdominal Exam: Normal Bowel Sounds, Soft. absent: Distended, Firm, Guarding, Tenderness - Extremities Exam Extremities exam: Positive for: normal inspection. Negative for: pedal edema, tenderness - Back Exam Back exam: NORMAL INSPECTION - Neurological Exam Neurological exam: Alert, CN II-XII Intact, Oriented x3, Reflexes Normal - Skin Skin Exam: Dry, Intact, Normal Color, Warm Discharge Plan - Discharge Medications Prescriptions: amLODIPine [Norvasc] 5 mg PO DAILY 30 Days tab - Follow Up Plan Condition: IMPROVED Disposition: HOME/ ROUTINE Patient education suggested?: Yes Instructions: Chest Pain (DC), Chest Pain (GEN), Cocaine Abuse (DC), Alcohol Intoxication (DC) Additional Instructions: - Please follow up with PMD Dr Galeano within 1 week. - Return to the hospital if any symptoms. Referrals: Kalia Galeano MD [Primary Care Provider] - <Kate Maddox - Last Filed: 07/04/17 17:23> Provider - Provider Date of Admission: 07/03/17 05:54 Attending physician: Kate Maddox MD Primary care physician: Kalia Galeano [facility] Hospital Course - Lab Results Lab Results: Micro Results 07/03/17 09:30 Urine,Clean Catch Urine Culture - Final No Growth (<1,000 CFU/ML) Most Recent Lab Values WBC 4.1 10^3/ul (4.5-11.0) L 07/04/17 06:00 RBC 3.57 10^6/uL (3.5-6.1) 07/04/17 06:00 Hgb 12.1 g/dL (12.0-16.0) 07/04/17 06:00 Hct 35.8 % (36.0-48.0) L 07/04/17 06:00 MCV 100.3 fl (80.0-105.0) 07/04/17 06:00 MCH 33.9 pg (25.0-35.0) 07/04/17 06:00 MCHC 33.8 g/dl (31.0-37.0) 07/04/17 06:00 RDW 12.4 % (11.5-14.5) 07/04/17 06:00 Plt Count 165 10^3/uL (120.0-450.0) 07/04/17 06:00 MPV 9.9 fl (7.0-11.0) 07/04/17 06:00 Gran % 41.3 % (50.0-68.0) L 07/04/17 06:00 Lymph % (Auto) 44.5 % (22.0-35.0) H 07/04/17 06:00 [place] % (Auto) 10.3 % (1.0-6.0) H 07/04/17 06:00 Eos % (Auto) 3.4 % (1.5-5.0) 07/04/17 06:00 Baso % (Auto) 0.5 % (0.0-3.0) 07/04/17 06:00 Gran # 1.68 (1.4-6.5) 07/04/17 06:00 Lymph # 1.8 (1.2-3.4) 07/04/17 06:00 [place] # 0.4 (0.1-0.6) 07/04/17 06:00 Eos # 0.1 (0.0-0.7) 07/04/17 06:00 Baso # 0.02 K/mm3 (0.0-2.0) 07/04/17 06:00 PT 11.6 SECONDS (9.4-12.5) 07/03/17 02:35 INR 1.06 (0.93-1.08) 07/03/17 02:35 APTT 31.4 Seconds (25.1-36.5) 07/03/17 02:35 D-Dimer, Quantitative 203 ng/mL (0-243) 07/03/17 02:35 Sodium 140 mmol/L (132-148) 07/04/17 06:00 Potassium 3.9 mmol/L (3.6-5.0) 07/04/17 06:00 Chloride 107 mmol/L (98-107) 07/04/17 06:00 Carbon Dioxide 26 mmol/L (21-33) 07/04/17 06:00 Anion Gap 11 (10-20) 07/04/17 06:00 BUN 17 mg/dL (7-21) 07/04/17 06:00 Creatinine 0.9 mg/dl (0.7-1.2) 07/04/17 06:00 Est GFR ( Amer) > 60 07/04/17 06:00 Est GFR (Non-Af Amer) > 60 07/04/17 06:00 Random Glucose 88 mg/dL (70-110) 07/04/17 06:00 Calcium 8.7 mg/dL (8.4-10.5) 07/04/17 06:00 Magnesium 1.8 mg/dL (1.7-2.2) 07/03/17 02:35 Total Bilirubin 0.4 mg/dL (0.2-1.3) 07/04/17 06:00 AST 33 U/L (14-36) 07/04/17 06:00 ALT 27 U/L (7-56) 07/04/17 06:00 Alkaline Phosphatase 86 U/L (38-126) 07/04/17 06:00 Lactate Dehydrogenase 779 U/L (333-699) H 07/03/17 02:35 Total Creatine Kinase 420 U/L (35-230) H 07/03/17 02:35 CK-MB (CK-2) 4.8 ng/mL (0.0-3.6) H 07/03/17 02:35 CK-MB (CK-2) % Cancelled 07/03/17 02:35 Troponin I 0.05 ng/mL 07/03/17 11:10 NT-Pro-B Natriuret Pep 36.6 pg/mL (0-450) 07/03/17 02:35 Total Protein 6.3 g/dL (5.8-8.3) 07/04/17 06:00 Albumin 3.3 g/dL (3.0-4.8) 07/04/17 06:00 Globulin 2.9 gm/dL 07/04/17 06:00 Albumin/Globulin Ratio 1.1 (1.1-1.8) 07/04/17 06:00 Triglycerides 112 mg/dL (35-160) 07/03/17 07:50 Cholesterol 196 mg/dL (130-200) 07/03/17 07:50 LDL Cholesterol Direct 70 mg/dL (0-129) 07/03/17 07:50 HDL Cholesterol 91 mg/dL (29-60) H 07/03/17 07:50 Urine Color Yellow (YELLOW) 07/03/17 06:31 Urine Appearance Clear (CLEAR) 07/03/17 06:31 Urine pH 6.0 (4.7-8.0) 07/03/17 06:31 Ur Specific [place] 1.025 (1.005-1.035) 07/03/17 06:31 Urine Protein Trace mg/dL (<30 mg/dL) H 07/03/17 06:31 Urine Glucose (UA) Negative mg/dL (NEGATIVE) 07/03/17 06:31 Urine Ketones Negative mg/dL (NEGATIVE) 07/03/17 06:31 Urine Blood Negative (NEGATIVE) 07/03/17 06:31 Urine Nitrate Negative (NEGATIVE) 07/03/17 06:31 Urine Bilirubin Negative (NEGATIVE) 07/03/17 06:31 Urine Urobilinogen 0.2 E.U./dL (<1 E.U./dL) 07/03/17 06:31 Ur Leukocyte Esterase Trace Swapnil/uL (NEGATIVE) H 07/03/17 06:31 Urine RBC 0 - 2 /hpf (0-2) 07/03/17 06:31 Urine WBC 1 - 3 /hpf (0-6) 07/03/17 06:31 Ur Epithelial Cells 3 - 4 /hpf (0-5) 07/03/17 06:31 Urine Bacteria Rare (NEG) 07/03/17 06:31 Urine Opiates Screen Negative (NEGATIVE) 07/03/17 06:31 Urine Methadone Screen Negative (NEGATIVE) 07/03/17 06:31 Ur Barbiturates Screen Negative (NEGATIVE) 07/03/17 06:31 Ur Phencyclidine Scrn Negative (NEGATIVE) 07/03/17 06:31 Ur Amphetamines Screen Negative (NEGATIVE) 07/03/17 06:31 U Benzodiazepines Scrn Negative (NEGATIVE) 07/03/17 06:31 U Oth Cocaine Metabols Positive (NEGATIVE) H 07/03/17 06:31 U Cannabinoids Screen Negative (NEGATIVE) 07/03/17 06:31 Alcohol, Quantitative 166 mg/dL (0-10) H 07/03/17 02:35 Attending/Attestation - Attestation I have personally seen and examined this patient.: Yes I have fully participated in the care of the patient.: Yes I have reviewed all pertinent clinical information, including history, physical exam and plan: Yes Notes (Text): 07/04/17 17:17 52 year old female with past medical history of hypertension, alcohol abuse and substance abuse who presented with complaint of chest pain. Serial cardiac enzymes were negative and ACS was ruled out. Her chest pain has resolved. She reported she had a recent negative cardiac cath at [facility]. She was seen by cardiology. UTox was positive for cocaine, although patient denied. Alcohol level was also elevated but she did not exhibit withdrawal symptoms. Patient is discharged home to follow up with pmd. Patient was counselled on risks of continued substance and alcohol abuse. Kate Maddox MD Hospitalist.
== END 2017-07-04 13:36 | disposition home or self-care (01) ==
LOC: ED 02:17 → ERH 05:54 → 3RSO 07:14
PROVIDERS: ADMIT Internal Medicine; ATTEND Internal Medicine
DX: R07.9 Chest pain, unspecified (principal); F10.129 Alcohol abuse with intoxication, unspecified; F14.10 Cocaine abuse, uncomplicated; E87.6 Hypokalemia; F17.200 Nicotine dependence, unspecified, uncomplicated; Z59.0 Homelessness; F32.89 Other specified depressive episodes; I11.9 Hypertensive heart disease without heart failure; I51.7 Cardiomegaly; Z79.899 Other long term (current) drug therapy; Z82.49 Family history of ischemic heart disease and other diseases of the circulatory system; Z83.3 Family history of diabetes mellitus
CPT/HCPCS: 36415; 71020; 80053; 80061; 81001; 82550; 82553; 83615; 83735; 83880; 84484; 85025; 85378; 85610; 85730; 87086; 93005; 93306; 96365; 96372; 96375; 99285; G0378; G0480; J1650; J3411; J3475; J3480; J7040

== ENCOUNTER 2017-08-29 03:22 | Observation (INO) | payer MEDICARE, OTHER ==
[2017-08-29 03:22] VITALS: BMI 38.0
--- NOTE | 2017-08-29 04:06 | ED PDOC ---
Arrival/HPI - General Chief Complaint: Chest Pain Time Seen by Provider: 08/29/17 03:36 Historian: Patient - History of Present Illness Narrative History of Present Illness (Text): 08/29/17 04:06 A 52 year old female, whose past medical history includes hypertension, presents to the emergency department complaining of midsternal chest discomfort since this morning. Patient denies any fever, chills, nausea, vomiting, abdominal pain, shortness of breath or any other complaints. Time/Duration: Other (this morning) Past Medical History - Provider Review Nursing Documentation Reviewed: Yes - Infectious Disease Hx of Infectious Diseases: None - Cardiac Hx Cardiac Disorders: Yes Hx Angina: Yes Hx Hypertension: Yes - Pulmonary Hx Respiratory Disorders: Yes Hx Bronchitis: Yes - Neurological Hx Neurological Disorder: No - HEENT Hx HEENT Disorder: No - Renal Hx Renal Disorder: No - Endocrine/Metabolic Hx Endocrine Disorders: No - Hematological/Oncological Hx Blood Disorders: No - Integumentary Hx Dermatological Disorder: No - Musculoskeletal/Rheumatological Hx Falls: Yes Hx Unsteady Gait: Yes - Gastrointestinal Hx Gastrointestinal Disorders: No - Genitourinary/Gynecological Hx Genitourinary Disorders: No - Psychiatric Hx Anxiety: Yes Hx Depression: Yes Hx Substance Use: Yes (clean 18 yrs as per pt cocaine) - Surgical History Hx Cardiac Catheterization: Yes Other/Comment: Tubal ligation - Anesthesia Hx Anesthesia: Yes Hx Anesthesia Reactions: No Hx Malignant Hyperthermia: No Family/Social History - Physician Review Nursing Documentation Reviewed: Yes Family/Social History: No Known Family HX Smoking Status: Light Smoker < 10 Cigarettes Daily Hx Alcohol Use: Yes (beer last night) Hx Substance Use: Yes (clean 18 yrs as per pt cocaine) Allergies/Home Meds Allergies/Adverse Reactions: Allergies No Known Allergies Allergy (Verified 05/01/17 00:49) Home Medications: Home Meds Medication Instructions Recorded Confirmed Budesonide/Formoterol Fumarate 2 puff IH DAILY 12/12/16 04/22/17 [Symbicort 160-4.5 Mcg Inhaler] Review of Systems - Physician Review All systems were reviewed & negative as marked: Yes - Review of Systems Constitutional: absent: Fevers, Night Sweats Respiratory: absent: SOB Cardiovascular: Chest Pain Gastrointestinal: absent: Abdominal Pain, Nausea, Vomiting Physical Exam Vital Signs Temp Pulse Pulse Resp BP Pulse Ox 08/29/17 03:22 98.4 F 81 83 18 138/74 97 Appearance: Positive for: Well-Appearing, Non-Toxic, Comfortable Pain Distress: None Mental Status: Positive for: Alert and Oriented X 3 - Systems Exam Head: Present: Atraumatic, Normocephalic Pupils: Present: PERRL Extroacular Muscles: Present: EOMI Conjunctiva: Present: Normal Mouth: Present: Moist Mucous Membranes Neck: Present: Normal Range of Motion Respiratory/Chest: Present: Clear to Auscultation, Good Air Exchange. No: Respiratory Distress, Accessory Muscle Use Cardiovascular: Present: Regular Rate and Rhythm, Normal S1, S2. No: Murmurs Abdomen: Present: Normal Bowel Sounds. No: Tenderness, Distention, Peritoneal Signs Back: Present: Normal Inspection Upper Extremity: Present: Normal Inspection. No: Cyanosis, Edema Lower Extremity: Present: Normal Inspection. No: Edema Neurological: Present: GCS=15, CN II-XII Intact, Speech Normal Skin: Present: Warm, Dry, Normal Color. No: Rashes Psychiatric: Present: Alert, Oriented x 3, Normal Insight, Normal Concentration Medical Decision Making ED Course and Treatment: 08/29/17 04:06 Impression: A 52 year old female with midsternal chest discomfort Plan: -- Chest xray -- EKG -- Labs -- Aspirin -- Reassess and disposition Progress Notes: EKG shows NST at 77 BPM with prolonged QT, nonspecific ST/T changes. Interpreted by me. Chest xray read and interpreted by me shows no acute process. 08/29/17 05:32 Case discussed with resident and hospitalist Dr. Serna, who accepts admission to his service. Patient aware of and in agreement with plan. - Lab Interpretations Lab Results: 08/29/17 03:55 08/29/17 03:55 Lab Results 08/29/17 03:55: PT 10.9, INR 0.96, APTT 29.9 08/29/17 03:55: WBC 4.6, RBC 3.70, Hgb 12.4, Hct 36.3, MCV 98.1, MCH 33.5, MCHC 34.2, RDW 12.3, Plt Count 252, MPV 9.3 08/29/17 03:55: Sodium 147, Potassium 3.9, Chloride 108 H, Carbon Dioxide 26, Anion Gap 17, BUN 14, Creatinine 0.7, Est GFR ( Amer) > 60, Est GFR (Non- Af Amer) > 60, Random Glucose 93, Calcium 9.5, Total Bilirubin 0.4, AST 40 H D, ALT 32, Alkaline Phosphatase 106, Lactate Dehydrogenase 807 H, Total Creatine Kinase 440 H, CK-MB (CK-2) 4.1 H, CK-MB (CK-2) % Cancelled, Troponin I 0.04, Total Protein 7.7, Albumin 4.1, Globulin 3.6, Albumin/Globulin Ratio 1.2 I have reviewed the lab results: Yes - RAD Interpretation Radiology Orders: 08/29/17 04:09 CHEST PORTABLE [RAD] Stat - Medication Orders Current Medication Orders: Discontinued Medications Aspirin (Aspirin) 325 mg PO ONCE STA Stop: 08/29/17 04:12 Last Admin: 08/29/17 04:28 Dose: 325 mg - Scribe Statement The provider has reviewed the documentation as recorded by the Candy Winslow Provider Scribe Attestation: All medical record entries made by the Liliyaibamanda were at my direction and personally dictated by me. I have reviewed the chart and agree that the record accurately reflects my personal performance of the history, physical exam, medical decision making, and the department course for this patient. I have also personally directed, reviewed, and agree with the discharge instructions and disposition. Disposition/Present on Arrival - Present on Arrival Any Indicators Present on Arrival: No History of DVT/PE: No History of Uncontrolled Diabetes: No Urinary Catheter: No History of Decub. Ulcer: No History Surgical Site Infection Following: None - Disposition Have Diagnosis and Disposition been Completed?: Yes Diagnosis: Chest pain Disposition: HOSPITALIZED Disposition Time: 05:31 Patient Plan: Observation Patient Problems: Current Active Problems Problem Status Onset Chest pain Acute Condition: STABLE Discharge Instructions (ExitCare): Chest Pain (ED) Forms: Clickable ([place]e)
[2017-08-29 04:29] LABS: ALB/GLOB RATIO 1.2 (1.1-1.8); ALBUMIN 4.1 g/dL (3.0-4.8); ALT/SGPT 32 U/L (7-56); AST/SGOT 40 U/L (14-36); BLOOD UREA NITROGEN 14 mg/dL (7-21); CALCIUM 9.5 mg/dL (8.4-10.5); GFR AFRICAN-AMERICAN > 60; GFR NON-AFRICAN AMERICAN > 60
[2017-08-29 04:38] LABS: HEMOGLOBIN 12.4 g/dL (12.0-16.0); MEAN CELL VOLUME 98.1 fl (80.0-105.0); MEAN CORPUSCULAR HEMOGLOBIN 33.5 pg (25.0-35.0); MEAN CORPUSCULAR HGB CONC 34.2 g/dl (31.0-37.0); MEAN PLATELET VOLUME 9.3 fl (7.0-11.0); RBC 3.7 10^6/uL (3.5-6.1); RED CELL DISTRIBUTION WIDTH 12.3 % (11.5-14.5); WHITE BLOOD COUNT 4.6 10^3/ul (4.5-11.0)
[2017-08-29 04:42] LABS: TROPONIN I 0.04 ng/mL
[2017-08-29 04:47] LABS: INR 0.96 (0.93-1.08); PARTIAL THROMBOPLASTIN TIME 29.9 Seconds (25.1-36.5); PROTHROMBIN TIME 10.9 SECONDS (9.4-12.5)
[2017-08-29 05:18] LABS: CK-MB 4.1 ng/mL (0.0-3.6)
--- NOTE | 2017-08-29 06:06 | CP.PCM.HP ---
<Nida Lim - Last Filed: 08/29/17 06:19> History of Present Illness - History of Present Illness History of Present Illness: Patient is a 52 year old female with a PMHx of HTN, Bronchitis, VT, and Cocaine abuse who presents complaining of 9/10, sharp, substernal, non-radiating, reproducible chest pain since early this morning. Patient denies any triggering factors. She denies any fevers, chills, SOB, palpitations, abdominal pain, Lightheadedness, dizziness, motor/sensory loss, nausea, vomiting , changes in bowel habits, or urinary symptoms. Per patient, she had an VT two months ago. A diagnostic catherization was performed at that time and showed no blockage. Patient has been to [facility] multiple times for the same symptoms with a negative workup. ROS POSITIVES: Chest Pain NEGATIVES: fevers, chills, SOB, palpitations, abdominal pain, Lightheadedness, dizziness, motor/sensory loss, nausea, vomiting, changes in bowel habits, urinary symptoms PMHx: Bronchitis, HTN, VT, Coccaine Abuse PSHx: Cardiac Cath is June 2017? Allergies: Denies SocialHx: 1/3 PPD smoker for 35 years. Admits to drinking "a couple" of beers on events and weekends. Denies illicit drug use Hos: 2016 for similar symptoms FamHx: Denies Meds: Norvasc 10 PMD: Dr. Galeano Present on Admission - Present on Admission Any Indicators Present on Admission: No Review of Systems - Review of Systems Review of Systems: As per HPI Past Patient History - Infectious Disease Hx of Infectious Diseases: None - Past Social History Smoking Status: Light Smoker < 10 Cigarettes Daily - CARDIAC Hx Cardiac Disorders: Yes Hx Angina: Yes Hx Hypertension: Yes - PULMONARY Hx Respiratory Disorders: Yes Hx Bronchitis: Yes - NEUROLOGICAL Hx Neurological Disorder: No - HEENT Hx HEENT Problems: No - RENAL Hx Chronic Kidney Disease: No - ENDOCRINE/METABOLIC Hx Endocrine Disorders: No - HEMATOLOGICAL/ONCOLOGICAL Hx Blood Disorders: No - INTEGUMENTARY Hx Dermatological Problems: No - MUSCULOSKELETAL/RHEUMATOLOGICAL Hx Falls: Yes Hx Unsteady Gait: Yes - GASTROINTESTINAL Hx Gastrointestinal Disorders: No - GENITOURINARY/GYNECOLOGICAL Hx Genitourinary Disorders: No - PSYCHIATRIC Hx Anxiety: Yes Hx Depression: Yes Hx Substance Use: Yes (clean 18 yrs as per pt cocaine) - SURGICAL HISTORY Hx Cardiac Catheterization: Yes Other/Comment: Tubal ligation - ANESTHESIA Hx Anesthesia: Yes Hx Anesthesia Reactions: No Hx Malignant Hyperthermia: No Meds Allergies/Adverse Reactions: Allergies Allergy/AdvReac Type Severity Reaction Status Date / Time No Known Allergies Allergy Verified 05/01/17 00:49 Physical Exam - Constitutional Appears: Non-toxic, No Acute Distress Additional comments: Lethargic - Head Exam Head Exam: ATRAUMATIC, NORMAL INSPECTION, NORMOCEPHALIC - Eye Exam Eye Exam: EOMI, Normal appearance - ENT Exam ENT Exam: Mucous Membranes Moist - Neck Exam Neck exam: Negative for: Lymphadenopathy, Thyromegaly - Respiratory Exam Respiratory Exam: Chest Wall Tenderness, Decreased Breath Sounds (B/L), Clear to Auscultation Bilateral. absent: Rales, Rhonchi, Wheezes, Stridor - Cardiovascular Exam Cardiovascular Exam: RRR, +S1, +S2. absent: JVD Additional comments: no Carotid Bruit - GI/Abdominal Exam GI & Abdominal Exam: Normal Bowel Sounds, Soft. absent: Tenderness - Extremities Exam Extremities exam: Positive for: normal capillary refill, pedal pulses present. Negative for: pedal edema - Neurological Exam Neurological exam: Alert, Oriented x3 - Psychiatric Exam Psychiatric exam: Normal Mood Additional comments: Restricted Affect Results - Vital Signs Recent Vital Signs: Last Vital Signs Temp 98.4 F 08/29/17 03:22 Pulse 83 08/29/17 03:22 Resp 18 08/29/17 03:22 BP 138/74 08/29/17 03:22 Pulse Ox 97 08/29/17 03:22 - Labs Result Diagrams: 08/29/17 03:55 08/29/17 03:55 Labs: Laboratory Results - last 24 hr 08/29/17 08/29/17 08/29/17 03:55 03:55 03:55 WBC 4.6 RBC 3.70 Hgb 12.4 Hct 36.3 MCV 98.1 MCH 33.5 MCHC 34.2 RDW 12.3 Plt Count 252 MPV 9.3 PT 10.9 INR 0.96 APTT 29.9 Sodium 147 Potassium 3.9 Chloride 108 H Carbon Dioxide 26 Anion Gap 17 BUN 14 Creatinine 0.7 Est GFR ( Amer) > 60 Est GFR (Non-Af Amer) > 60 Random Glucose 93 Calcium 9.5 Total Bilirubin 0.4 AST 40 H D ALT 32 Alkaline Phosphatase 106 Lactate Dehydrogenase 807 H Total Creatine Kinase 440 H CK-MB (CK-2) 4.1 H CK-MB (CK-2) % Cancelled Troponin I 0.04 Total Protein 7.7 Albumin 4.1 Globulin 3.6 Albumin/Globulin Ratio 1.2 Assessment & Plan - Assessment and Plan (Free Text) Assessment: 52 year old female with a PMHx of HTN, Bronchitis, VT, and Cocaine abuse who presents complaining of 9/10, sharp, substernal, non-radiating, reproducible chest pain. Admitted to observation for evaluation and treatment of chest pain to rule out ACS. Plan: Chest Pain, R/O ACS DDx: Costochondritis, ACS, GERD EKG: NSR, possible Left atrial enlargment, Prolonged QT. PENDING Official Read. Continue to Trend. Troponin: 1st trop NEGATIVE. Continue to Trend CXR: Some peribronchial thickening. PENDING Official Read. ASA 325 Given in the ED. Daily ASA 81 Cardio Consult (Dr. Weiner) Ibuprofen 600 Q6H for Pain control HgBA1c Hx of HTN Home Norvasc 5 Patient states she takes Norvasc 10. Consider increasing to 10mg PO if patient becomes hypertensive Hx of Coccaine Abuse UDS Avoid Beta Blockers until UDS returns Proph SCD's Protonix Patient discussed with Attending Nida Lim, PGY1 <Daphne POLLACK,Robin - Last Filed: 08/29/17 06:54> Results - Vital Signs Recent Vital Signs: Last Vital Signs Temp 98.4 F 08/29/17 03:22 Pulse 92 H 08/29/17 05:22 Resp 19 08/29/17 05:22 BP 125/78 08/29/17 05:22 Pulse Ox 98 08/29/17 05:22 - Labs Result Diagrams: 08/29/17 03:55 08/29/17 03:55 Attending/Attestation - Attestation I have personally seen and examined this patient.: Yes I have fully participated in the care of the patient.: Yes I have reviewed all pertinent clinical information: Yes Notes (Text): -I agree with the above H&P completed by the resident physician with the following additions and/or changes: -The patient is a 52 year old woman with a history of HTN, chronic tobacco use, chronic alcohol abuse and cocaine abuse, who presents with intermittent, non- radiating, non-exertional, substernal chest pain that began earlier this morning. She denies any associated SOB or diaphoresis. Of note, the patient [place] [facility] [place] which was reportedly [place]. Her cardiac work-up at [facility] [place] in late June 2017 was negative as well. She will be admitted for observation and ruled out for ACS with serial trops and EKGs. Cardiology has been consulted. She will be placed on baby ASA. A urine drug screen is pending.
[2017-08-29] MEDS: Pantoprazole 40 mg EC Tab PO SCH (07:17)
--- NOTE | 2017-08-29 08:49 | RAD ---
HISTORY: chest pain COMPARISON: 07/03/2017 FINDINGS: LUNGS: No active pulmonary disease. PLEURA: No significant pleural effusion identified, no pneumothorax apparent. CARDIOVASCULAR: Normal. OSSEOUS STRUCTURES: No significant abnormalities. VISUALIZED UPPER ABDOMEN: Normal. OTHER FINDINGS: None. IMPRESSION: No active disease.
--- NOTE | 2017-08-29 10:25 | CARD ---
APPROVED REPORT EKG Measurement Heart [id number] <Conclusion> Normal sinus rhythm Possible Left atrial enlargement NSSTW changes Prolonged QT No change
--- NOTE | 2017-08-29 10:28 | CARD ---
APPROVED REPORT EKG Measurement Heart [id number] <Conclusion> Normal sinus rhythm Nonspecific T wave abnormality Prolonged QT No change
[2017-08-29] MEDS: Multivitamin With Minerals Tab PO SCH (11:17)
[2017-08-29 13:54] LABS: BARBITURATES, UR NEGATIVE (NEGATIVE); BENZODIAZEPINES, UR NEGATIVE (NEGATIVE); OPIATES, UR NEGATIVE (NEGATIVE); PHENCYCLIDINE, UR NEGATIVE (NEGATIVE)
[2017-08-29] MEDS ORDERED: guaiFENesin DM 100 mg-10 mg/5 ml UD PO PRN (18:55)
[2017-08-29] MEDS: Albuterol-Ipratrop 3 mg / 0.5 (3 ml) UD IH SCH (20:17)
[2017-08-30] MEDS: Pantoprazole 40 mg EC Tab PO SCH (06:02)
--- NOTE | 2017-08-30 06:05 | CON ---
DATE: 08/29/2017 LOCATION: The patient is in room 375, bed 2. REASON FOR CONSULTATION: Chest pain. HISTORY OF PRESENT ILLNESS: The patient is a 52-year-old female, known hypertension and history of bronchitis, admitted with a history that she has mid chest pain since last night. The patient also had local tenderness at the area of chest pain. Denies any relation to exertion. The patient states that two months ago, she was in [facility] and had cardiac catheterization and according to the patient she was told cardiac catheterization was normal. PAST MEDICAL HISTORY: Past history is positive for high blood pressure and bronchitis. ALLERGIES: DENIES ANY ALLERGIES. PERSONAL HISTORY: The patient at present denies smoking or drinking. She used cocaine 18 years ago, since then she stopped. In the past, she states she used to smoke and drink also. FAMILY HISTORY: Not significant. HOME MEDICATIONS: Included amlodipine, Protonix, aspirin 81 mg daily, and Symbicort. REVIEW OF SYSTEMS: All the systems reviewed, positive mentioned in the history, otherwise negative. PHYSICAL EXAMINATION: VITAL SIGNS: Blood pressure 125/78, respirations 19, pulse 92, the patient is afebrile. HEENT: Head is normocephalic. Eyes; pupils are normal. Conjunctivae are normal. Nose and throat are normal. NECK: JVP low. Carotids are equal. THORAX: The patient had tenderness at the area of chest pain. LUNGS: Clear. CARDIOVASCULAR: S1 and S2. ABDOMEN: Soft. No tenderness. No organomegaly. EXTREMITIES: No clubbing. No cyanosis.. LABORATORY DATA: WBC 4.6, hemoglobin 12.4, hematocrit 36.3, and platelets 252. Sodium 147, potassium 3.9, BUN 14, creatinine 0.7. LDH 807. CPK 440. Troponin is 0.04. Total protein 7.7. Albumin 4.1. Chest x-ray, no active disease. EKG; regular sinus rhythm, nonspecific ST-T changes. DIAGNOSES: Chest pain, musculoskeletal pain, history of hypertension, history of bronchitis. PLAN: The patient is on aspirin 81 mg daily, amlodipine 5 mg daily, Protonix 40 mg daily, and erythromycin 500 mg p.o. daily. The patient also started on Motrin 600 mg p.o. q.6 hours p.r.n. As mentioned before, two months ago, cardiac catheterization was normal at [facility]. We will follow with you. Mary Ann Weiner MD
[2017-08-30] MEDS: Albuterol-Ipratrop 3 mg / 0.5 (3 ml) UD IH SCH ×2 (07:44→11:16)
[2017-08-30 07:57] LABS: BASO # 0.01 K/mm3 (0.0-2.0); BASO % 0.2 % (0.0-3.0); EOS # 0.2 (0.0-0.7); EOS % 3.9 % (1.5-5.0); GRAN # 2.23 (1.4-6.5); GRAN % 45.9 % (50.0-68.0); HEMOGLOBIN 12.2 g/dL (12.0-16.0); LYMPH # 2.1 (1.2-3.4); LYMPH % 42.6 % (22.0-35.0); MEAN CELL VOLUME 97.3 fl (80.0-105.0); MEAN CORPUSCULAR HEMOGLOBIN 33.1 pg (25.0-35.0); MEAN PLATELET VOLUME 9.4 fl (7.0-11.0); MONO # 0.4 (0.1-0.6); MONO % 7.4 % (1.0-6.0); RBC 3.69 10^6/uL (3.5-6.1); RED CELL DISTRIBUTION WIDTH 12.2 % (11.5-14.5); WHITE BLOOD COUNT 4.9 10^3/ul (4.5-11.0)
[2017-08-30 08:23] LABS: ALB/GLOB RATIO 1.1 (1.1-1.8); ALBUMIN 3.5 g/dL (3.0-4.8); ALT/SGPT 24 U/L (7-56); AST/SGOT 28 U/L (14-36); BLOOD UREA NITROGEN 15 mg/dL (7-21); CALCIUM 9.7 mg/dL (8.4-10.5); GFR AFRICAN-AMERICAN > 60; GFR NON-AFRICAN AMERICAN > 60
--- NOTE | 2017-08-30 09:24 | CP.PCM.DIS ---
<Jeff Paez - Last Filed: 08/30/17 14:01> Provider - Provider Date of Admission: 08/29/17 05:30 Attending physician: Qing Garcia MD Consults: Cardiology: Dr. Weiner Time Spent in preparation of Discharge (in minutes): 45 Diagnosis - Discharge Diagnosis (1) Bronchitis Status: Acute (2) Chest pain Status: Chronic Priority: Medium (3) Cocaine abuse Status: Acute Priority: High Hospital Course - Lab Results Lab Results: Most Recent Lab Values WBC 4.9 10^3/ul (4.5-11.0) 08/30/17 07:00 RBC 3.69 10^6/uL (3.5-6.1) 08/30/17 07:00 Hgb 12.2 g/dL (12.0-16.0) 08/30/17 07:00 Hct 35.9 % (36.0-48.0) L 08/30/17 07:00 MCV 97.3 fl (80.0-105.0) 08/30/17 07:00 MCH 33.1 pg (25.0-35.0) 08/30/17 07:00 MCHC 34.0 g/dl (31.0-37.0) 08/30/17 07:00 RDW 12.2 % (11.5-14.5) 08/30/17 07:00 Plt Count 215 10^3/uL (120.0-450.0) 08/30/17 07:00 MPV 9.4 fl (7.0-11.0) 08/30/17 07:00 Gran % 45.9 % (50.0-68.0) L 08/30/17 07:00 Lymph % (Auto) 42.6 % (22.0-35.0) H 08/30/17 07:00 Bryan % (Auto) 7.4 % (1.0-6.0) H 08/30/17 07:00 Eos % (Auto) 3.9 % (1.5-5.0) 08/30/17 07:00 Baso % (Auto) 0.2 % (0.0-3.0) 08/30/17 07:00 Gran # 2.23 (1.4-6.5) 08/30/17 07:00 Lymph # (Auto) 2.1 (1.2-3.4) 08/30/17 07:00 Bryan # (Auto) 0.4 (0.1-0.6) 08/30/17 07:00 Eos # (Auto) 0.2 (0.0-0.7) 08/30/17 07:00 Baso # (Auto) 0.01 K/mm3 (0.0-2.0) 08/30/17 07:00 PT 10.9 SECONDS (9.4-12.5) 08/29/17 03:55 INR 0.96 (0.93-1.08) 08/29/17 03:55 APTT 29.9 Seconds (25.1-36.5) 08/29/17 03:55 Sodium 141 mmol/L (132-148) 08/30/17 07:00 Potassium 3.9 mmol/L (3.6-5.0) 08/30/17 07:00 Chloride 105 mmol/L (98-107) 08/30/17 07:00 Carbon Dioxide 29 mmol/L (21-33) 08/30/17 07:00 Anion Gap 11 (10-20) 08/30/17 07:00 BUN 15 mg/dL (7-21) 08/30/17 07:00 Creatinine 0.8 mg/dl (0.7-1.2) 08/30/17 07:00 Est GFR ( Amer) > 60 08/30/17 07:00 Est GFR (Non-Af Amer) > 60 08/30/17 07:00 Random Glucose 88 mg/dL (70-110) 08/30/17 07:00 Hemoglobin A1c 5.5 % (4.2-6.5) 08/29/17 03:45 Calcium 9.7 mg/dL (8.4-10.5) 08/30/17 07:00 Total Bilirubin 0.8 mg/dL (0.2-1.3) 08/30/17 07:00 AST 28 U/L (14-36) 08/30/17 07:00 ALT 24 U/L (7-56) 08/30/17 07:00 Alkaline Phosphatase 76 U/L (38-126) 08/30/17 07:00 Lactate Dehydrogenase 807 U/L (333-699) H 08/29/17 03:55 Total Creatine Kinase 440 U/L (35-230) H 08/29/17 03:55 CK-MB (CK-2) 4.1 ng/mL (0.0-3.6) H 08/29/17 03:55 CK-MB (CK-2) % Cancelled 08/29/17 03:55 Troponin I 0.04 ng/mL 08/29/17 03:55 Total Protein 6.8 g/dL (5.8-8.3) 08/30/17 07:00 Albumin 3.5 g/dL (3.0-4.8) 08/30/17 07:00 Globulin 3.2 gm/dL 08/30/17 07:00 Albumin/Globulin Ratio 1.1 (1.1-1.8) 08/30/17 07:00 Urine Opiates Screen Negative (NEGATIVE) 08/29/17 12:09 Urine Methadone Screen Negative (NEGATIVE) 08/29/17 12:09 Ur Barbiturates Screen Negative (NEGATIVE) 08/29/17 12:09 Ur Phencyclidine Scrn Negative (NEGATIVE) 08/29/17 12:09 Ur Amphetamines Screen Negative (NEGATIVE) 08/29/17 12:09 U Benzodiazepines Scrn Negative (NEGATIVE) 08/29/17 12:09 U Oth Cocaine Metabols Positive (NEGATIVE) H 08/29/17 12:09 U Cannabinoids Screen Negative (NEGATIVE) 08/29/17 12:09 - Hospital Course Hospital Course: Patient is a 52 year old female with a PMHx of HTN, Bronchitis, ID, and Cocaine abuse who presented with complaints of 9/10, sharp, substernal, non-radiating, reproducible chest pain which was present for a few days. Patient denied any triggering factors. Also denied fevers, chills, SOB, palpitations, abdominal pain, Lightheadedness, dizziness, motor/sensory loss, nausea, vomiting, changes in bowel habits, or urinary symptoms. Per patient, she had an ID two months ago. A diagnostic catherization was performed at that time and showed no blockage. Patient has been to [facility] multiple times for the same symptoms with a negative workup. This current admission patient's cardiac workup was also negative however with the endorsement of green sputum production patient was treated for bronchitis. Chest x-ray ordered revealed no sign of active disease and patient's labs did not reveal leukocytosis and patient febrile. Patient stated her symptoms were improving with the medications she was receiving. Patient is being discharged with symbicort 160/4.5, albuterol HFA, robitussin, and zithromax. Drug cessation was discussed with patient as toxicology reports revealed positive for cocaine abuse. Case discussed and reviewed with Dr. Jose Paez PGY1 Discharge Exam - Head Exam Head Exam: ATRAUMATIC, NORMAL INSPECTION, NORMOCEPHALIC - Eye Exam Eye Exam: EOMI, Normal appearance - ENT Exam ENT Exam: Mucous Membranes Moist - Respiratory Exam Respiratory Exam: NORMAL BREATHING PATTERN, UNREMARKABLE. absent: Rhonchi, Wheezes - Cardiovascular Exam Cardiovascular Exam: REGULAR RHYTHM, +S1, +S2 - GI/Abdominal Exam GI & Abdominal Exam: Normal Bowel Sounds, Unremarkable - Neurological Exam Neurological exam: Alert, Oriented x3 - Psychiatric Exam Psychiatric exam: Normal Affect, Normal Mood - Skin Skin Exam: Intact, Normal Color, Warm Discharge Plan - Discharge Medications Prescriptions: Albuterol HFA [Ventolin HFA 90 mcg/actuation (8 g)] 2 puff IH [id number] #1 puff Azithromycin [Zithromax] 250 mg PO DAILY 3 Days #3 tab Budesonide/Formoterol Fumarate [Symbicort 160-4.5 Mcg Inhaler] 2 puff IH DAILY # 1 hfa.aer.ad guaiFENesin/Dextromethorphan [Robitussin DM] 5 ml PO Q4H PRN #1 bottle PRN Reason: Cough - Follow Up Plan Condition: STABLE Disposition: HOME/ ROUTINE Instructions: Acute Bronchitis, Adult (DC), Chest Pain (DC) Additional Instructions: 1. Please follow up with your PMD within 3-5 days regarding this admission 2. Please go to your pharmacy and take medications as prescribed. 3. Do not hesitate to return if your symptoms return or worsen. <Qing Garcia - Last Filed: 08/30/17 17:14> Provider - Provider Date of Admission: 08/29/17 05:30 Attending physician: Qing Garcia MD Hospital Course - Lab Results Lab Results: Most Recent Lab Values WBC 4.9 10^3/ul (4.5-11.0) 08/30/17 07:00 RBC 3.69 10^6/uL (3.5-6.1) 08/30/17 07:00 Hgb 12.2 g/dL (12.0-16.0) 08/30/17 07:00 Hct 35.9 % (36.0-48.0) L 08/30/17 07:00 MCV 97.3 fl (80.0-105.0) 08/30/17 07:00 MCH 33.1 pg (25.0-35.0) 08/30/17 07:00 MCHC 34.0 g/dl (31.0-37.0) 08/30/17 07:00 RDW 12.2 % (11.5-14.5) 08/30/17 07:00 Plt Count 215 10^3/uL (120.0-450.0) 08/30/17 07:00 MPV 9.4 fl (7.0-11.0) 08/30/17 07:00 Gran % 45.9 % (50.0-68.0) L 08/30/17 07:00 Lymph % (Auto) 42.6 % (22.0-35.0) H 08/30/17 07:00 Bryan % (Auto) 7.4 % (1.0-6.0) H 08/30/17 07:00 Eos % (Auto) 3.9 % (1.5-5.0) 08/30/17 07:00 Baso % (Auto) 0.2 % (0.0-3.0) 08/30/17 07:00 Gran # 2.23 (1.4-6.5) 08/30/17 07:00 Lymph # (Auto) 2.1 (1.2-3.4) 08/30/17 07:00 Bryan # (Auto) 0.4 (0.1-0.6) 08/30/17 07:00 Eos # (Auto) 0.2 (0.0-0.7) 08/30/17 07:00 Baso # (Auto) 0.01 K/mm3 (0.0-2.0) 08/30/17 07:00 PT 10.9 SECONDS (9.4-12.5) 08/29/17 03:55 INR 0.96 (0.93-1.08) 08/29/17 03:55 APTT 29.9 Seconds (25.1-36.5) 08/29/17 03:55 Sodium 141 mmol/L (132-148) 08/30/17 07:00 Potassium 3.9 mmol/L (3.6-5.0) 08/30/17 07:00 Chloride 105 mmol/L (98-107) 08/30/17 07:00 Carbon Dioxide 29 mmol/L (21-33) 08/30/17 07:00 Anion Gap 11 (10-20) 08/30/17 07:00 BUN 15 mg/dL (7-21) 08/30/17 07:00 Creatinine 0.8 mg/dl (0.7-1.2) 08/30/17 07:00 Est GFR ( Amer) > 60 08/30/17 07:00 Est GFR (Non-Af Amer) > 60 08/30/17 07:00 Random Glucose 88 mg/dL (70-110) 08/30/17 07:00 Hemoglobin A1c 5.5 % (4.2-6.5) 08/29/17 03:45 Calcium 9.7 mg/dL (8.4-10.5) 08/30/17 07:00 Total Bilirubin 0.8 mg/dL (0.2-1.3) 08/30/17 07:00 AST 28 U/L (14-36) 08/30/17 07:00 ALT 24 U/L (7-56) 08/30/17 07:00 Alkaline Phosphatase 76 U/L (38-126) 08/30/17 07:00 Lactate Dehydrogenase 807 U/L (333-699) H 08/29/17 03:55 Total Creatine Kinase 440 U/L (35-230) H 08/29/17 03:55 CK-MB (CK-2) 4.1 ng/mL (0.0-3.6) H 08/29/17 03:55 CK-MB (CK-2) % Cancelled 08/29/17 03:55 Troponin I 0.04 ng/mL 08/29/17 03:55 Total Protein 6.8 g/dL (5.8-8.3) 08/30/17 07:00 Albumin 3.5 g/dL (3.0-4.8) 08/30/17 07:00 Globulin 3.2 gm/dL 08/30/17 07:00 Albumin/Globulin Ratio 1.1 (1.1-1.8) 08/30/17 07:00 Urine Opiates Screen Negative (NEGATIVE) 08/29/17 12:09 Urine Methadone Screen Negative (NEGATIVE) 08/29/17 12:09 Ur Barbiturates Screen Negative (NEGATIVE) 08/29/17 12:09 Ur Phencyclidine Scrn Negative (NEGATIVE) 08/29/17 12:09 Ur Amphetamines Screen Negative (NEGATIVE) 08/29/17 12:09 U Benzodiazepines Scrn Negative (NEGATIVE) 08/29/17 12:09 U Oth Cocaine Metabols Positive (NEGATIVE) H 08/29/17 12:09 U Cannabinoids Screen Negative (NEGATIVE) 08/29/17 12:09 Attending/Attestation - Attestation I have personally seen and examined this patient.: Yes I have fully participated in the care of the patient.: Yes I have reviewed all pertinent clinical information, including history, physical exam and plan: Yes Notes (Text): I have seen and examined the patient at bedside. Agree with the above note with the following additions/ exceptions: Briefly this is 52 year old female with history of HTN, Bronchitis, ID, and Cocaine abuse who came for evaluation of chest pain which is most likely musculo skeletal in nature. She reports that cardiac [place] was [place] 2 months ago [place] [facility] [place] Re[employer] Facilities Supervisor cleared the patient for discharge. Patient also reported cough, greenish sputum and was started on duonebs, robitussin and zithro. Patient reports improvement in cough. UDS positive for cocaine. Counselling provided regarding that. Advised patient to follow up with Dr Galeano. Dr Qing Garcia
[2017-08-30] MEDS: Multivitamin With Minerals Tab PO SCH (10:25)
[2017-08-30 13:06] VITALS: BP 129/79; PULSE 70; RESP 18; TEMP 98.1; O2SAT 97
[2017-08-30] MEDS ORDERED: Pneumococcal 23-Valent Vaccine IM ONE (14:28)
--- NOTE | 2017-08-30 16:14 | PN ---
DATE: 08/30/2017 LOCATION: Patient in room 375, bed 2. REASON FOR CONSULTATION: Chest pain. SUBJECTIVE: The patient still complain of pain in chest, but she has some local tenderness on the area of the pain. Two months ago, patient was in [facility] and had cardiac catheterization and according to patient, she was told it was normal. Patient said that she had not used cocaine for 18 years, but urine toxicology is positive for cocaine. Patient lying flat in bed without any respiratory distress or palpitation. PHYSICAL EXAMINATION: VITAL SIGNS: Blood pressure 129/79, respirations 18, pulse 70, temperature 98.1. HEENT: Head is normocephalic. Eyes: Pupils normal. Conjunctivae normal. Nose and throat normal. NECK: JVP low. Carotid equal. THORAX: AP diameter normal. LUNGS: Clear. CARDIOVASCULAR: S1, S2. ABDOMEN: Soft. No tenderness, no organomegaly. Bowel sounds normal. EXTREMITIES: No clubbing, no cyanosis. LABORATORY DATA: Showed WBC 4.9, hemoglobin 12.2, hematocrit 35.9, platelets 215. Sodium 141, potassium 3.9, BUN 15, creatinine 0.8, AST and ALT normal, total protein and albumin normal. Urine screening for drug showed cocaine positive. DIAGNOSES: Chest pain, musculoskeletal, patient has tenderness on the area of the pain. As per patient, two months ago, cardiac catheterization at [facility] normal; hypertension, bronchitis; drug abuse, cocaine, urine toxicology positive. PLAN: Patient on ibuprofen, aspirin 81 mg daily, amlodipine 5 mg daily, Protonix 40 daily, azithromycin 500 mg daily for cough. We will follow with you. Mary Ann Weiner MD
== END 2017-08-30 15:52 | disposition home or self-care (01) ==
LOC: ED 03:22 → ERH 05:30 → 3RSO 07:14
PROVIDERS: ADMIT Internal Medicine Nephrology; ATTEND Hospitalist
DX: R07.89 Other chest pain (principal); F14.10 Cocaine abuse, uncomplicated; I10 Essential (primary) hypertension; J40 Bronchitis, not specified as acute or chronic; I25.2 Old myocardial infarction; Z79.51 Long term (current) use of inhaled steroids; Z79.82 Long term (current) use of aspirin; R40.2412 Glasgow coma scale score 13-15, at arrival to emergency department; Z23 Encounter for immunization
CPT/HCPCS: 36415; 71045; 80053; 80324; 80345; 80346; 80349; 80353; 80358; 80361; 82550; 82553; 83036; 83615; 83992; 84484; 85025; 85027; 85610; 85730; 90471; 90732; 93005; 94640; 99285; G0378

== ENCOUNTER 2017-09-02 03:26 | Emergency (ER) | payer MEDICARE, OTHER ==
[2017-09-02 03:26] VITALS: BMI 38.0
[2017-09-02 04:03] VITALS: RESP 16
--- NOTE | 2017-09-02 04:57 | ED PDOC ---
Arrival/HPI - General Chief Complaint: Chest Pain Time Seen by Provider: 09/02/17 03:56 Historian: Patient - History of Present Illness Narrative History of Present Illness (Text): 09/02/17 04:16 A 52 year old female, whose past medical history includes asthma, EtOH abuse, and chronic chest pain, is brought in by ambulance and presents to the emergency department complaining of chest discomfort for 2 months. Patient reports recent cardiac catheterization procedure performed, which resulted in being normal.Patient was just discharged 2 days ago seen and evaluated by the label stitcher on that admission. Patient denies any other complaints at this time. No PMD Time/Duration: Other (2 months) Symptom Onset: Sudden Symptom Course: Unchanged Past Medical History - Provider Review Nursing Documentation Reviewed: Yes - Infectious Disease Hx of Infectious Diseases: None - Cardiac Hx Cardiac Disorders: Yes Hx Angina: Yes Hx Hypertension: Yes - Pulmonary Hx Respiratory Disorders: Yes Hx Bronchitis: Yes - Neurological Hx Neurological Disorder: No - HEENT Hx HEENT Disorder: No - Renal Hx Renal Disorder: No - Endocrine/Metabolic Hx Endocrine Disorders: No - Hematological/Oncological Hx Blood Disorders: No - Integumentary Hx Dermatological Disorder: No - Musculoskeletal/Rheumatological Hx Falls: Yes Hx Unsteady Gait: Yes - Gastrointestinal Hx Gastrointestinal Disorders: No - Genitourinary/Gynecological Hx Genitourinary Disorders: No - Psychiatric Hx Anxiety: Yes Hx Depression: Yes Hx Substance Use: Yes (clean 18 yrs as per pt cocaine) - Surgical History Hx Cardiac Catheterization: Yes Other/Comment: Tubal ligation - Anesthesia Hx Anesthesia: Yes Hx Anesthesia Reactions: No Hx Malignant Hyperthermia: No Family/Social History - Physician Review Nursing Documentation Reviewed: Yes Family/Social History: No Known Family HX Smoking Status: Heavy Smoker > 10 Cigarettes Daily Hx Alcohol Use: Yes (beer last night) Hx Substance Use: Yes (clean 18 yrs as per pt cocaine) Allergies/Home Meds Allergies/Adverse Reactions: Allergies No Known Allergies Allergy (Verified 05/01/17 00:49) Review of Systems - Physician Review All systems were reviewed & negative as marked: Yes - Review of Systems Constitutional: absent: Fevers, Night Sweats Respiratory: absent: SOB, Cough Cardiovascular: Chest Pain Physical Exam Vital Signs Reviewed: Yes Vital Signs Temp Pulse Resp BP Pulse Ox 09/02/17 05:26 98.7 F 76 16 129/83 100 09/02/17 03:56 97.8 F 80 16 124/70 98 Temperature: Afebrile Blood Pressure: Normal Pulse: Regular Respiratory Rate: Normal Appearance: Positive for: Well-Appearing Pain Distress: None Mental Status: Positive for: Alert and Oriented X 3 - Systems Exam Head: Present: Atraumatic, Normocephalic Pupils: Present: PERRL Extroacular Muscles: Present: EOMI Conjunctiva: Present: Normal Mouth: Present: Moist Mucous Membranes Neck: Present: Normal Range of Motion Respiratory/Chest: Present: Clear to Auscultation, Good Air Exchange, Tender to Palpation (anterior chest wall). No: Respiratory Distress, Accessory Muscle Use Cardiovascular: Present: Regular Rate and Rhythm, Normal S1, S2. No: Murmurs Abdomen: Present: Normal Bowel Sounds. No: Tenderness, Distention, Peritoneal Signs Back: Present: Normal Inspection Upper Extremity: Present: Normal Inspection. No: Cyanosis, Edema Lower Extremity: Present: Normal Inspection. No: Edema Neurological: Present: GCS=15, CN II-XII Intact, Speech Normal Skin: Present: Warm, Dry, Normal Color. No: Rashes Psychiatric: Present: Alert, Oriented x 3, Normal Insight, Normal Concentration Medical Decision Making ED Course and Treatment: 09/02/17 04:19 Impression: 52 year old female with chest discomfort. Physical exam shows tender to palpation to anterior chest wall. Plan: -- EKG -- Chest X-ray -- Toradol -- Reassess and disposition Prior Visits: Notes and results from previous visits were reviewed. Patient was last seen in the emergency department on 08/29/2017 for midsternal chest discomfort. Patient was admitted. Progress Notes: - RAD Interpretation Radiology Orders: 09/02/17 04:18 CHEST PORTABLE [RAD] Stat - Medication Orders Current Medication Orders: Discontinued Medications Ketorolac Tromethamine (Toradol) 60 mg IM ONCE ONE Stop: 09/02/17 04:20 Last Admin: 09/02/17 04:20 Dose: 60 mg [facility] Pain Assessment Document 09/02/17 04:20 AB (Rec: 09/02/17 05:16 AB [id number]) Pain Reassessment Is this a pain reassessment? Yes Sleep Is patient sleeping during reassessment? No Presence of Pain Presence of Pain Yes Pain Scale Used Pain Scale Used Numeric Location Upper or Lower Upper Pain Location Body Site Chest Description Description Intermittent Intensity of Pain at present 6 Pain Behavior Guarding Alleviating Factors/Management Medication Techniques Alleviating Factors Medication IM Administration Charges Document 09/02/17 04:20 AB (Rec: 09/02/17 05:16 AB [id number]) Injection Site MAR Injection Site Left Deltoid Charges for Administration # of IM Administrations 1 - Scribe Statement The provider has reviewed the documentation as recorded by the Liliyaibamanda Garzon Provider Scribe Attestation: All medical record entries made by the Scribe were at my direction and personally dictated by me. I have reviewed the chart and agree that the record accurately reflects my personal performance of the history, physical exam, medical decision making, and the department course for this patient. I have also personally directed, reviewed, and agree with the discharge instructions and disposition. Disposition/Present on Arrival - Present on Arrival Any Indicators Present on Arrival: No History of DVT/PE: No History of Uncontrolled Diabetes: No Urinary Catheter: No History of Decub. Ulcer: No History Surgical Site Infection Following: None - Disposition Have Diagnosis and Disposition been Completed?: Yes Diagnosis: Musculoskeletal chest pain Disposition: HOME/ ROUTINE Disposition Time: 06:38 Patient Plan: Discharge Condition: GOOD Discharge Instructions (ExitCare): Chest Pain (ED) Additional Instructions: Rest/no strenuous physical activity /advil as directed/follow up with your doctor this week Forms: [employer] [facility] (Azeri)
[2017-09-02 06:21] VITALS: O2SAT 100
[2017-09-02 06:56] VITALS: BP 124/67; PULSE 74; TEMP 98.6
--- NOTE | 2017-09-02 09:52 | RAD ---
HISTORY: chest pain COMPARISON: 08/29/2017 FINDINGS: LUNGS: No active pulmonary disease. PLEURA: No significant pleural effusion identified, no pneumothorax apparent. CARDIOVASCULAR: Mild cardiomegaly OSSEOUS STRUCTURES: No significant abnormalities. VISUALIZED UPPER ABDOMEN: Normal. OTHER FINDINGS: None. IMPRESSION: No active disease.
--- NOTE | 2017-09-02 21:56 | CARD ---
APPROVED REPORT EKG Measurement Heart [id number] <Conclusion> Normal sinus rhythm Nonspecific T wave abnormality Prolonged QT Abnormal ECG
== END 2017-09-02 06:55 | disposition home or self-care (01) ==
LOC: ED 03:26
DX: R07.89 Other chest pain (principal); F17.210 Nicotine dependence, cigarettes, uncomplicated; I10 Essential (primary) hypertension
CPT/HCPCS: 71045; 93005; 96372; 99284; J1885

== ENCOUNTER 2018-05-05 02:09 | Emergency (ER) | payer MEDICARE ==
[2018-05-05 02:09] VITALS: BMI 38.0
--- NOTE | 2018-05-05 03:02 | ED PDOC ---
Arrival/HPI - General Chief Complaint: Chest Pain Time Seen by Provider: 05/05/18 02:31 Historian: Patient - History of Present Illness Narrative History of Present Illness (Text): 05/05/18 03:04 53 year old female, whose past medical history includes asthma, EtOH abuse, and chronic chest pain, is brought in by ambulance and presents to the emergency department complaining of chronic chest pain, for 2 months. Patient states she has constant chest pain. Patient states her sister and she feels depressed, and wants to kill herself. Patient denies any fevers, chills, headache, dizziness, abdominal pain, nausea, vomiting, diarrhea, back pain, neck pain, urinary/bowel changes, or any other complaint. 05/05/18 03:23 Time/Duration: Prior to Arrival Past Medical History - Provider Review Nursing Documentation Reviewed: Yes - Infectious Disease Hx of Infectious Diseases: None - Cardiac Hx Cardiac Disorders: Yes Hx Hypertension: Yes Hx Peripheral Edema: Yes (ble +1 pitting) - Pulmonary Hx Respiratory Disorders: Yes Hx Asthma: Yes Hx Bronchitis: Yes - Neurological Hx Neurological Disorder: No - HEENT Hx HEENT Disorder: No - Renal Hx Renal Disorder: No - Endocrine/Metabolic Hx Endocrine Disorders: No - Hematological/Oncological Hx Blood Disorders: No - Integumentary Hx Dermatological Disorder: No - Musculoskeletal/Rheumatological Hx Falls: Yes Hx Unsteady Gait: Yes - Gastrointestinal Hx Gastrointestinal Disorders: No - Genitourinary/Gynecological Hx Genitourinary Disorders: No - Psychiatric Hx Anxiety: Yes Hx Depression: Yes Hx Substance Use: Yes (clean 18 yrs as per pt cocaine) - Surgical History Hx Cardiac Catheterization: Yes Other/Comment: Tubal ligation - Anesthesia Hx Anesthesia: Yes Hx Anesthesia Reactions: No Hx Malignant Hyperthermia: No Family/Social History - Physician Review Nursing Documentation Reviewed: Yes Family/Social History: No Known Family HX Smoking Status: Heavy Smoker > 10 Cigarettes Daily Hx Alcohol Use: Yes (beer last night) Hx Substance Use: Yes (clean 18 yrs as per pt cocaine) Allergies/Home Meds Allergies/Adverse Reactions: Allergies No Known Allergies Allergy (Verified 05/01/17 00:49) Review of Systems - Physician Review All systems were reviewed & negative as marked: Yes - Review of Systems Constitutional: absent: Fevers, Night Sweats Cardiovascular: Chest Pain Gastrointestinal: absent: Abdominal Pain, Diarrhea, Nausea, Vomiting Genitourinary Female: absent: Urine Output Changes Musculoskeletal: absent: Back Pain, Neck Pain Neurological: absent: Headache, Dizziness Psychiatric: Suicidal Ideation Physical Exam Vital Signs Reviewed: Yes Vital Signs Temp Pulse Resp BP Pulse Ox 05/05/18 02:38 97.8 F 73 18 135/93 H 97 Temperature: Afebrile Blood Pressure: Hypertensive Pulse: Regular Respiratory Rate: Normal Appearance: Positive for: Well-Appearing, Non-Toxic, Comfortable Pain Distress: None Mental Status: Positive for: Alert and Oriented X 3 - Systems Exam Head: Present: Atraumatic, Normocephalic Pupils: Present: PERRL Extroacular Muscles: Present: EOMI Conjunctiva: Present: Normal Mouth: Present: Moist Mucous Membranes Neck: Present: Normal Range of Motion Respiratory/Chest: Present: Clear to Auscultation, Good Air Exchange. No: Respiratory Distress, Accessory Muscle Use Cardiovascular: Present: Regular Rate and Rhythm, Normal S1, S2. No: Murmurs Abdomen: No: Tenderness, Distention, Peritoneal Signs Back: Present: Normal Inspection Upper Extremity: Present: Normal Inspection. No: Cyanosis, Edema Lower Extremity: Present: Normal Inspection. No: Edema Skin: Present: Warm, Dry, Normal Color. No: Rashes Psychiatric: Present: Alert, Oriented x 3, Normal Insight, Normal Concentration Medical Decision Making ED Course and Treatment: 05/05/18 03:09 Patient denies any suicidal ideation or depression to nurse when asked to give her cellphone as per PES protocol. Patient is being manipulative, and has chosen to deny all her symptoms and leave. - RAD Interpretation Radiology Orders: 05/05/18 02:57 CHEST PORTABLE [RAD] Stat - EKG Interpretation EKG Interpretation (Text): 05/05/18 03:23 sinus bradycardia rate 57 nssts changes - Scribe Statement The provider has reviewed the documentation as recorded by the Liliyaibamanda Knox Provider Scribe Attestation: All medical record entries made by the Scribe were at my direction and personally dictated by me. I have reviewed the chart and agree that the record accurately reflects my personal performance of the history, physical exam, medical decision making, and the department course for this patient. I have also personally directed, reviewed, and agree with the discharge instructions and disposition. Disposition/Present on Arrival - Present on Arrival Any Indicators Present on Arrival: No History of DVT/PE: No History of Uncontrolled Diabetes: No Urinary Catheter: No History of Decub. Ulcer: No History Surgical Site Infection Following: None - Disposition Have Diagnosis and Disposition been Completed?: Yes Diagnosis: Chest pain Disposition: AGAINST MEDICAL ADVICE Disposition Time: 03:25 Condition: UNKNOWN Discharge Instructions (ExitCare): Chest Pain (ED) Referrals: Issac Galeano MD [Primary Care Provider] - Follow up with primary Forms: [employer] (Khmer)
--- NOTE | 2018-05-05 08:16 | CARD ---
APPROVED REPORT Date of service: 05/05/2018 EKG Measurement Heart [id number] [place] [id number] [id number] <Conclusion> Sinus bradycardia Possible Left atrial enlargement LVH by voltage Nonspecific T wave abnormality Prolonged QT
[2018-05-05 10:48] VITALS: BP 135/93; PULSE 73; RESP 18; TEMP 97.8; O2SAT 97
== END 2018-05-05 03:20 | disposition left against medical advice (07) ==
LOC: ED 02:09
DX: R07.9 Chest pain, unspecified (principal); I10 Essential (primary) hypertension; F17.210 Nicotine dependence, cigarettes, uncomplicated